=== PATIENT | male | born 1935 | race Caucasian/White ===

== ENCOUNTER 2019-08-15 13:53 | Outpatient (CLI) | payer MEDICARE, SELFPAY ==
--- NOTE | 2019-08-15 14:04 | XR_ITS ---
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 Sternotomy with mediastinal clips. Elevation right hemidiaphragm. Lungs: Moderate chronic emphysematous changes. No acute pulmonary infiltrates. Bones: Mild thoracic curve. Right rotator cuff anchor. XR/XR chest 2V* [id number] IMPRESSION: 1. Moderate chronic emphysematous changes. No acute pulmonary infiltrates. 2. Sternotomy with CABG. 3. Chronic elevation right hemidiaphragm unchanged.
== END 2019-08-15 13:54 | disposition home or self-care (01) ==
LOC: RADWPI 13:58
PROVIDERS: Family Provider Family Medicine; PCP Family Medicine; Visit Provider Family Medicine
DX: R76.11 Nonspecific reaction to tuberculin skin test without active tuberculosis (principal); Z95.1 Presence of aortocoronary bypass graft
CPT/HCPCS: 71046

== ENCOUNTER 2019-11-28 20:59 | Inpatient (IN) | payer MEDICARE, SELFPAY ==
[2019-11-28 21:09] VITALS: BP 110/60; PULSE 82; RESP 17; TEMP 37; O2SAT 94; BMI 30.7
--- NOTE | 2019-11-28 21:12 | XRR_ITS ---
PROCEDURE INFORMATION: Exam: XR Chest, 1 View Exam date and time: 11/28/2019 9:32 PM Age: 84 years old Clinical indication: Other: Weakness; Prior surgery; Surgery type: Cabg; Patient HX: PT denies cp, SOB or cough TECHNIQUE: Imaging protocol: XR of the chest Views: 1 view. COMPARISON: CR XR chest 2V* [id number] 08/15/2019 2:22 PM FINDINGS: Lungs: Lungs are well aerated without a focal area of consolidation. Pleural space: Unremarkable. No pleural effusion. No pneumothorax. Heart/Mediastinum: cardiac silhouette is enlarged. Prior sternotomy. Bones/joints: See Heart/Mediastinum finding. XR/XR chest 1V portable [id number] IMPRESSION: Lungs are well aerated without a focal area of consolidation.
--- NOTE | 2019-11-28 21:13 | ECG_ITS ---
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 Measurements Intervals Arabi Rate: 74 P: 11 DC: 176 QRS: -5 QRSD: 110 T: -7 QT: 401 QTc: 447 Interpretive Statements SINUS RHYTHM MODERATE VOLTAGE CRITERIA FOR LVH, CONSIDER NORMAL VARIANT [MEETS CRITERIA IN ONE OF: R(aVL), S(V1), R(V5), R(V5/V6)+S(V1)] INFERIOR MYOCARDIAL INFARCTION , OF INDETERMINATE AGE [40+ ms Q WAVE AND/OR ST/T ABNORMALITY IN II/aVF] No previous ECG available for comparison Electronically Signed On 11-29-2019 18:26:17 CDT by Catrina Feldman M.D. [email or web address]
--- NOTE | 2019-11-28 21:14 | ED_ITS ---
HPI - Weakness General: Chief complaint: Weakness Stated complaint: WEAKNESS/FALL Time Seen by Provider: 11/28/19 21:08 Source: patient and EMS Mode of arrival: EMS Limitations: no limitations History of Present Illness: HPI Narrative: 84-year-old male states has been having weakness over the last 2 days. He states that he has had 2 falls. He denies any cough or fever. Denies any worsening or improving factors. States he just feels weak. Complaint: generalized weakness Associated symptoms: Denies chest pain, chills, dysuria, easy bruising, fever(s), headache(s), nausea or vomiting Review of Systems Const: Denies: fever(s), chills, body aches or change in appetite Eyes: Denies: blurry vision or eye discomfort ENMT: Denies: throat pain or dental pain Card: Denies: chest pain Resp: Denies: dyspnea GI: Denies: abdominal pain, nausea, vomiting or diarrhea : Denies: dysuria Musc: Reports: muscle weakness Skin/Breast: Denies: rash Neuro: Denies: headache(s) Psych: Denies: depression Ty/Lymph: Denies: easy bruising All/Imm: Denies: urticaria PFSH ED PFSH: Medical History Diabetes Hypertension Lumbar spinal stenosis Surgical History History of coronary artery bypass graft Social History Smoking and tobacco status: never smoked Alcohol intake: never Physical Exam Const: COMMON NORMALS: no acute distress, patient oriented x3 and healthy appearing HENMT: COMMON NORMALS: normocephalic and atraumatic HEAD & SCALP: normocephalic and atraumatic Eye: COMMON NORMALS: Equal, round and reactive pupils present and EOMs intact bilaterally PUPIL: Yes Equal, round and reactive pupils present Neck/C-Spine: COMMON NORMALS: full ROM and supple Chest: COMMONS NORMALS: normal inspection of the chest and normal palpation of entire chest wall Resp: COMMON NORMALS: normal respiratory effort, No retractions, No use of accessory muscles and clear to auscultation bilaterally AUSCULTATION: clear to auscultation bilaterally Cardio: COMMON NORMALS: regular rate, regular rhythm and No murmurs present (Cardio) RATE: regular rate RHYTHM: regular rhythm GI: COMMON NORMALS: Normal to inspection, nondistended, normoactive bowel sounds present, Soft to palpation, non-tender and no masses PALPATION: Yes Soft to palpation Extremity: COMMON NORMALS: normal to inspection and full ROM Neuro: COMMON NORMALS: patient oriented x3, moves all extremities and no focal motor deficits Psych: COMMON NORMALS: mental status grossly normal, Normal thought process present and cooperative THOUGHT PROCESS: Normal thought process present Skin: COMMON NORMALS: no rashes or lesions noted and no wounds GENERAL SKIN EXAM: no rashes or lesions noted Course Vital Signs: Vital signs: Vital Signs Temperature 98.6 F 11/28/19 21:09 Pulse Rate 62 11/28/19 23:10 Respiratory Rate 16 11/28/19 23:10 Blood Pressure 105/51 11/28/19 23:10 Pulse Oximetry 96 11/28/19 23:10 MDM - Weakness MDM Narrative: Medical decision making narrative: Later presents here with generalized weakness likely from hyponatremia. He has had multiple falls. Patient given IV fluids here and I spoke to hospitalist will admit to correct his sodium. Lab Data: Labs: Lab Results 11/28/19 11/28/19 11/28/19 Range/Units 20:50 20:50 23:09 WBC 5.4 (4.0-10.0) 10^3/ uL RBC 4.28 (4.1-5.3) 10^6/u L Hgb 13.2 (11.7-16.6) g/dL Hct 39.0 L (42.0-52.0) % MCV 91.1 (80-94) fL MCH 30.8 (28.0-34.0) pg MCHC 33.8 (30.0-36.0) g/dL RDW 12.5 (12.1-15.1) % Plt Count 158 (130-400) 10^3/c mm MPV 8.9 (7.4-10.4) fL Neut % (Auto) 67.8 % Lymph % (Auto) 25.1 % [place] % (Auto) 6.3 % Eos % (Auto) 0.0 % Baso % (Auto) 0.4 % Neut # (Auto) 3.65 (1.8-7.7) 10^3/u L Lymph # (Auto) 1.4 (0.8-4.8) 10^3/u L [place] # (Auto) 0.3 (0.2-0.9) 10^3/u L Eos # (Auto) 0.0 (0.0-0.8) 10^3/u L Baso # (Auto) 0.0 (0.0-0.1) 10^3/u L Nucleated RBC % (a uto) 0 % Nucleated RBCs # 0.0 /100WBC Sodium 125 L (136-145) mmol/L Potassium 4.3 (3.5-5.1) mmol/L Chloride 91 L (98-107) mmol/L Carbon Dioxide 23 (22-29) mmol/L Anion Gap 15.3 (5-19) BUN 20 (8-23) mg/dL Creatinine 1.5 H (0.7-1.2) mg/dL GFR Calculation Not Reportable Glucose 225 H (65-115) mg/dL Calculated Osmolal ity 270 L (285-295) mOsm/k g Calcium 8.5 (8.5-10.5) mg/dL Total Bilirubin 0.3 (0.15-1.2) mg/dL AST 25 (0-40) U/L ALT 20 (0-41) U/L Alkaline Phosphata se 81 (40-130) IU/L Total Protein 6.7 (6.6-8.7) g/dL Albumin 3.6 (3.5-5.2) g/dL Globulin 3.1 (1.3-4.6) g/dL Urine Color Yellow (Yellow) Urine Appearance Clear (CLEAR) Urine pH 5 (5-7) Ur Specific Gravit y 1.020 (1.005-1.030) Urine Protein Neg (Negative) Urine Glucose (UA) Norm (Normal) Urine Ketones Negative (Negative) Urine Blood Neg (Negative) Urine Nitrate Negative (Negative) Urine Bilirubin Neg (Negative) Urine Urobilinogen Norm (Negative) mg/dL Ur Leukocyte Amelia ase Negative (Negative) Imaging Data^: CT Head: Attestation: I personally reviewed and interpreted this imaging study as follows: Radiologist's impression: [address] [place] [address] [place] [address] CT Scan Report Signed Patient: Tam Louise Unit #: [id number] : 1935 Age/Sex: 84 / M ADM Date: 11/28/19 Loc: ER Room/Bed: Attending Dr: Ordering Provider/Ordering MD: Mike Leonard MD Date of Service: 11/28/19 Procedure(s): CT head wo con* [id number] Accession Number(s): [id number] Report Number: [id number] PROCEDURE INFORMATION: Exam: CT Head Without Contrast Exam date and time: 11/28/2019 9:30 PM Age: 84 years old Clinical indication: Pain; Weakness, extremity; Bilateral; Headache TECHNIQUE: Imaging protocol: Computed tomography of the head without contrast. Radiation optimization: All CT scans at this facility use at least one of these dose optimization techniques: automated exposure control; mA and/or kV adjustment per patient size (includes targeted exams where dose is matched to clinical indication); or iterative reconstruction. COMPARISON: No relevant prior studies available. RADIATION DOSE METRICS: Total DLP (mGy-cm): 768.77 FINDINGS: Brain: Moderate diffuse cortical volume loss. Mild hypodensities in supratentorial periventricular and subcortical white matter. No intracranial hemorrhage. Ventricles: No ventriculomegaly. Bones/joints: Unremarkable. No acute fracture. Paranasal sinuses: Visualized sinuses are unremarkable. No fluid levels. Mastoid air cells: Visualized mastoid air cells are well aerated. Orbits: Bilateral cataract surgery. Soft tissues: Unremarkable. CT/CT head wo con* [id number] IMPRESSION: 1. No acute intracranial abnormality. 2. Mild microangiopathy. Discharge Plan Discharge Patient Disposition: Home Clinical Impression: Hyponatremia, Generalized weakness Condition: Stable Prescriptions: No Action nitroglycerin [Nitrostat] 0.4 mg tablet, sublingual 0.4 mg SUBLINGUAL Q5M PRN (Reason: Constipation) RF: 0 isosorbide mononitrate 30 mg tablet extended release 24 hr 60 mg PO BID RF: 0 carvedilol [Coreg] 25 mg tablet 25 mg PO ONCE RF: 0 furosemide [Lasix] 40 mg tablet 40 mg PO DAILY RF: 0 insulin asp prt-insulin aspart [Novolog Mix 70-30 U-100 Insuln] 100 unit/mL (70-30) solution 16 unit SUBCUT .in the evening RF: 0 atorvastatin 40 mg tablet 40 mg PO DAILY RF: 0 spironolactone 25 mg tablet 25 mg PO DAILY RF: 0 clopidogrel 75 mg tablet 75 mg PO DAILY RF: 0 terazosin 5 mg capsule 5 mg PO DAILY RF: 0 ranolazine 500 mg tablet extended release 12 hr 500 mg PO ONCE RF: 0 aspirin [Adult Aspirin Regimen] 81 mg tablet,delayed release (DR/EC) 81 mg PO DAILY RF: 0 losartan 25 mg tablet RF: 0 Colace 100 mg RF: 0 Lasix 40 mg RF: 0 Referrals: Latoya Thao MD [Primary Care Provider] - Coding Level of Care Code ED Squadron Worker for Chg Fwd Exam Comprehensive
[2019-11-28 21:18] LABS: Basophils % 0.4 %; Hemoglobin 13.2 g/dL (11.7-16.6); Lymphocytes # 1.4 10^3/uL (0.8-4.8); Lymphocytes % 25.1 %; Mean Corpuscular HGB Conc 33.8 g/dL (30.0-36.0); Mean Corpuscular Hemoglobin 30.8 pg (28.0-34.0); Mean Corpuscular Volume 91.1 fL (80-94); Mean Platelet Volume 8.9 fL (7.4-10.4); Monocytes # 0.3 10^3/uL (0.2-0.9); Monocytes % 6.3 %; Neutrophils # 3.65 10^3/uL (1.8-7.7); Neutrophils % 67.8 %; Nucleated Red Blood Cells % 0 %; Platelet Count 158 10^3/cmm (130-400); Red Blood Count 4.28 10^6/uL (4.1-5.3); Red Cell Distribution Width 12.5 % (12.1-15.1); White Blood Count 5.4 10^3/uL (4.0-10.0)
[2019-11-28 21:32] VITALS: BP 103/59; PULSE 73; RESP 16; O2SAT 93
[2019-11-28 21:34] LABS: Alanine Aminotransferase 20 U/L (0-41); Albumin Level 3.6 g/dL (3.5-5.2); Alkaline Phosphatase 81 IU/L (40-130); Anion Gap 15.3 (5-19); Aspartate Amino Transferase 25 U/L (0-40); Blood Urea Nitrogen 20 mg/dL (8-23); Calcium 8.5 mg/dL (8.5-10.5); Carbon Dioxide 23 mmol/L (22-29); Chloride 91 mmol/L (98-107); Globulin 3.1 g/dL (1.3-4.6); Glucose 225 mg/dL (65-115); Osmolality Calculated 270 mOsm/kg (285-295); Potassium 4.3 mmol/L (3.5-5.1); Sodium 125 mmol/L (136-145); Total Bilirubin 0.3 mg/dL (0.15-1.2); Total Protein 6.7 g/dL (6.6-8.7)
[2019-11-28] MEDS: sodium chloride 0.9% 1,000 ML 999 ML IV (21:36)
[2019-11-28 22:37] VITALS: BP 108/53; PULSE 64; RESP 16; O2SAT 91
[2019-11-28 23:10] VITALS: BP 105/51; PULSE 62; RESP 16; O2SAT 96
[2019-11-28 23:19] LABS: Add Urine Microscopic? NO
[2019-11-28 23:25] LABS: Bilirubin Urine Neg (Negative); Blood Urine Neg (Negative); Glucose Urine UA Norm (Normal); Ketones Urine Negative (Negative); Leukocyte Esterase Urine Negative (Negative); Nitrate Urine Negative (Negative); Protein Urine Neg (Negative); Urine Appearance Clear (CLEAR); Urine Color Yellow (Yellow); Urobilinogen Urine Norm (Negative); pH Urine 5 (5-7)
--- NOTE | 2019-11-28 23:31 | PM.HP ---
Providers/Chief Complaint Primary Care Provider: Latoya Thao MD Chief Complaint: WEAKNESS/FALL History of Present Illness Tam Louise is a 84 year old male who was notified by [employer] 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 He is currently on Lasix and spironolactone came in today with generalized weakness and falls. is at the bedside who is endorsing that for last 1 month Mr. Mandujano has been experiencing generalized weakness, fatigue without any fever, dysuria, vomiting, shortness of breath, chest pain. He has had multiple falls. Today after his shower he was so weak that he could not get out of his bathroom on his own, called his grandson who assisted him to get to the bed, as soon as they reached near bedside he fell again on the floor out of weakness, no syncope or seizure-like activity. called EMS to take him to the ED for further evaluation. Diagnosis in the ER revealed normal hemodynamics, sinus bradycardia, hyponatremia, CT head negative for acute abnormalities, MARGARITO, dehydration. He was given 1 L normal, chest x-ray revealed chronic emphysematous changes, sternotomy with CABG findings, right hemidiaphragm, no new changes as compared to previous x-ray, no signs of UTI Review of Systems Const: Reports: chills, body aches, change in appetite, change in weight and fatigue; Denies: fever(s) Eyes: Denies: change in vision ENMT: Denies: throat pain Card: Denies: chest pain Resp: Denies: dyspnea GI: Denies: abdominal pain, nausea or vomiting : Denies: flank pain Musc: Reports: muscle cramps and muscle weakness; Denies: neck pain Skin/Breast: Denies: rash Neuro: Reports: weakness in extremities and frequent falls Psych: Denies: anxiety Endo: Denies: polyuria Ty/Lymph: Denies: easy bruising All/Imm: Denies: urticaria Medications/Allergies Home Medications Medication Instructions Recorded Confirmed Last Taken Type aspirin 81 mg tablet,delayed 81 mg PO DAILY 08/11/19 11/28/19 Unknown History release atorvastatin 40 mg tablet 40 mg PO DAILY 08/11/19 11/28/19 Unknown History carvedilol 25 mg tablet 25 mg PO ONCE tab 08/11/19 Unknown History clopidogrel 75 mg tablet 75 mg PO DAILY 08/11/19 11/28/19 Unknown History furosemide 40 mg tablet 40 mg PO DAILY 08/11/19 Unknown History insulin aspar prt-insulin aspart 16 unit SUBCUT .in the evening ml 08/11/19 Unknown History 100 unit/mL (70-30) subcutaneous soln isosorbide mononitrate 30 mg 60 mg PO BID tab 08/11/19 11/28/19 1 Day Ago History tablet,extended release 24 hr ~11/27/19 nitroglycerin 0.4 mg sublingual 0.4 mg SUBLINGUAL Q5M PRN 08/11/19 11/28/19 1 Day Ago History tablet ~11/27/19 ranolazine 500 mg tablet,extended 500 mg PO ONCE tab 08/11/19 08/11/19 Unknown History release,12 hr spironolactone 25 mg tablet 25 mg PO DAILY 08/11/19 08/11/19 Unknown History terazosin 5 mg capsule 5 mg PO DAILY 08/11/19 08/11/19 Unknown History Colace 100 mg 11/28/19 Unknown History Lasix 40 mg 11/28/19 1 Day Ago History ~11/27/19 losartan 11/28/19 11/28/19 Unknown History Allergies Allergy/AdvReac Type Severity Reaction Status Date / Time No Known Allergies Allergy Verified 08/11/19 08:50 PFSH Acute PFSH: Medical History Diabetes Eustachian tube anomaly Hypertension Lumbar spinal stenosis Memory loss, short term Prostatism Surgical History H/O rotator cuff surgery History of cholecystectomy History of coronary artery bypass graft History of shoulder surgery Family History Other Diabetes Social History Smoking and tobacco status: never smoked Alcohol intake: never Household members: spouse Housing: House Vitals/I&O/Wt Last Vital Signs Temp 98.6 F 11/28/19 21:09 Pulse 62 09/21/20 23:10 Resp 16 11/28/19 23:10 BP 105/51 11/28/19 23:10 Pulse Ox 96 11/28/19 23:10 Weight last 48 hrs Weight 83.915 kg Physical Exam Narrative: EXAM NARRATIVE: Elderly male Awake alert oriented x3 GCS 15 Appears dehydrated S1, S2 no tachycardia heart failure Sternotomy scar Abdomen soft distended bowel sound present Lower extremity no edema gangrene ulcer Bilateral breath sounds without adventitious sounds No active respiratory distress Multiple petechia bruises of extremities Great nail, onychomycosis Data : 11/28/19 20:50 11/28/19 20:50 A&P Assessment and plan (1) Hyponatremia: Status: Acute (2) Generalized weakness: Status: Acute (3) Diabetes: Status: Acute Qualifiers: Diabetes mellitus type: type 2 Diabetes mellitus terminal supervisor insulin use: without residential use Diabetes mellitus complication status: without complication Qualified Code(s): E11.9 - Type 2 diabetes mellitus without complications (4) Peripheral neuropathy: Status: Acute Additional A&P Information Hyponatremia Previous sodium level seems to be normal Patient clinically looks dehydrated, has been taking Lasix and spironolactone on daily basis Most likely cause is diuretic use I will keep him on low-dose normal saline check sodium level in 4 hours to adjust fluid rate Check serum, urine, osmolarity, urine sodium and TSH Clinically looks dehydrated Mild hyperglycemia 225 Generalized weakness with frequent falls Patient carries history of neuropathy I believe current hyponatremia has a role to play for recent falls No source of UTI, x-ray is unremarkable, Sinus bradycardia noted on EKG: Hold AV alberto blocking agent, follow-up with TSH, MARGARTIO most likely secondary to dehydration Hold nephrotoxic agent continue fluid resuscitation History of coronary disease status post CABG x4 No active chest pain, EKG reviewed Type 2 diabetes: Hyperglycemia without DKA, would use moderate sliding scale Consistent carbohydrate diet Consistent carbohydrate diet DVT prophylaxis Heparin Attestations Medical Necessity Statement*: Anticipating discharge in less than 48 hours continued monitoring for hyponatremia and, PT evaluation in the morning Time Spent in Patient Care: (>than 50% of time spent in counselling and/or direct pt care on unit). 35mins Coding Level of Care Code Acute Guest Service Agent for g Fwd Diagnoses Hyponatremia E87.1 Generalized weakness R53.1 Diabetes E11.9 Diabetes mellitus type: type 2 Diabetes mellitus residential insulin use: without terminal supervisor use Diabetes mellitus complication status: without complication Peripheral neuropathy G62.9
[2019-11-29] VITALS (8 sets, daily range): BP systolic 123–166; BP diastolic 60–80; PULSE 56–67; RESP 15–18; TEMP 36.8–38.7; O2SAT 94–98
[2019-11-29 02:00] LABS: Uric Acid 6.4 mg/dL (3.4-7.0)
[2019-11-29 02:53] LABS: Urine Random Sodium 61 mmol/L
[2019-11-29] MEDS: sodium chloride 0.9% 1,000 ML 30 ML IV (03:19)
[2019-11-29] MEDS: heparin 5,000 unit/mL INJ 1 mL 5000 UNIT SUBCUT ×3 (03:19→18:18)
[2019-11-29 05:36] LABS: Hemoglobin 11.5 g/dL (11.7-16.6); Lymphocytes # 1.2 10^3/uL (0.8-4.8); Lymphocytes % 28.3 %; Mean Corpuscular HGB Conc 32.9 g/dL (30.0-36.0); Mean Corpuscular Hemoglobin 29.9 pg (28.0-34.0); Mean Corpuscular Volume 91.1 fL (80-94); Mean Platelet Volume 9.2 fL (7.4-10.4); Monocytes # 0.4 10^3/uL (0.2-0.9); Monocytes % 9.1 %; Neutrophils # 2.66 10^3/uL (1.8-7.7); Neutrophils % 62.4 %; Nucleated Red Blood Cells % 0 %; Platelet Count 139 10^3/cmm (130-400); Red Blood Count 3.84 10^6/uL (4.1-5.3); Red Cell Distribution Width 12.5 % (12.1-15.1); White Blood Count 4.3 10^3/uL (4.0-10.0)
[2019-11-29 06:02] LABS: Blood Urea Nitrogen 17 mg/dL (8-23); Calcium 7.8 mg/dL (8.5-10.5); Carbon Dioxide 22 mmol/L (22-29); Chloride 96 mmol/L (98-107); Glucose 193 mg/dL (65-115); Osmolality Calculated 273 mOsm/kg (285-295); Sodium 128 mmol/L (136-145)
[2019-11-29 06:25] LABS: Glucose Point of Care 211 mg/dL (70-110)
[2019-11-29] MEDS: atorvastatin 40 mg Tablet PO (08:04)
[2019-11-29] MEDS: clopidogrel 75 mg Tablet PO (08:04)
[2019-11-29] MEDS: aspirin 81 mg EC Tablet PO (08:04)
[2019-11-29 08:57] LABS: Sodium 128 mmol/L (136-145)
--- NOTE | 2019-11-29 10:20 | P.PN_ITS ---
Subjective Subjective: Interval history: No acute events in the last 24 hours. Patient worked with physical therapy. He has good strength in all his extremity. He was able to move around without any fall. Vitals reviewed labs reviewed. Vitals/I&O/Wt Last Vital Signs Temp 98.7 F 11/29/19 07:36 Pulse 57 L 11/29/19 07:36 Resp 16 11/29/19 07:36 BP 124/68 11/29/19 07:36 Pulse Ox 97 11/29/19 07:36 11/28/19 11/29/19 11/29/19 22:59 06:59 14:59 Intake Total 1120 / 1120 240 / 240 Output Total 150 / 150 Balance 970 / 970 240 / 240 Weight last 48 hrs Weight 83.915 kg Physical Exam Narrative: EXAM NARRATIVE: EXAM NARRATIVE: Elderly male Awake alert oriented x3 GCS 15 Appears dehydrated S1, S2 no tachycardia heart failure Sternotomy scar Abdomen soft distended bowel sound present Lower extremity no edema gangrene ulcer Bilateral breath sounds without adventitious sounds No active respiratory distress Multiple petechia bruises of extremities Great nail, onychomycosis Data : 11/29/19 04:03 11/29/19 12:23 A&P Assessment and plan (1) Hyponatremia: Status: Acute (2) Generalized weakness: Status: Acute (3) Diabetes: Status: Acute Qualifiers: Diabetes mellitus type: type 2 Diabetes mellitus long term care social worker insulin use: without prison use Diabetes mellitus complication status: without complication Qualified Code(s): E11.9 - Type 2 diabetes mellitus without complications (4) Peripheral neuropathy: Status: Acute Additional A&P Information Hypovolemic hyponatremia Previous sodium level seems to be normal Patient clinically looks dehydrated, has been taking Lasix and spironolactone on daily basis Most likely cause is poor oral intake along with diuretic. Encourage oral intake. Continue to monitor serum sodium. TSH: normal Follow serum, urine, osmolarity, urine sodium Generalized weakness with frequent falls Patient carries history of neuropathy I believe current hyponatremia has a role to play for recent falls No source of UTI, x-ray is unremarkable, Sinus bradycardia noted on EKG: Continue to follow telemetry MARGARITO most likely secondary to dehydration Hold nephrotoxic agent continue fluid resuscitation History of coronary disease status post CABG x4 No active chest pain, Type 2 diabetes: Hyperglycemia without DKA, would use moderate sliding scale Consistent carbohydrate diet Consistent carbohydrate diet DVT prophylaxis Heparin Imaging studies: 2D echo: 1. Normal left ventricular size and systolic function. Mild concentric left ventricular hypertrophy. With no diagnostic regional wall motion abnormalities. Left ventricular ejection fraction is estimated at 55%. Normal diastolic function. 2. Normal pulmonary artery pressure. 3. Sclerotic aortic valve with no significant stenosis or regurgitation. 4. No prior similat studies to compare. Attestations Medical Necessity Statement*: Patient needs to be in hospital for management and work of frequent falls and generalized weakness. Coding Level of Care Code Acute Artificial Log Machine Operator for [facility] Fwd Diagnoses Hyponatremia E87.1 Generalized weakness R53.1 Diabetes E11.9 Diabetes mellitus type: type 2 Diabetes mellitus long term care social worker insulin use: without prison use Diabetes mellitus complication status: without complication Peripheral neuropathy G62.9
[2019-11-29 11:50] LABS: Glucose Point of Care 156 mg/dL (70-110)
--- NOTE | 2019-11-29 12:20 | USCV_ITS ---
Tam Louise Age: 84 Gender: M : 1935 Exam Date: 11/29/2019 12:43 Ordering Phys: Tai Gale MD Technologist: Verito Doyle [place] [facility] [place]: DIZZINESS WITH FREQUENT FALLS BP: / HR: 63 Rhythm: Sinus Technical Quality: Adequate MEASUREMENTS (Male / Female) Normal Values 2D ECHO LV Diastolic Diameter PLAX 5.4 cm 4.2 - 5.9 / 3.9 - 5.3 cm LV Systolic Diameter PLAX 4.4 cm LV Chamber Size 4.4 cm IVS Diastolic Thickness 1.5 cm 0.6 - 1.0 / 0.6 - 0.9 cm IVS Systolic Thickness 2.0 cm LVPW Diastolic Thickness 1.4 cm 0.6 - 1.0 / 0.6 - 0.9 cm LVPW Systolic Thickness 1.8 cm RV Chamber Size 4.0 cm LVOT Diameter 2.0 cm LV Ejection Fraction 2D Teich 35.4 % LV Ejection Fraction MOD 2C 45.6 % LV Ejection Fraction 2C AL 46.2 % LA Diameter 4.9 cm LA Width 3.3 cm LA Height 5.6 cm RA Width 4.9 cm RA Height 6.0 cm Aorta at Sinotubular Diameter 3.0 cm M-MODE LV Diastolic Diameter MM 6.1 cm 4.2 - 5.9 / 3.9 - 5.3 cm LV Systolic Diameter MM 4.9 cm LV Ejection Fraction MM Teich 39.7 % IVS Diastolic Thickness MM 1.4 cm 0.6 - 1.0 / 0.6 - 0.9 cm IVS Systolic Thickness MM 1.3 cm LVPW Diastolic Thickness MM 1.2 cm 0.6 - 1.0 / 0.6 - 0.9 cm LVPW Systolic Thickness MM 1.6 cm RV Diastolic Diameter MM 1.6 cm Aortic Annulus Diameter 2.9 cm LA Ao Ratio MM 1.7 MV E Point Septal Separation 1.3 cm DOPPLER AV Peak Velocity 140.0 cm/s LVOT Peak Velocity 91.0 cm/s AV Area Cont Eq vti 2.5 cm squared AV Area Cont Eq pk 2.1 cm squared MV Area PHT 3.0 cm squared Mitral E to A Ratio 0.9 MV E' Velocity 10.0 cm/s Mitral E to MV E' Ratio 11.5 Mitral E to LV E' Lateral Ratio 10.1 Mitral E to LV E' Septal Ratio 13.5 TR Peak Velocity 128.0 cm/s TR Peak Gradient 6.6 mmHg TR Mean Velocity 69.8 cm/s TR Mean Gradient 2.3 mmHg TR Velocity Time Integral 30.5 cm TV Peak E Velocity 91.0 cm/s Right Atrial Pressure 3.0 mmHg Pulmonary Artery Systolic Pressu 9.6 mmHg PV Peak Velocity 51.0 cm/s RV Acceleration Time 0.2 s RV Ejection Time 0.4 s RV AcT/ET 0.4 FINDINGS Left Ventricle Normal left ventricular size and systolic function. Mild concentric left ventricular hypertrophy. With no diagnostic regional wall motion abnormalities. Left ventricular ejection fraction is estimated at 55%. Normal diastolic function. Right Ventricle Normal right ventricular size and systolic function, RVSP 9.6 mmHg. Right Atrium Right atrium not well visualized. Left Atrium Upper normal left atrial size. Mitral Valve Moderate mitral annular calcification. No mitral valve stenosis. Trace mitral valve regurgitation. Aortic Valve Thickened and calcified sclerotic aortic valve. No aortic valve stenosis. No aortic valve regurgitation. Tricuspid Valve Tricuspid valve not well visualized. Trace tricuspid valve regurgitation. Pulmonic Valve Pulmonic valve not well visualized. Pericardium No pericardial effusion. Aorta Normal-sized aortic root. CONCLUSIONS 1. Normal left ventricular size and systolic function. Mild concentric left ventricular hypertrophy. With no diagnostic regional wall motion abnormalities. Left ventricular ejection fraction is estimated at 55%. Normal diastolic function. 2. Normal pulmonary artery pressure. 3. Sclerotic aortic valve with no significant stenosis or regurgitation. 4. No prior similat studies to compare. Angle Morrison MD (Electronically Signed) Final Date: 29 November 2019 16:04 S
--- NOTE | 2019-11-29 12:23 | ECG_ITS ---
[facility] Test Date: 2019-11-29 Pat Name: Tam Louise Department: Room: 251 Gender: Male Local [employer] Truck Driver: : 1935 Requested By: Tai Gale Order Number: [id number] Celia MD: Catrina Feldman M.D. Measurements Intervals Hunters Rate: 68 P: 68 [place]: 191 QRS: -6 QRSD: 112 T: 16 QT: 399 QTc: 427 Interpretive Statements SINUS RHYTHM POSSIBLE INFERIOR MYOCARDIAL INFARCTION [40+ ms Q WAVE AND/OR ST/T ABNORMALITY IN II/aVF], PROBABLY OLD Lead I to III are absent WARNING: DATA QUALITY MAY AFFECT INTERPRETATION Compared to ECG 11/28/2019 21:36:38 Defective EKG Electronically Signed On 11-29-2019 18:33:39 CDT by Catrina Feldman M.D. [id number]
[2019-11-29 12:54] LABS: Sodium 130 mmol/L (136-145)
[2019-11-29 16:33] LABS: Glucose Point of Care 223 mg/dL (70-110)
--- NOTE | 2019-11-29 21:02 | PC.NURSE ---
REPORTED TEMP. TO NURSE!
[2019-11-29 21:05] LABS: Glucose Point of Care 135 mg/dL (70-110)
--- NOTE | 2019-11-29 22:11 | XRR_ITS ---
PROCEDURE INFORMATION: Exam: XR Chest, 1 View Exam date and time: 11/29/2019 10:59 PM Age: 84 years old Clinical indication: Fever TECHNIQUE: Imaging protocol: XR of the chest Views: Frontal portable upright view of the chest. COMPARISON: CR XR chest 1V portable [id number] 11/28/2019 9:21 PM FINDINGS: Tubes, catheters and devices: The patient is status post median sternotomy with intact sternal cerclage wires. EKG leads are present overlying the chest. Right proximal humeral greater tuberosity suture anchor. Lungs: Moderately remainsIncreased right basilar pulmonary subsegmental atelectasis. The lungs are otherwise peripherally clear bilaterally. The pulmonary vasculature is normal. Pleural space: No pleural effusion. No pneumothorax. Heart/Mediastinum: The heart is normal in size and contour. Diaphragm: The right hemidiaphragm is mildly elevated. Bones/joints: Stable. XR/XR chest 1V portable [id number] IMPRESSION: Moderately remainsIncreased right basilar pulmonary subsegmental atelectasis.
[2019-11-29 23:05] LABS: D Dimer 1.73 ug/mIFEU (0-0.59)
[2019-11-30] VITALS (12 sets, daily range): BP systolic 110–166; BP diastolic 63–75; PULSE 57–70; RESP 15–25; TEMP 36.6–37.2; O2SAT 89–96
[2019-11-30 01:22] LABS: Add Urine Microscopic? YES; Bacteria Urine TRACE /hpf; Bilirubin Urine Neg (Negative); Blood Urine Neg (Negative); Glucose Urine UA 2+ (Normal); Ketones Urine Negative (Negative); Leukocyte Esterase Urine Negative (Negative); Nitrate Urine Negative (Negative); Protein Urine Trace (Negative); Urine Appearance Clear (CLEAR); Urine Color Dark Yellow (Yellow); Urobilinogen Urine Norm (Negative); pH Urine 5 (5-7)
[2019-11-30] MEDS: heparin 5,000 unit/mL INJ 1 mL 5000 UNIT SUBCUT ×3 (02:24→18:16)
[2019-11-30 06:50] LABS: Glucose Point of Care 194 mg/dL (70-110)
--- NOTE | 2019-11-30 07:00 | USCV_ITS ---
Tam Louise Age: 84 Gender: M : 1935 Exam Date: 11/30/2019 06:13 Ordering Phys: Crow Altman MD Technologist: Lisbet Lynn Exam Location: [facility] [place] Indication: DVT HISTORY: DVT. PROCEDURES: Venous duplex imaging was performed in bilateral lower extremities. The following venous structures were evaluated: common femoral vein, profunda vein, proximal portion of the greater saphenous vein, superficial femoral vein, and the popliteal vein. In addition, the posterior tibial and peroneal trunk were evaluated. Serial compression, augmentation maneuvers, and spectral Doppler flow evaluation were performed. FINDINGS: Normal 2-D Doppler and augmentation and compressibility throughout the lower extremity venous structures. Additional imaging through the proximal calf veins also reveals no thrombus. Limited evaluation of the greater saphenous vein is patent with no thrombus.. CONCLUSIONS No evidence of right lower extremity DVT. No evidence of left lower extremity DVT. Farhat Ojeda MD (Electronically Signed) Final Date: 30 November 2019 08:57 S
[2019-11-30] MEDS: clopidogrel 75 mg Tablet PO (08:24)
[2019-11-30] MEDS: aspirin 81 mg EC Tablet PO (08:24)
[2019-11-30] MEDS: atorvastatin 40 mg Tablet PO (08:24)
[2019-11-30] MEDS: FUROsemide 10 mg/mL SDV 2mL 20 MG IVP ×2 (09:18→18:14)
[2019-11-30] MEDS: levofloxacin-dextrose 5 % 750 MG/150 ML PREMIX 100 MG IV (09:18)
[2019-11-30] MEDS: sodium chloride 0.9% 1,000 ML 30 ML IV (09:18)
--- NOTE | 2019-11-30 10:25 | PM.PN ---
Subjective Subjective: Interval history: In the last 24 hours, patient was becoming progressively lethargic, and was complaining of fatigue. He also spiked temperature last night. X-ray chest done last night: Is suggestive of underlying pneumonia. We tested him for COVID 19 based on his changing presentation. Which came to be positive. Patient was started on COVID protocol. And he is being now transferred to COVID unit. Vital and labs have been reviewed. Medications: Reviewed: Yes Vitals/I&O/Wt Last Vital Signs Temp 98.2 F 11/30/19 07:34 Pulse 64 11/30/19 07:34 Resp 18 11/30/19 07:34 BP 124/64 11/30/19 07:34 Pulse Ox 96 11/30/19 07:34 11/29/19 11/30/19 11/30/19 22:59 06:59 14:59 Intake Total 240 / 480 120 / 600 1139.5 / 1139.5 Output Total 200 / 500 200 / 700 Balance 40 / -20 -80 / -100 1139.5 / 1139.5 Weight last 48 hrs Weight 83.915 kg Physical Exam Narrative: EXAM NARRATIVE: EXAM NARRATIVE: EXAM NARRATIVE: Elderly male Awake alert oriented x3 GCS 15 Appears dehydrated S1, S2 no tachycardia heart failure Sternotomy scar Abdomen soft distended bowel sound present Lower extremity no edema gangrene ulcer Bilateral basal crackles present no wheezing no rhonchi appreciated. Multiple petechia bruises of extremities Great nail, onychomycosis Data : 11/30/19 13:34 11/30/19 13:34 Micro: Microbiology 11/29/19 22:30 Blood Culture - Preliminary Blood SPECIMEN COLLECTED 11/29/19 22:27 Blood Culture - Preliminary Blood SPECIMEN COLLECTED A&P Assessment and plan (1) Hyponatremia: Status: Acute (2) Generalized weakness: Status: Acute (3) Diabetes: Status: Acute Qualifiers: Diabetes mellitus type: type 2 Diabetes mellitus care home insulin use: without manager long term care use Diabetes mellitus complication status: without complication Qualified Code(s): E11.9 - Type 2 diabetes mellitus without complications (4) Peripheral neuropathy: Status: Acute (5) Pneumonia due to COVID-19 virus: Status: Acute Additional A&P Information # COVID pneumonia:In the last 24 hours, patient was becoming progressively lethargic, and was complaining of fatigue. He also spiked temperature last night. X-ray chest done last night: Is suggestive of underlying pneumonia. We tested him for COVID 19 based on his changing presentation. Which came to be positive. Patient was started on COVID protocol. And he is being now transferred to COVID unit. We will order interleukin, trend d-dimer , ESR, CRP, serum ferritin. low threshold for Ac, currently on levofloxacin 750 IV daily. #Hypovolemic hyponatremia (improving) Previous sodium level seems to be normal Patient clinically looks dehydrated, has been taking Lasix and spironolactone on daily basis Most likely cause is poor oral intake along with diuretic. Encourage oral intake. Have Placed on Oral Salt tablets . continue to monitor serum sodium. TSH: normal Follow serum, urine, osmolarity, urine sodium #Generalized weakness with frequent falls Patient carries history of neuropathy I believe current hyponatremia has a role to play for recent falls No source of UTI, x-ray is unremarkable, Sinus bradycardia noted on EKG: Continue to follow telemetry. # MARGARITO most likely secondary to dehydration (resolved) Hold nephrotoxic agent. Continue to monitor kidney function. #Type 2 diabetes:would use moderate sliding scale. Monitor fingerstick glucose. Consistent carbohydrate diet #History of coronary artery disease status post CABG x4: Currently not complaining of any chest pain. EKG is normal. No acute intervention at this Consistent carbohydrate diet DVT prophylaxis Heparin 5000 q12 h daily Imaging studies: 2D echo: 1. Normal left ventricular size and systolic function. Mild concentric left ventricular hypertrophy. With no diagnostic regional wall motion abnormalities. Left ventricular ejection fraction is estimated at 55%. Normal diastolic function. 2. Normal pulmonary artery pressure. 3. Sclerotic aortic valve with no significant stenosis or regurgitation. 4. No prior similat studies to compare. lower extremity Doppler bilateral vein: no evidence of right lower extremity DVT. Attestations Medical Necessity Statement*: Patient needs to be in hospital for management of COVID pneumonia. Coding Level of Care Code Acute Program Strategist for [facility] Diagnoses Hyponatremia E87.1 Generalized weakness R53.1 Diabetes E11.9 Diabetes mellitus type: type 2 Diabetes mellitus care home insulin use: without manager long term care use Diabetes mellitus complication status: without complication Peripheral neuropathy G62.9 Pneumonia due to COVID-19 virus U07.1; J12.89
[2019-11-30 11:00] LABS: Glucose Point of Care 232 mg/dL (70-110)
--- NOTE | 2019-11-30 12:55 | P.TS_ITS ---
Transfer Summary Providers Date of Admission: 11/28/19 23:32 Date of Discharge: 11/30/19 Attending Provider at Admission: Crow Altman MD Attending Provider at Transfer: Tai Gale MD Primary Care Provider: Latoya Thao MD Anticipated Date of Transfer: Anticipated date of transfer: 11/30/19 Receiving Facility & Provider: Receiving Provider: [] Receiving facility: [] Diagnoses at Discharge Discharge Diagnosis (1) Hyponatremia: Status: Acute (2) Generalized weakness: Status: Acute (3) Diabetes: Status: Acute Qualifiers: Diabetes mellitus type: type 2 Diabetes mellitus fdc insulin use: without exterminator termite use Diabetes mellitus complication status: without complication Qualified Code(s): E11.9 - Type 2 diabetes mellitus without complications (4) Peripheral neuropathy: Status: Acute Reason for Visit Reason for Visit: WEAKNESS/FALL TS Data Data Completed and Pending: Completed Studies During Hospitalization Category Date Time Status CT head wo con* 7 0450 Urgent Cat Scan 11/28/19 21:12 Completed XR chest 1V home ble [id number] Stat Exams 11/29/19 22:11 Completed XR chest 1V home ble [id number] Urgent Exams 11/28/19 21:12 Completed CV echo complete* [id number] Stat Ultrasound 11/29/19 12:20 [place] [id number] Routin e Ultrasound 11/30/19 07:00 Completed Pending at discharge Category Date Time Status BMP [Basic Metabo lic Panel] Stat Lab 11/30/19 12:12 Ordered Blood Culture Sta t Lab 11/29/19 22:30 Results Blood Culture Sta t Lab 11/30/19 12:15 Ordered CBC Auto Diff [Co mplete Blood Count w/Auto] Stat Lab 11/30/19 12:12 Ordered Lactic Sepsis W/R eflex Stat Lab 11/30/19 12:19 Ordered Osmolality Serum Routine Lab 11/29/19 00:50 Received Osmolality Urine Routine Lab 11/29/19 01:42 Received Procalcitonin Sta t Lab 11/30/19 12:[address] at Lab 11/30/19 12:15 Uncollected Urine Culture Sta t Lab 11/30/19 12:15 Uncollected Labs from last 24 hours 11/30/19 11/30/19 11/30/19 10:58 06:28 00:45 D-Dimer POC Glucose 232 194 Urine Color Dark yellow Urine Appearance Clear Urine pH 5 Ur Specific Gravit y 1.020 Urine Protein Trace Urine Glucose (UA) 2+ Urine Ketones Negative Urine Blood Neg Urine Nitrate Negative Urine Bilirubin Neg Urine Urobilinogen Norm Ur Leukocyte Amelia ase Negative Urine RBC None Urine WBC None Ur Squamous Epith Cells None Amorphous Sediment Not Reportable Urine Bacteria Trace 11/29/19 11/29/19 11/29/19 22:27 20:38 16:28 D-Dimer 1.73 H POC Glucose 135 223 Urine Color Urine Appearance Urine pH Ur Specific Gravit y Urine Protein Urine Glucose (UA) Urine Ketones Urine Blood Urine Nitrate Urine Bilirubin Urine Urobilinogen Ur Leukocyte Amelia ase Urine RBC Urine WBC Ur Squamous Epith Cells Amorphous Sediment Urine Bacteria Vitals: Last Vital Signs Temp 98.6 F 11/30/19 11:17 Pulse 69 11/30/19 11:17 Resp 18 11/30/19 11:17 BP 110/68 11/30/19 11:17 Pulse Ox 92 11/30/19 11:17 TS Medications Medications Home Medications aspirin 81 mg tablet,delayed release 81 mg PO DAILY 08/11/19 [History Confirmed 11/29/19] atorvastatin 40 mg tablet 40 mg PO DAILY 08/11/19 [History Confirmed 11/29/19] clopidogrel 75 mg tablet 75 mg PO DAILY 08/11/19 [History Confirmed 11/29/19] furosemide 40 mg tablet 40 mg PO DAILY 08/11/19 [History Confirmed 11/29/19] isosorbide mononitrate 30 mg tablet,extended release 24 hr 60 mg PO BID tab 08/11/19 [History Confirmed 11/29/19] nitroglycerin 0.4 mg sublingual tablet 0.4 mg SUBLINGUAL Q5M PRN 08/11/19 [History Confirmed 11/29/19] spironolactone 25 mg tablet 25 mg PO DAILY 08/11/19 [History Confirmed 11/29/19] terazosin 5 mg capsule 5 mg PO BEDTIME 08/11/19 [History Confirmed 11/29/19] Colace 100 mg PO BID 11/28/19 [History Confirmed 11/29/19] losartan 25 mg PO DAILY 11/28/19 [History Confirmed 11/29/19] insulin detemir U-100 [Levemir FlexTouch U-100 Insuln] 25 unit SUBCUT BID 11/29/19 [History Confirmed 11/29/19] ranolazine 1,000 mg PO BID 11/29/19 [History Confirmed 11/29/19] Active Medications Acetaminophen (Tylenol) 650 mg PO Q4H PRN PRN Reason: MILD PAIN OR INCREASE TEMP Aspirin (Aspirin Ec) 81 mg PO DAILY [facility] Last Admin: 11/30/19 08:24 Dose: 81 mg Documented by: Atorvastatin Calcium (Lipitor) 40 mg PO DAILY [facility] Last Admin: 11/30/19 08:24 Dose: 40 mg Documented by: Clopidogrel Bisulfate (Plavix) 75 mg PO DAILY [facility] Last Admin: 11/30/19 08:24 Dose: 75 mg Documented by: Dextrose (D50w) 25 ml IVP ONCE PRN; Protocol PRN Reason: hypoglycemia protocol Dextrose (D50w) 50 ml IVP PRN PRN; Protocol PRN Reason: hypoglycemia protocol Glucagon (Glucagen) 1 mg IM ONCE PRN; Protocol PRN Reason: Adult Acute Hypoglycemia Prot. Guaifenesin/Dextromethorphan (Robitussin Dm Oral Liq) 5 ml PO Q4H PRN PRN Reason: COUGH Heparin Sodium (Beef Lung) (Heparin) 5,000 unit SUBCUT Q8H [facility] Last Admin: 11/30/19 09:18 Dose: 5,000 unit Documented by: Sodium Chloride (Sodium Chloride 0.9%) 1,000 mls @ 30 mls/hr IV .Q24H [facility] Last Admin: 11/30/19 09:18 Dose: 30 mls/hr Documented by: Dextrose (D5w) 500 mls @ 100 mls/hr IV ONCE PRN; Protocol PRN Reason: Adult Acute Hypoglycemia Prot Levofloxacin/Dextrose (Levaquin-D5w) 750 mg in 150 mls @ 100 mls/hr IV Q24H [facility]; Protocol Last Admin: 11/30/19 09:18 Dose: 100 mls/hr Documented by: Insulin Aspart (Novolog) 0 unit SUBCUT WM&BEDTIME [facility]; Protocol Last Admin: 11/30/19 12:08 Dose: 8 unit Documented by: Ranolazine (Ranexa) 500 mg PO ONCE [facility] Discharge Plan Discharge Patient Disposition: Home Condition: Stable Prescriptions: No Action nitroglycerin [Nitrostat] 0.4 mg tablet, sublingual 0.4 mg SUBLINGUAL Q5M PRN (Reason: Chest Pain) RF: 0 isosorbide mononitrate 30 mg tablet extended release 24 hr 60 mg PO BID RF: 0 furosemide [Lasix] 40 mg tablet 40 mg PO DAILY RF: 0 atorvastatin 40 mg tablet 40 mg PO DAILY RF: 0 spironolactone 25 mg tablet 25 mg PO DAILY RF: 0 clopidogrel 75 mg tablet 75 mg PO DAILY RF: 0 terazosin 5 mg capsule 5 mg PO BEDTIME RF: 0 aspirin [Adult Aspirin Regimen] 81 mg tablet,delayed release (DR/EC) 81 mg PO DAILY RF: 0 losartan 25 mg tablet 25 mg PO DAILY RF: 0 Colace 100 mg PO BID RF: 0 Levemir FlexTouch U-100 Insuln 100 unit/mL (3 mL) Insulin Pen 25 unit SUBCUT BID RF: 0 ranolazine 1,000 mg tablet extended release 12 hr 1,000 mg PO BID RF: 0 Referrals: Latoya Thao MD [Primary Care Provider] - Coding Level of Care Code Acute Mirror Installer for [facility] Diagnoses Hyponatremia E87.1 Generalized weakness R53.1 Diabetes E11.9 Diabetes mellitus type: type 2 Diabetes mellitus fdc insulin use: without fdc use Diabetes mellitus complication status: without complication Peripheral neuropathy G62.9
[2019-11-30 13:49] LABS: Basophils % 0.2 %; Hematocrit 36.4 % (42.0-52.0); Hemoglobin 12.3 g/dL (11.7-16.6); Lymphocytes # 1.1 10^3/uL (0.8-4.8); Lymphocytes % 25.6 %; Mean Corpuscular HGB Conc 33.8 g/dL (30.0-36.0); Mean Corpuscular Hemoglobin 30.7 pg (28.0-34.0); Mean Corpuscular Volume 90.8 fL (80-94); Mean Platelet Volume 9.2 fL (7.4-10.4); Monocytes # 0.3 10^3/uL (0.2-0.9); Monocytes % 6.9 %; Neutrophils # 2.89 10^3/uL (1.8-7.7); Neutrophils % 66.8 %; Nucleated Red Blood Cells % 0 %; Platelet Count 153 10^3/cmm (130-400); Red Blood Count 4.01 10^6/uL (4.1-5.3); Red Cell Distribution Width 12.5 % (12.1-15.1); White Blood Count 4.3 10^3/uL (4.0-10.0)
[2019-11-30 14:14] LABS: Lactic Sepsis W/Reflex 1.1 mmol/L (0.5-2.2)
[2019-11-30 14:26] LABS: Procalcitonin 0.09 ng/mL (0-0.5)
--- NOTE | 2019-11-30 14:45 | PC.SOCIAL ---
Extensive discussion with regarding transfer to [place] [facility]. does not feel confident in provider or care being provided. We discussed that it is not a good idea for her to transport via personal vehicle. If he requires hospitalization it is not safe to transfer without a medical collections specialist. We also discussed that transport via ambulance may not be covered if it is not medically necessary to transfer and in this patients case that is the case. She still wanted us to proceed and she was going to get a herron quote in meantime on cost of transport. Talked with Dr Gale and he is agreeable to arrange transport. Later called back and has decided not to transfer the patient. She is worried about the cost. Updated Dr Gale. Transfer had been arranged so he will call and cancel the transfer. In addition discussed her concerns with not feeling confident about care due to patient being hard of hearing and wont speak up to anyone but her. She is he communicator. It was discussed that Dr Gale may approve her to have alternate visiting hours from 8-11am to ensure she can be here during rounds. Dr Gale agreeable. Call placed to LAN Gaston in security and he has approved as well. Updated , charge nurse and provider. seems relieved. All questions reviewed and discussed in detail with . Updated Railroad Car Cleaning Supervisor Yesi as well.
[2019-11-30 15:11] LABS: Anion Gap 13.9 (5-19); Blood Urea Nitrogen 16 mg/dL (8-23); Calcium 7.9 mg/dL (8.5-10.5); Carbon Dioxide 22 mmol/L (22-29); Chloride 95 mmol/L (98-107); Glucose 196 mg/dL (65-115); Osmolality Calculated 271 mOsm/kg (285-295); Potassium 3.9 mmol/L (3.5-5.1); Sodium 127 mmol/L (136-145)
[2019-11-30 15:17] LABS: Osmolality Serum 272 mOsm/kg (278-305)
[2019-11-30 15:17] LABS: Osmolality Urine 510 mOsm/kg (50-1200)
[2019-11-30 15:45] LABS: SARS Covid-2 Antigen Positive (Negative)
[2019-11-30 17:54] LABS: Glucose Point of Care 164 mg/dL (70-110)
[2019-11-30] MEDS: sodium chloride 1 gm Tablet PO ×2 (18:16→21:22)
[2019-11-30] MEDS: dexamethasone 4 mg/mL INJ 6 MG IVP (18:17)
[2019-11-30 21:23] LABS: Glucose Point of Care 185 mg/dL (70-110)
[2019-12-01] VITALS (26 sets, daily range): BP systolic 108–183; BP diastolic 51–92; PULSE 52–88; RESP 15–28; TEMP 36.5–36.9; O2SAT 90–98
[2019-12-01] MEDS: heparin 5,000 unit/mL INJ 1 mL 5000 UNIT SUBCUT ×3 (02:45→17:18)
[2019-12-01 04:27] LABS: Hematocrit 37.2 % (42.0-52.0); Hemoglobin 12.4 g/dL (11.7-16.6); Lymphocytes # 0.9 10^3/uL (0.8-4.8); Lymphocytes % 21.3 %; Mean Corpuscular HGB Conc 33.3 g/dL (30.0-36.0); Mean Corpuscular Hemoglobin 30.5 pg (28.0-34.0); Mean Corpuscular Volume 91.6 fL (80-94); Mean Platelet Volume 9.1 fL (7.4-10.4); Monocytes # 0.3 10^3/uL (0.2-0.9); Monocytes % 7.4 %; Neutrophils # 2.86 10^3/uL (1.8-7.7); Neutrophils % 70.8 %; Nucleated Red Blood Cells % 0 %; Platelet Count 146 10^3/cmm (130-400); Red Blood Count 4.06 10^6/uL (4.1-5.3); Red Cell Distribution Width 12.5 % (12.1-15.1)
[2019-12-01 05:04] LABS: Alanine Aminotransferase 24 U/L (0-41); Albumin Level 2.8 g/dL (3.5-5.2); Alkaline Phosphatase 67 IU/L (40-130); Anion Gap 16.1 (5-19); Aspartate Amino Transferase 35 U/L (0-40); Blood Urea Nitrogen 19 mg/dL (8-23); C Reactive Protein 63.1 mg/L (0.0-4.9); Calcium 8.1 mg/dL (8.5-10.5); Carbon Dioxide 22 mmol/L (22-29); Chloride 97 mmol/L (98-107); Ferritin 623 ng/mL (30-400); Glucose 216 mg/dL (65-115); Osmolality Calculated 281 mOsm/kg (285-295); Potassium 4.1 mmol/L (3.5-5.1); Sodium 131 mmol/L (136-145); Total Bilirubin 0.3 mg/dL (0.15-1.2); Total Protein 5.8 g/dL (6.6-8.7)
[2019-12-01 05:25] LABS: D Dimer 1.47 ug/mIFEU (0-0.59)
[2019-12-01 06:41] LABS: Erythrocyte Sedimentation Rate 36 mm/hr (0-10)
[2019-12-01 08:39] LABS: Glucose Point of Care 217 mg/dL (70-110)
[2019-12-01] MEDS: clopidogrel 75 mg Tablet PO (09:18)
[2019-12-01] MEDS: FUROsemide 10 mg/mL SDV 4mL 40 MG IVP (09:18)
[2019-12-01] MEDS: aspirin 81 mg EC Tablet PO (09:18)
[2019-12-01] MEDS: atorvastatin 40 mg Tablet PO (09:18)
[2019-12-01] MEDS: sodium chloride 1 gm Tablet PO ×4 (09:19→20:06)
[2019-12-01] MEDS: levofloxacin-dextrose 5 % 750 MG/150 ML PREMIX 100 MG IV (09:20)
--- NOTE | 2019-12-01 13:38 | P.PN_ITS ---
Subjective Subjective: Interval history: Mr. Louise reports he is feeling much better today. He is on nasal cannula oxygen, but otherwise reports his breathing feeling comfortable. Denies any chest pain or pressure. Says has had no nausea or vomiting, and feels that his appetite is good. No abdominal pain or diarrhea. Feels little bit stronger. He is happy with his improvement. Vitals/I&O/Wt Last Vital Signs Temp 98.5 F 12/01/19 07:00 Pulse 66 12/01/19 11:00 Resp 15 12/01/19 11:00 BP 164/92 12/01/19 11:00 Pulse Ox 94 12/01/19 11:00 11/30/19 12/01/19 12/01/19 22:59 06:59 14:59 Intake Total 0 / 1139.5 650 / 650 Output Total 250 / 450 260 / 710 275 / 275 Balance -250 / 689.5 -260 / 429.5 375 / 375 Physical Exam Const: COMMON NORMALS: no acute distress OTHER: Awake, alert, pleasant, conversant. Not in discomfort. HENMT: COMMON NORMALS: oropharynx normal Neck/C-Spine: COMMON NORMALS: no JVD Resp: COMMON NORMALS: normal respiratory effort and clear to auscultation bilaterally AUSCULTATION: clear to auscultation bilaterally Cardio: COMMON NORMALS: no JVD, regular rhythm, S1 normal heart sound present, S2 normal heart sound present and No murmurs present (Cardio) RHYTHM: regular rhythm HEART SOUNDS: S1 normal heart sound present and S2 normal heart sound present GI: COMMON NORMALS: Normal to inspection, nondistended, normoactive bowel sounds present, Soft to palpation and non-tender PALPATION: Yes Soft to palpation Extremity: COMMON NORMALS: no joint enlargement and no pedal edema Neuro: COMMON NORMALS: moves all extremities Skin: COMMON NORMALS: no rashes or lesions noted GENERAL SKIN EXAM: no rashes or lesions noted Data : 12/01/19 03:50 12/01/19 03:50 Micro: Microbiology 11/29/19 22:30 Blood Culture - Preliminary Blood NEGATIVE TO DATE 11/29/19 22:27 Blood Culture - Preliminary Blood NEGATIVE TO DATE 11/30/19 13:34 Blood Culture - Preliminary Blood SPECIMEN COLLECTED 11/30/19 13:37 Blood Culture - Preliminary Blood SPECIMEN COLLECTED A&P Assessment and plan (1) Pneumonia due to COVID-19 virus: Severe COVID-19 pneumonia with hypoxia, requiring oxygen, yesterday very weak, fatigued, and had altered mental status. This appears to have resolved, today he is awake, alert, reports he is feeling better. Very pleasant and conversant. Denies any complaints today. At this time continue remdesevir and dexamethasone for treatment of severe COVID-19 pneumonia. With pneumonia noted on x-ray, continue Levaquin for possibility of superimposed bacterial pneumonia. Follow-up sputum culture. Continue DVT prophylaxis. Continue oxygen, wean as tolerating. Supportive care. Prone as tolerating. Status: Acute (2) Hyponatremia: Better. Continue to monitor. DC cardiac diet, liberalize sodium intake. Sodium chloride tablets. Status: Acute (3) Generalized weakness: He feels little bit better today. Continue treatment of COVID-19 pneumonia as above. Treatment of possible bacterial pneumonia. Hyponatremia is improving. Continue to monitor heart rate due to previous bradycardia. Status: Acute (4) Diabetes: Continue insulin sliding scale. Status: Acute Qualifiers: Diabetes mellitus type: type 2 Diabetes mellitus long term care pharmacist insulin use: without prison use Diabetes mellitus complication status: without complication Qualified Code(s): E11.9 - Type 2 diabetes mellitus without complications (5) Peripheral neuropathy: Status: Acute Additional A&P Information # MARGARITO most likely secondary to dehydration (resolved) Hold nephrotoxic agent. Continue to monitor kidney function. #History of coronary artery disease status post CABG x4: Currently not complaining of any chest pain. EKG is normal. No acute intervention at this Attestations Medical Necessity Statement*: Continue admission for assessment management of severe COVID-19 pneumonia, possible bacterial superinfection in gentleman with underlying coronary disease, diabetes, mild acute kidney injury. Coding Level of Care Code Acute Senior Systems Engineer for [facility] Diagnoses Pneumonia due to COVID-19 virus U07.1; J12.89 Hyponatremia E87.1 Generalized weakness R53.1 Diabetes E11.9 Diabetes mellitus type: type 2 Diabetes mellitus prison insulin use: without long term care pharmacist use Diabetes mellitus complication status: without complication Peripheral neuropathy G62.9
[2019-12-01 14:09] LABS: Glucose Point of Care 326 mg/dL (70-110)
[2019-12-01 17:02] LABS: Glucose Point of Care 221 mg/dL (70-110)
[2019-12-01] MEDS: dexamethasone 4 mg/mL INJ 6 MG IVP (20:06)
[2019-12-01] MEDS: acetaminophen 325 mg Tablet 650 MG PO (20:10)
[2019-12-01 20:55] LABS: Glucose Point of Care 218 mg/dL (70-110)
[2019-12-02] VITALS (28 sets, daily range): BP systolic 130–171; BP diastolic 65–86; PULSE 49–130; RESP 12–28; TEMP 36.8–37.1; O2SAT 86–97
[2019-12-02] MEDS: heparin 5,000 unit/mL INJ 1 mL 5000 UNIT SUBCUT ×3 (01:40→17:09)
[2019-12-02 05:29] LABS: Basophils % 0.2 %; Hematocrit 36.8 % (42.0-52.0); Hemoglobin 12.2 g/dL (11.7-16.6); Lymphocytes # 0.8 10^3/uL (0.8-4.8); Lymphocytes % 15.2 %; Mean Corpuscular HGB Conc 33.2 g/dL (30.0-36.0); Mean Corpuscular Hemoglobin 29.9 pg (28.0-34.0); Mean Corpuscular Volume 90.2 fL (80-94); Mean Platelet Volume 9.9 fL (7.4-10.4); Monocytes # 0.3 10^3/uL (0.2-0.9); Neutrophils # 3.99 10^3/uL (1.8-7.7); Nucleated Red Blood Cells % 0 %; Platelet Count 173 10^3/cmm (130-400); Red Blood Count 4.08 10^6/uL (4.1-5.3); Red Cell Distribution Width 12.3 % (12.1-15.1); White Blood Count 5.1 10^3/uL (4.0-10.0)
[2019-12-02 05:56] LABS: Alanine Aminotransferase 26 U/L (0-41); Albumin Level 2.8 g/dL (3.5-5.2); Alkaline Phosphatase 66 IU/L (40-130); Aspartate Amino Transferase 32 U/L (0-40); Blood Urea Nitrogen 28 mg/dL (8-23); Calcium 7.7 mg/dL (8.5-10.5); Carbon Dioxide 20 mmol/L (22-29); Chloride 95 mmol/L (98-107); Glucose 327 mg/dL (65-115); Osmolality Calculated 280 mOsm/kg (285-295); Sodium 126 mmol/L (136-145); Total Bilirubin 0.3 mg/dL (0.15-1.2); Total Protein 5.8 g/dL (6.6-8.7)
[2019-12-02 06:49] LABS: Glucose Point of Care 319 mg/dL (70-110)
[2019-12-02] MEDS: aspirin 81 mg EC Tablet PO (08:21)
[2019-12-02] MEDS: clopidogrel 75 mg Tablet PO (08:21)
[2019-12-02] MEDS: FUROsemide 10 mg/mL SDV 4mL 40 MG IVP (08:21)
[2019-12-02] MEDS: levofloxacin-dextrose 5 % 750 MG/150 ML PREMIX 100 MG IV (08:22)
[2019-12-02] MEDS: sodium chloride 1 gm Tablet PO ×4 (08:23→20:14)
[2019-12-02] MEDS: atorvastatin 40 mg Tablet PO (08:31)
[2019-12-02 11:13] LABS: Glucose Point of Care 301 mg/dL (70-110)
--- NOTE | 2019-12-02 13:43 | PC.NURSE ---
spoke with ,ju.she requests that pt take levimir for blood sugar control.states that novolog does not work for him .dr price has approved this at 20 mg bid.ju states she will bring the vial to hospital.
[2019-12-02 16:55] LABS: Glucose Point of Care 243 mg/dL (70-110)
--- NOTE | 2019-12-02 18:50 | P.PN_ITS ---
Subjective Subjective: Interval history: His sugars have been somewhat elevated, and says that Lantus did not work for him in the past. NovoLog says does not work very well, but detemir does. He otherwise says he has been trying to get up. They have been trying to wean down his oxygen, but he is still been requiring it. Denies chest pain or pressure. No headache, no nausea or vomiting. Has been eating. No diarrhea. Vitals/I&O/Wt Last Vital Signs Temp 98.8 F 12/02/19 15:00 Pulse 72 12/02/19 16:15 Resp 24 H 12/02/19 15:00 BP 134/65 12/02/19 07:00 Pulse Ox 96 12/02/19 16:15 12/02/19 12/02/19 12/02/19 06:59 14:59 22:59 Intake Total 99 / 1932 480 / 480 Output Total 1150 / 1150 200 / 1350 Balance 99 / 607 -670 / -670 -200 / -870 Physical Exam Const: COMMON NORMALS: no acute distress OTHER: Awake, alert, pleasant, conversant. Not in discomfort. HENMT: COMMON NORMALS: oropharynx normal Neck/C-Spine: COMMON NORMALS: no JVD Resp: COMMON NORMALS: normal respiratory effort and clear to auscultation bilaterally AUSCULTATION: clear to auscultation bilaterally Cardio: COMMON NORMALS: no JVD, regular rhythm, S1 normal heart sound present, S2 normal heart sound present and No murmurs present (Cardio) RHYTHM: regular rhythm HEART SOUNDS: S1 normal heart sound present and S2 normal heart sound present GI: COMMON NORMALS: Normal to inspection, nondistended, normoactive bowel sounds present, Soft to palpation and non-tender PALPATION: Yes Soft to palpation Extremity: COMMON NORMALS: no joint enlargement and no pedal edema Neuro: COMMON NORMALS: moves all extremities Skin: COMMON NORMALS: no rashes or lesions noted GENERAL SKIN EXAM: no rashes or lesions noted Data : 12/02/19 04:00 12/02/19 04:00 Micro: Microbiology 11/30/19 21:51 Urine Culture - Preliminary Urine,Voided A&P Assessment and plan (1) Pneumonia due to COVID-19 virus: Gradually improving. Still requiring oxygen. Overall he feels a bit better. Sugars need better control. Otherwise he says has been try to get up more. No chest pain. Continue antiviral and steroid. Continue to wean off oxygen as tolerating. With pneumonia noted on x-ray, continue Levaquin for possibility of superimposed bacterial pneumonia. Sputum culture. Continue DVT prophylaxis. Prone as tolerating. Attempted to call his for an update but no answer. Status: Acute (2) Hyponatremia: Worse again today, 126, although does not appear symptomatic. Liberalize sodium intake. Sodium chloride tablets. Hold Lasix for now. Status: Acute (3) Generalized weakness: Has been more active. Trying to get up walk around the room a little bit. Continue treatment of COVID-19 pneumonia as above. Treatment of possible b acterial pneumonia. Hyponatremia does not appear to have contributed to symptoms. Continue to monitor heart rate due to previous bradycardia. Currently heart rate occasionally in the high 50s. Status: Acute (4) Diabetes: Continue insulin sliding scale. bringing in his detemir. Restart at a little bit lower dose at 20 twice daily. ( says he takes 30 twice daily, he says 25 twice daily). Escalate depending on blood glucose. Status: Acute Qualifiers: Diabetes mellitus type: type 2 Diabetes mellitus usp insulin use: without usp use Diabetes mellitus complication status: without complication Qualified Code(s): E11.9 - Type 2 diabetes mellitus without complications (5) Peripheral neuropathy: Status: Acute Additional A&P Information # MARGARITO most likely secondary to dehydration (resolved). Hold Lasix. Hold nephrotoxic agent. Continue to monitor kidney function. #History of coronary artery disease status post CABG x4: Currently not complaining of any chest pain. EKG is normal. No acute intervention at this Attestations Medical Necessity Statement*: Continue admission for assessment of management of severe COVID-19 pneumonia, bacterial pneumonia, hypoxia. Coding Level of Care Code Acute [employer] Teacher for [facility] Diagnoses Pneumonia due to COVID-19 virus U07.1; J12.89 Hyponatremia E87.1 Generalized weakness R53.1 Diabetes E11.9 Diabetes mellitus type: type 2 Diabetes mellitus administrative support associate insulin use: without administrative support associate use Diabetes mellitus complication status: without complication Peripheral neuropathy G62.9
[2019-12-02] MEDS: dexamethasone 4 mg/mL INJ 6 MG IVP (20:13)
[2019-12-02 20:57] LABS: Glucose Point of Care 284 mg/dL (70-110)
[2019-12-03] VITALS (29 sets, daily range): BP systolic 98–172; BP diastolic 60–101; PULSE 48–92; RESP 6–28; TEMP 36.2–36.8; O2SAT 89–97
[2019-12-03] MEDS: heparin 5,000 unit/mL INJ 1 mL 5000 UNIT SUBCUT ×3 (01:07→17:35)
[2019-12-03 05:59] LABS: Hematocrit 37.4 % (42.0-52.0); Hemoglobin 12.5 g/dL (11.7-16.6); Lymphocytes % 16.7 %; Mean Corpuscular HGB Conc 33.4 g/dL (30.0-36.0); Mean Corpuscular Hemoglobin 30.7 pg (28.0-34.0); Mean Corpuscular Volume 91.9 fL (80-94); Mean Platelet Volume 9.3 fL (7.4-10.4); Monocytes # 0.3 10^3/uL (0.2-0.9); Monocytes % 5.5 %; Neutrophils # 4.62 10^3/uL (1.8-7.7); Neutrophils % 77.3 %; Nucleated Red Blood Cells % 0 %; Platelet Count 203 10^3/cmm (130-400); Red Blood Count 4.07 10^6/uL (4.1-5.3); Red Cell Distribution Width 12.3 % (12.1-15.1)
[2019-12-03 06:13] LABS: D Dimer 1.25 ug/mIFEU (0-0.59)
[2019-12-03 06:17] LABS: C Reactive Protein 22.5 mg/L (0.0-4.9)
[2019-12-03 06:18] LABS: Anion Gap 15.4 (5-19); Blood Urea Nitrogen 29 mg/dL (8-23); Calcium 8.2 mg/dL (8.5-10.5); Carbon Dioxide 22 mmol/L (22-29); Chloride 100 mmol/L (98-107); Glucose 261 mg/dL (65-115); Osmolality Calculated 291 mOsm/kg (285-295); Potassium 4.4 mmol/L (3.5-5.1); Sodium 133 mmol/L (136-145)
--- NOTE | 2019-12-03 06:43 | PC.NURSE ---
Shift Events: Patient rested off and on throughout night. Tried to decrease stimulation as much as possible, such as lowering the lights, repositioning. Was able to fall asleep for a few hours. Good urine output. Updated family via phone call and was able to talk to family on his cellphone for a few mintutes. Remains on 2LO2. VSS.
[2019-12-03 07:57] LABS: Glucose Point of Care 276 mg/dL (70-110)
[2019-12-03] MEDS: polyethylene glycol 3350 Pkt 17 gm PO (08:45)
[2019-12-03] MEDS: sodium chloride 1 gm Tablet PO ×4 (08:46→20:46)
[2019-12-03] MEDS: clopidogrel 75 mg Tablet PO (08:53)
[2019-12-03] MEDS: sennosides-docusate Tablet 1 TAB PO (08:54)
[2019-12-03] MEDS: aspirin 81 mg EC Tablet PO (08:54)
[2019-12-03] MEDS: atorvastatin 40 mg Tablet PO (08:54)
[2019-12-03] MEDS: levofloxacin-dextrose 5 % 750 MG/150 ML PREMIX 100 MG IV (10:51)
--- NOTE | 2019-12-03 11:33 | PC.SOCIAL ---
IMM Update Pg. 2 of IMM updated with patient's via telephone. Verbalized understanding.
[2019-12-03 12:18] LABS: Glucose Point of Care 362 mg/dL (70-110)
[2019-12-03 17:27] LABS: Glucose Point of Care 248 mg/dL (70-110)
--- NOTE | 2019-12-03 18:58 | P.PN_ITS ---
Subjective Subjective: Interval history: Gradually feeling better. Breathing ok with NC. Not getting more short of breath with exertion. No chest pain. A bit unstable when walking. May need some supervision, although his does say that he at baseline does not walk very well. He otherwise denies any headache, nausea vomiting or diarrhea. He is curious about making some plans to go home. Vitals/I&O/Wt Last Vital Signs Temp 97.1 F L 12/03/19 12:03 Pulse 83 12/03/19 17:08 Resp 16 12/03/19 16:00 BP 139/79 12/03/19 16:00 Pulse Ox 94 12/03/19 17:08 12/03/19 12/03/19 12/03/19 06:59 14:59 22:59 Intake Total 100 / 930 480 / 480 490 / 970 Output Total 180 / 1850 350 / 350 200 / 550 Balance -80 / -920 130 / 130 290 / 420 Weight last 48 hrs Weight 82.9 kg Physical Exam Const: COMMON NORMALS: no acute distress OTHER: Awake, alert, pleasant, conversant. Not in discomfort. HENMT: COMMON NORMALS: oropharynx normal Neck/C-Spine: COMMON NORMALS: no JVD Resp: COMMON NORMALS: normal respiratory effort and clear to auscultation bilaterally AUSCULTATION: clear to auscultation bilaterally Cardio: COMMON NORMALS: no JVD, regular rhythm, S1 normal heart sound present, S2 normal heart sound present and No murmurs present (Cardio) RHYTHM: regular rhythm HEART SOUNDS: S1 normal heart sound present and S2 normal heart sound present GI: COMMON NORMALS: Normal to inspection, nondistended, normoactive bowel barbara nds present, Soft to palpation and non-tender PALPATION: Yes Soft to palpation Extremity: COMMON NORMALS: no joint enlargement and no pedal edema Neuro: COMMON NORMALS: moves all extremities Skin: COMMON NORMALS: no rashes or lesions noted GENERAL SKIN EXAM: no rashes or lesions noted Data : 12/03/19 05:00 12/03/19 05:00 Micro: Microbiology 11/30/19 21:51 Urine Culture - Final Urine,Voided A&P Assessment and plan (1) Pneumonia due to COVID-19 virus: Slowly improving, but still needing 3 L of oxygen. Continue to attempt to wean down. Continue antiviral and steroid. Discussed with his . She states that department health recommended that they be in isolation until at least December 14. Discussed with her to watch out for any concerning symptoms even if he ended up returning home with improvement sometime next week, to bring him back in ER in case there is any signs of increased work of breathing, tachypnea, cyanosis, or other red flags. She verbalized understanding that patients may sometimes worsen even after initially improving. Add incentive spirometry. Continue attempts to wean off oxygen. Continue antiviral and steroid. Continue to wean off oxygen as tolerating. With pneumonia noted on x-ray, continue Levaquin for possibility of superimposed bacterial pneumonia. Switch to oral. Sputum culture requested, but cough has not been productive. Mucinex. Continue DVT prophylaxis with Lovenox. D-dimer appears to be gradually decreasing. Recheck. Prone as tolerating. Discussed with his . Status: Acute (2) Hyponatremia: Improved. Liberalize sodium intake. Sodium chloride tablets. Discussed with his to get this reassessed with primary care office as he does not appear to have history of chronic hyponatremia, and would expect that this will resolve with resolution of his pulmonary condition. Hold Lasix for now. Status: Acute (3) Generalized weakness: This is much better. Had extreme weakness on Thursday. This has resolved. Still a little bit unstable will try to walk, but he has been trying to get out more. Trying to get up walk around the room a little bit. Continue treatment of COVID-19 pneumonia as above. Treatment of possible bacterial pneumonia. Hyponatremia does not appear to have contributed to symptoms. Continue to monitor heart rate due to previous bradycardia. Currently heart rate occasionally in the high 50s. Status: Acute (4) Diabetes: Continue insulin sliding scale. bringing in his detemir. Restart at a little bit lower dose at 20 twice daily. ( says he takes 30 twice daily, he says 25 twice daily). Escalate depending on blood glucose. Status: Acute Qualifiers: Diabetes mellitus complication status: without complication Diabetes mellitus termite helper insulin use: without assisted use Diabetes mellitus type: type 2 Qualified Code(s): E11.9 - Type 2 diabetes mellitus without complications (5) Peripheral neuropathy: Status: Acute Additional A&P Information # MARGARITO most likely secondary to dehydration (resolved). Hold Lasix. Hold nephrotoxic agent. Continue to monitor kidney function. #History of coronary artery disease status post CABG x4: Currently not complaining of any chest pain. EKG is normal. Monitor for any change in symptoms. Attestations Medical Necessity Statement*: Continue admission for assessment management of severe COVID-19 pneumonia. Hypoxia. Coding Level of Care Code Acute Milieu Technician for [facility] Fwd Exam Comprehensive Diagnoses Pneumonia due to COVID-19 virus U07.1; J12.89 Hyponatremia E87.1 Generalized weakness R53.1 Diabetes E11.9 Diabetes mellitus complication status: without complication Diabetes mellitus termite helper insulin use: without termite helper use Diabetes mellitus type: type 2 Peripheral neuropathy G62.9
[2019-12-03] MEDS: dexamethasone 4 mg/mL INJ 6 MG IVP (20:45)
[2019-12-03 21:32] LABS: Glucose Point of Care 169 mg/dL (70-110)
[2019-12-04] VITALS (27 sets, daily range): BP systolic 125–174; BP diastolic 65–84; PULSE 53–95; RESP 16–34; TEMP 36.5–37.1; O2SAT 83–97
[2019-12-04] MEDS: heparin 5,000 unit/mL INJ 1 mL 5000 UNIT SUBCUT ×3 (01:19→17:02)
[2019-12-04 04:45] LABS: Basophils % 0.1 %; Hematocrit 36.8 % (42.0-52.0); Hemoglobin 12.3 g/dL (11.7-16.6); Lymphocytes # 0.9 10^3/uL (0.8-4.8); Lymphocytes % 11.6 %; Mean Corpuscular HGB Conc 33.4 g/dL (30.0-36.0); Mean Corpuscular Hemoglobin 30.2 pg (28.0-34.0); Mean Corpuscular Volume 90.4 fL (80-94); Monocytes # 0.4 10^3/uL (0.2-0.9); Monocytes % 4.9 %; Neutrophils # 6.68 10^3/uL (1.8-7.7); Nucleated Red Blood Cells % 0 %; Platelet Count 223 10^3/cmm (130-400); Red Blood Count 4.07 10^6/uL (4.1-5.3); Red Cell Distribution Width 12.5 % (12.1-15.1)
[2019-12-04 05:05] LABS: Anion Gap 12.1 (5-19); Blood Urea Nitrogen 26 mg/dL (8-23); Calcium 8.3 mg/dL (8.5-10.5); Carbon Dioxide 22 mmol/L (22-29); Chloride 104 mmol/L (98-107); Glucose 149 mg/dL (65-115); Osmolality Calculated 286 mOsm/kg (285-295); Potassium 4.1 mmol/L (3.5-5.1); Sodium 134 mmol/L (136-145)
--- NOTE | 2019-12-04 06:45 | PC.NURSE ---
Shift Events: Patient remains on 3LO2. Patient's SpO2 would drop occasionally down into the 80's but would rebound with rest. Patient will have repeat Covid test today. Patient remains unsteady on his feet and needs at least 1 assist when getting up out of bed. Patient conversed with family last night; patient did not sleep well last night. May benefit from benadryl or Melatonin. VSS.
[2019-12-04 07:50] LABS: Glucose Point of Care 147 mg/dL (70-110)
[2019-12-04] MEDS: atorvastatin 40 mg Tablet PO (08:54)
[2019-12-04] MEDS: sennosides-docusate Tablet 1 TAB PO (08:54)
[2019-12-04] MEDS: aspirin 81 mg EC Tablet PO (08:54)
[2019-12-04] MEDS: clopidogrel 75 mg Tablet PO (08:54)
[2019-12-04] MEDS: polyethylene glycol 3350 Pkt 17 gm PO (08:57)
[2019-12-04] MEDS: sodium chloride 1 gm Tablet PO ×4 (08:57→21:17)
[2019-12-04 11:02] LABS: Glucose Point of Care 235 mg/dL (70-110)
[2019-12-04 18:18] LABS: Glucose Point of Care 213 mg/dL (70-110)
--- NOTE | 2019-12-04 18:45 | PC.NURSE ---
Received report on patient from Sophia FUNES. Assumed care at this time.
[2019-12-04] MEDS: dexamethasone 4 mg/mL INJ 6 MG IVP (20:00)
--- NOTE | 2019-12-04 20:31 | PM.PN ---
Subjective Subjective: Interval history: Subjectively he is feeling well. He says his not short of breath, no chest pain, no headache, no nausea vomiting or diarrhea. Has been eating well. Trying to get up and walk with his walker. Still has been requiring oxygen. Vitals/I&O/Wt Last Vital Signs Temp 98.3 F 12/04/19 17:00 Pulse 77 12/04/19 18:01 Resp 24 H 12/04/19 17:00 BP 149/67 12/04/19 17:00 Pulse Ox 95 12/04/19 18:01 12/04/19 12/04/19 12/04/19 06:59 14:59 22:59 Intake Total 100 / 1170 600 / 600 300 / 900 Output Total 200 / 200 Balance 100 / 440 400 / 400 300 / 700 Weight last 48 hrs Weight 82.9 kg Physical Exam Const: COMMON NORMALS: no acute distress OTHER: Awake, alert, pleasant, conversant. Not in discomfort. HENMT: COMMON NORMALS: oropharynx normal Neck/C-Spine: COMMON NORMALS: no JVD Resp: COMMON NORMALS: normal respiratory effort and clear to auscultation bilaterally AUSCULTATION: clear to auscultation bilaterally Cardio: COMMON NORMALS: no JVD, regular rhythm, S1 normal heart sound present, S2 normal heart sound present and No murmurs present (Cardio) RHYTHM: regular rhythm HEART SOUNDS: S1 normal heart sound present and S2 normal heart sound present GI: COMMON NORMALS: Normal to inspection, nondistended, normoactive bowel sounds present, Soft to palpation and non-tender PALPATION: Yes Soft to palpation Extremity: COMMON NORMALS: no joint enlargement GENERAL: Yes edema (1+) Neuro: COMMON NORMALS: moves all extremities Skin: COMMON NORMALS: no rashes or lesions noted GENERAL SKIN EXAM: no rashes or lesions noted Data : 12/04/19 04:00 12/04/19 04:00 A&P Assessment and plan (1) Pneumonia due to COVID-19 virus: Symptomatically he is doing well. He is eating well. Trying to get up and walk. He is still needing a excision, and we have not been successful in weaning down from the 3 L nasal cannula. I have been trying to be conservative so as not to cause his fluid overload. Still he is noted to have 1+ edema at home he takes Lasix. Will cautiously try to reduce him. Monitor I&O and renal function. Wean oxygen as tolerating. Repeat chest x-ray. There was last dose of his antiviral. Continue steroid for now. IS. Has been on Levaquin due to somewhat focal appearing consolidation with possible bacterial pneumonia. Mucinex. His d-dimer and CRP appear to be decreasing. Consider extended VTE prophylaxis on discharge. Discussed with his . She states that department health recommended that they be in isolation until at least December 14. Discussed with her to watch out for any concerning symptoms even if he ended up returning home with improvement sometime next week, to bring him back in ER in case there is any signs of increased work of breathing, tachypnea, cyanosis, or other red flags. She verbalized understanding that patients may sometimes worsen even after initially improving. Status: Acute (2) Hyponatremia: Improved. Liberalize sodium intake. Sodium chloride tablets. Discussed with his to get this reassessed with primary care office as he does not appear to have history of chronic hyponatremia, and would expect that this will resolve with resolution of his pulmonary condition. Cautiously resume Lasix. Status: Acute (3) Generalized weakness: This is much better. Had extreme weakness on Thursday. This has resolved. Still a little bit unstable will try to walk, but he has been trying to get out more. Trying to get up walk around the room a little bit. Continue treatment of COVID-19 pneumonia as above. Treatment of possible bacterial pneumonia. Hyponatremia does not appear to have contributed to symptoms. Continue to monitor heart rate due to previous bradycardia. Currently heart rate occasionally in the high 50s. Status: Acute (4) Diabetes: Continue insulin sliding scale. Detemir. Escalate depending on blood glucose. Status: Acute Qualifiers: Diabetes mellitus type: type 2 Diabetes mellitus marine oil terminal superintendent insulin use: without marine oil terminal superintendent use Diabetes mellitus complication status: without complication Qualified Code(s): E11.9 - Type 2 diabetes mellitus without complications (5) Peripheral neuropathy: Status: Acute Additional A&P Information # MARGARITO most likely secondary to dehydration (resolved). Lasix cautiously resumed. Monitor renal function. Hold nephrotoxic agent. #History of coronary artery disease status post CABG x4: Currently not complaining of any chest pain. EKG is normal. Monitor for any change in symptoms. Attestations Medical Necessity Statement*: Continue admission for assessment and management of severe COVID-19 pneumonia, hypoxia. Coding Level of Care Code Acute Lamp Stack Developer for [facility] Fwd Diagnoses Pneumonia due to COVID-19 virus U07.1; J12.89 Hyponatremia E87.1 Generalized weakness R53.1 Diabetes E11.9 Diabetes mellitus type: type 2 Diabetes mellitus group home insulin use: without group home use Diabetes mellitus complication status: without complication Peripheral neuropathy G62.9
[2019-12-04 21:02] LABS: Glucose Point of Care 162 mg/dL (70-110)
[2019-12-05] VITALS (14 sets, daily range): BP systolic 127–151; BP diastolic 62–75; PULSE 55–130; RESP 16–30; TEMP 36.9–37.1; O2SAT 90–98; BMI 30.4
[2019-12-05] MEDS: heparin 5,000 unit/mL INJ 1 mL 5000 UNIT SUBCUT ×2 (02:20→08:27)
[2019-12-05 04:44] LABS: Anion Gap 12.2 (5-19); Blood Urea Nitrogen 23 mg/dL (8-23); Calcium 8.2 mg/dL (8.5-10.5); Carbon Dioxide 23 mmol/L (22-29); Chloride 102 mmol/L (98-107); Glucose 151 mg/dL (65-115); Osmolality Calculated 283 mOsm/kg (285-295); Potassium 4.2 mmol/L (3.5-5.1); Sodium 133 mmol/L (136-145)
[2019-12-05 07:57] LABS: Glucose Point of Care 172 mg/dL (70-110)
--- NOTE | 2019-12-05 08:00 | XR_ITS ---
WS: [id number] PORTABLE CHEST HISTORY: hypoxia COMPARISON: 11/29/2019 Prior median sternotomy/CABG. Lung volumes are decreased. Slight elevation of the RIGHT hemidiaphragm. Increasing interstitial thic kening in the mid to lower lung briseno, greatest on the LEFT. No dense consolidation. Small RIGHT ple ural effusion suspected. Cardiac size: Mildly enlarged cardiac silhouette. Mediastinum/Aorta: Normal mediastinum. Prior rotator cuff repair on the RIGHT. Single anchor is present. XR/XR chest 1V portable [id number] IMPRESSION: 1. Interval development of mild interstitial edema versus pneumonitis bilatera lly. 2. Mild cardiomegaly. 3. Prior CABG.
[2019-12-05] MEDS: polyethylene glycol 3350 Pkt 17 gm PO (08:23)
[2019-12-05] MEDS: sennosides-docusate Tablet 1 TAB PO (08:23)
[2019-12-05] MEDS: aspirin 81 mg EC Tablet PO (08:23)
[2019-12-05] MEDS: clopidogrel 75 mg Tablet PO (08:23)
[2019-12-05] MEDS: FUROsemide 40 mg Tablet PO (08:26)
[2019-12-05] MEDS: sodium chloride 1 gm Tablet PO ×4 (08:27→21:07)
[2019-12-05] MEDS: atorvastatin 40 mg Tablet PO (08:27)
[2019-12-05 10:59] LABS: Glucose Point of Care 271 mg/dL (70-110)
--- NOTE | 2019-12-05 11:39 | P.PN_ITS ---
Subjective Subjective: Interval history: No acute events overnight. Hospital course noted. Examination sitting comfortably in bed. States he is ambulating. Denies having nausea, vomiting, headache. Still requiring up to 4 L nasal cannula oxygen supplementation to maintain saturation over 90%. He states his energy levels are good. His appetite is good. We discussed in detail for need of patient to be ambulating while in hospital, continuing doing incentive spirometry and flutter valve. Medications: Reviewed: Yes Vitals/I&O/Wt Last Vital Signs Temp 98.8 F 12/05/19 10:48 Pulse 85 12/05/19 10:48 Resp 17 12/05/19 10:48 BP 127/64 12/05/19 10:48 Pulse Ox 91 12/05/19 10:48 12/04/19 12/05/19 12/05/19 22:59 06:59 14:59 Intake Total 600 / 1200 240 / 1440 240 / 240 Output Total 240 / 440 400 / 840 200 / 200 Balance 360 / 760 -160 / 600 40 / 40 Weight last 48 hrs Weight 82.9 kg Physical Exam Narrative: EXAM NARRATIVE: General: No acute distress, AO x3 HEENT: PERRLA, pupils bilaterally equal and reactive Chest: Normal vesicular breath sounds, no added sounds, equal good air entry bilaterally CVS: S1-S2 regular, no murmurs, no tachycardia, no gallops, no rubs Abdomen: Soft, nontender, no organomegaly, bowel sounds present Neuro: No focal deficits, no facial deformity, AO x3, power 5/5 in all limbs Ext: B/l leg edema 1+ Data : 12/04/19 04:00 12/05/19 03:22 Micro: Microbiology 11/29/19 22:30 Blood Culture - Final Blood NO GROWTH AFTER 5 DAYS 11/29/19 22:27 Blood Culture - Final Blood NO GROWTH AFTER 5 DAYS A&P Assessment and plan (1) Pneumonia due to COVID-19 virus: Symptomatically he is doing well. He is eating well. Energy levels are good. Trying to get up and walk. Still requiring up to 3 to 6 L of oxygen supplementation to maintain saturation 90%. Patient has finished 5-day course of Remdesevir. He has also been getting Decadron. Switch Decadron to prednisone 40 mg daily. Most likely will require slow taper as an outpatient. Patient has remained afebrile. We will have to rule out other causes for hypoxia. Patient's d-dimer since admission has been mildly elevated. Will repeat d-dimer today. No CT in the chart. Cannot rule out PE. For now will start him on Eliquis 5 mg twice daily. Most likely will do a CTA tomorrow to determine how long he will require anticoagulation for. 14 days versus 6 months. Check proBNP, procalcitonin, sputum C/s, urine Legionella, bacterial antigen.. Patient does have mild congestion on chest x-ray today morning. We will start him on home dose of Lasix. Will monitor urine output in next any 4 hours. If required we will give IV Lasix 20 mg in the evening. Continue levofloxacin. Day 1 of treatment. Most likely will do a 5-day course. Start patient on Tessalon Perles, Advair, Spiriva. Incentive spirometry, flutter valve. Start patient on vitamin C, zinc. Strict input output charting, daily weights. Fluid restriction up to 1500 cc. Discussed with his . She states that department health recommended that they be in isolation until at least December 14. Discussed with her to watch out for any concerning symptoms even if he ended up returning home with improvement sometime next week, to bring him back in ER in case there is any signs of increased work of breathing, tachypnea, cyanosis, or other red flags. She verbalized understanding that patients may sometimes worse n even after initially improving. Status: Acute (2) Hyponatremia: Improved. Room level stable. Continue with salt tablets. Most likely this will resolve once pulmonary condition is resolved as well. Most likely patient would require to follow-up as an outpatient with a BMP in 2 weeks. Check sodium levels daily for now. Status: Acute (3) Generalized weakness: Multifactorial. Most likely b/c of COVID along with hyponatremia. This is much better. Had extreme weakness on Thursday. This has resolved. Still a little bit unstable will try to walk, but he has been trying to get out more. Trying to get up walk around the room a little bit. Status: Acute (4) Diabetes: Continue insulin sliding scale. Detemir. Escalate depending on blood g lucose. Status: Acute Qualifiers: Diabetes mellitus complication status: without complication Diabetes mellitus rodent exterminator insulin use: without rodent exterminator use Diabetes mellitus type: type 2 Qualified Code(s): E11.9 - Type 2 diabetes mellitus without complications (5) Peripheral neuropathy: Status: Acute Additional A&P Information # MARGARITO most likely secondary to dehydration (resolved). Lasix cautiously resumed. Monitor renal function. Hold nephrotoxic agent. #History of coronary artery disease status post CABG x4: Currently not complaining of any chest pain. EKG is normal. Monitor for any change in symptoms. We will restart home on her home medication of aspirin, statin, Ranexa, Imdur but at lower dose of 30 mg twice daily. Monitor for blood pressures and chest pain. Discussed in detail with both patient and patient's regarding his health. All the questions were answered. Also discussed about CODE STATUS. Patient states he would like to be full code. CODE STATUS change in the system. Attestations Medical Necessity Statement*: Hypoxia, COVID-19 pneumonia Time Spent in Patient Care: Greater than 35 minutes (>than 50% of time spent in counselling and/or direct pt care on unit) . Coding Level of Care Code Acute Foaming Machine Operator for [facility] Fwd Diagnoses Pneumonia due to COVID-19 virus U07.1; J12.89 Hyponatremia E87.1 Generalized weakness R53.1 Diabetes E11.9 Diabetes mellitus complication status: without complication Diabetes mellitus rodent exterminator insulin use: without [facility] use Diabetes mellitus type: type 2 Peripheral neuropathy G62.9
[2019-12-05] MEDS: zinc gluconate 50 mg Tablet PO (12:46)
[2019-12-05] MEDS: ascorbic acid 500 mg Tablet PO (12:46)
[2019-12-05 13:24] LABS: D Dimer 1.42 ug/mIFEU (0-0.59)
[2019-12-05 13:38] LABS: NT Pro B Type Natriuretic Pept 1586 pg/mL (0-450)
[2019-12-05 14:18] LABS: Procalcitonin 0.04 ng/mL (0-0.5)
[2019-12-05] MEDS: benzonatate 100 mg Capsule PO ×2 (14:46→21:07)
[2019-12-05] MEDS: levoFLOXacin 750 mg Tablet PO (14:46)
--- NOTE | 2019-12-05 15:18 | PC.SOCIAL ---
IMM Updated Updated pt on Pg 2 IMM via phone. Provided pt a copy. No questions voiced. Signed, dated, & timed copy for the chart.
[2019-12-05 17:00] LABS: Glucose Point of Care 253 mg/dL (70-110)
[2019-12-05] MEDS: apixaban 5 mg Tablet PO (17:03)
[2019-12-05] MEDS: isosorbide mononitrate ER 30 mg Tablet PO (17:05)
[2019-12-05] MEDS: ranolazine (12HR) 500 mg Tablet 1000 MG PO (17:06)
[2019-12-05 20:00] LABS: Glucose Point of Care 211 mg/dL (70-110)
[2019-12-06] VITALS (11 sets, daily range): BP systolic 114–148; BP diastolic 51–75; PULSE 65–77; RESP 15–24; TEMP 36.6–37.3; O2SAT 87–95
[2019-12-06 05:18] LABS: Interleukin 6 (IL-6) Serum 9.52 pg/mL (<5.00)
[2019-12-06 06:02] LABS: Basophils % 0.2 %; Eosinophils # 0.1 10^3/uL (0.0-0.8); Eosinophils % 0.6 %; Hemoglobin 12.5 g/dL (11.7-16.6); Lymphocytes # 1.4 10^3/uL (0.8-4.8); Lymphocytes % 13.4 %; Mean Corpuscular HGB Conc 32.9 g/dL (30.0-36.0); Mean Corpuscular Hemoglobin 29.8 pg (28.0-34.0); Mean Corpuscular Volume 90.5 fL (80-94); Mean Platelet Volume 8.9 fL (7.4-10.4); Monocytes # 0.6 10^3/uL (0.2-0.9); Monocytes % 5.9 %; Neutrophils # 8.03 10^3/uL (1.8-7.7); Neutrophils % 78.6 %; Nucleated Red Blood Cells % 0 %; Platelet Count 285 10^3/cmm (130-400); Red Cell Distribution Width 12.5 % (12.1-15.1); White Blood Count 10.2 10^3/uL (4.0-10.0)
[2019-12-06 06:18] LABS: Fibrinogen 512 mg/dL (174-498)
[2019-12-06] MEDS: levoFLOXacin 750 mg Tablet PO (06:18)
[2019-12-06 06:20] LABS: D Dimer 1.23 ug/mIFEU (0-0.59)
[2019-12-06 06:42] LABS: Alanine Aminotransferase 21 U/L (0-41); Albumin Level 2.9 g/dL (3.5-5.2); Alkaline Phosphatase 73 IU/L (40-130); Anion Gap 13.1 (5-19); Aspartate Amino Transferase 22 U/L (0-40); Blood Urea Nitrogen 25 mg/dL (8-23); C Reactive Protein 28.8 mg/L (0.0-4.9); Carbon Dioxide 24 mmol/L (22-29); Chloride 103 mmol/L (98-107); Creatine Phosphokinase 49 U/L (39-308); Globulin 2.1 g/dL (1.3-4.6); Glucose 52 mg/dL (65-115); Osmolality Calculated 284 mOsm/kg (285-295); Potassium 4.1 mmol/L (3.5-5.1); Sodium 136 mmol/L (136-145); Total Bilirubin 0.5 mg/dL (0.15-1.2)
[2019-12-06 06:43] LABS: Ferritin 534 ng/mL (30-400); Lactate Dehydrogenase 431 U/L (135-225); NT Pro B Type Natriuretic Pept 884 pg/mL (0-450)
[2019-12-06 06:58] LABS: Glucose Point of Care 58 mg/dL (70-110)
[2019-12-06 08:38] LABS: Glucose Point of Care 82 mg/dL (70-110)
[2019-12-06] MEDS: ascorbic acid 500 mg Tablet PO (08:53)
[2019-12-06] MEDS: apixaban 5 mg Tablet PO ×2 (08:53→17:11)
[2019-12-06] MEDS: FUROsemide 40 mg Tablet PO (08:53)
[2019-12-06] MEDS: predniSONE 20 mg Tablet 40 MG PO (08:53)
[2019-12-06] MEDS: benzonatate 100 mg Capsule PO ×3 (08:53→21:35)
[2019-12-06] MEDS: aspirin 81 mg EC Tablet PO (08:53)
[2019-12-06] MEDS: zinc gluconate 50 mg Tablet PO (08:53)
[2019-12-06] MEDS: atorvastatin 40 mg Tablet PO (08:53)
[2019-12-06] MEDS: sennosides-docusate Tablet 1 TAB PO (08:53)
[2019-12-06] MEDS: sodium chloride 1 gm Tablet PO ×4 (08:55→21:35)
[2019-12-06] MEDS: polyethylene glycol 3350 Pkt 17 gm PO (08:56)
[2019-12-06] MEDS: isosorbide mononitrate ER 30 mg Tablet PO ×2 (08:56→17:12)
[2019-12-06] MEDS: ranolazine (12HR) 500 mg Tablet 1000 MG PO ×2 (08:57→17:12)
[2019-12-06 11:39] LABS: Glucose Point of Care 131 mg/dL (70-110)
--- NOTE | 2019-12-06 15:12 | P.PN_ITS ---
Subjective Subjective: Interval history: No acute events overnight. Plan was to discharge him today. On examination patient saturation over 93% on 3 L nasal cannula. He states he is eating okay and states his energy levels are good. Unfortunately during home oxygen evaluation patient requiring up to 8 to 9 L of oxygen supplementation to maintain saturation over 90%.patient was asymptomatic without any dizziness, difficulty in breathing nausea. Plan is to hold off on discharge and walk patient multiple times today along with respiratory therapist and see how he feels. Depending on that we will plan for discharge tomorrow Medications: Reviewed: Yes Vitals/I&O/Wt Last Vital Signs Temp 98.6 F 12/06/19 08:34 Pulse 76 12/06/19 12:51 Resp 24 H 12/06/19 12:51 BP 131/71 12/06/19 12:51 Pulse Ox 92 12/06/19 12:51 12/06/19 12/06/19 12/06/19 06:59 14:59 22:59 Intake Total 270 / 270 Output Total 175 / 1600 770 / 770 Balance -175 / -880 -500 / -500 Weight last 48 hrs Weight 83.007 kg Weight 82.9 kg Physical Exam Narrative: EXAM NARRATIVE: General: No acute distress, AO x3 HEENT: PERRLA, pupils bilaterally equal and reactive Chest: Normal vesicular breath sounds, no added sounds, equal good air entry bilaterally CVS: S1-S2 regular, no murmurs, no tachycardia, no gallops, no rubs Abdomen: Soft, nontender, no organomegaly, bowel sounds present Neuro: No focal deficits, no facial deformity, AO x3, power 5/5 in all limbs Ext: B/l leg edema 1+ Data : 12/06/19 05:00 12/06/19 05:00 Micro: Microbiology 12/05/19 17:52 Gram Stain - Final Sputum - Expectorated Sputum 12/05/19 19:38 Legionella Urinary Antigen - Final Urine,Voided Bacterial Antigens - Final 11/30/19 13:34 Blood Culture - Final Blood NO GROWTH AFTER 5 DAYS 11/30/19 13:37 Blood Culture - Final Blood NO GROWTH AFTER 5 DAYS A&P Assessment and plan (1) Pneumonia due to COVID-19 virus: Symptomatically he is doing well. He is eating well. Energy levels are good. Trying to get up and walk. Still requiring up to 2 to 3 L to maintain saturation over 90% at rest but while ambulation goes up to 9 L to maintain saturation over 90% . Patient has finished 5-day course of Remdesevir. He has also been getting Decadron. Decadron changed to prednisone yesterday. Continue with prednisone 40 mg daily. Most likely patient will require slow taper as an outpatient. Patient has remained afebrile. We will have to rule out other causes for hypoxia. D-dimer is continued to remain elevated even after treatment. Patient requiring more oxygen supplementation on ambulation could be because of mild CHF or could be secondary to PE. Started on Eliquis yesterday. If patient requires more oxygen supplementation tomorrow on ambulation will do a CTA PE but will hold off for now and try with extra diuresis. proBNP trending down. Pro Law negative. Urine Legionella bacterial antigen negative. Overall patient does around 1300 cc negative since yesterday. We will give IV Lasix 20 mg stat. Continue levofloxacin. Day 2/5 of treatment. Start patient on Tessalon Perles, Advair, Spiriva. Incentive spirometry, flutter valve. Start patient on vitamin C, zinc. Strict input output charting, daily weights. Fluid restriction up to 1500 cc. Discussed with his . She states that department health recommended that they be in isolation until at least December 14. Discussed with her to watch out for any concerning symptoms even if he ended up returning home with improvement sometime next week, to bring him back in ER in case there is any signs of increased work of breathing, tachypnea, cyanosis, or other red flags. She verbalized understanding that patients may sometimes worsen even after initially improving. Status: Acute (2) Hyponatremia: Improved. Continue with salt tablets. Most likely this will resolve once pulmonary condition is resolved as well. Most likely patient would require to follow-up as an outpatient with a BMP in 2 weeks. Check sodium levels daily for now. Status: Acute (3) Generalized weakness: Multifactorial. Most likely b/c of COVID along with hyponatremia. This is much better. Had extreme weakness on Thursday. This has resolved. Still a little bit unstable will try to walk, but he has been trying to get out more. Trying to get up walk around the room a little bit. Status: Acute (4) Diabetes: Continue insulin sliding scale. Detemir. Escalate depending on blood glucose. Status: Acute Qualifiers: Diabetes mellitus type: type 2 Diabetes mellitus project management analyst insulin use: without project management analyst use Diabetes mellitus complication status: without complication Qualified Code(s): E11.9 - Type 2 diabetes mellitus without complications (5) Peripheral neuropathy: Status: Acute Additional A&P Information # MARGARITO most likely secondary to dehydration (resolved). Lasix cautiously resumed. Monitor renal function. Hold nephrotoxic agent. #History of coronary artery disease status post CABG x4: Currently not complaining of any chest pain. EKG is normal. Monitor for any change in symptoms. We will restart him on home medication of aspirin, statin, Ranexa, Imdur but at lower dose of 30 mg twice daily. Monitor for blood pressures and chest pain. Discussed in detail with both patient and patient's regarding his health. All the questions were answered. Also discussed about CODE STATUS. Patient states he would like to be full code. CODE STATUS change in the system. Attestations Medical Necessity Statement*: Acute hypoxia, COVID-19 Time Spent in Patient Care: Greater than 35 minutes (>than 50% of time spent in counselling and/or direct pt care on unit) . Coding Level of Care Code Acute Signwriter for [facility] Fwd Diagnoses Pneumonia due to COVID-19 virus U07.1; J12.89 Hyponatremia E87.1 Generalized weakness R53.1 Diabetes E11.9 Diabetes mellitus type: type 2 Diabetes mellitus project management analyst insulin use: without project management analyst use Diabetes mellitus complication status: without complication Peripheral neuropathy G62.9
--- NOTE | 2019-12-06 15:16 | CTR_ITS ---
PROCEDURE INFORMATION: Exam: CT Angiography Chest With Contrast Exam date and time: 12/06/2019 3:36 PM Age: 84 years old Clinical indication: Shortness of breath; Additional info: Covid-19, rule out pe TECHNIQUE: Imaging protocol: Computed tomographic angiography of the chest with intravenous contrast. 3D rendering (Not supervised by radiologist): MIP and/or 3D reconstructed images were created by the technologist. Radiation optimization: All CT scans at this facility use at least one of these dose optimization techniques: automated exposure control; mA and/or kV adjustment per patient size (includes targeted exams where dose is matched to clinical indication); or iterative reconstruction. Contrast material: OMNI 350; Contrast volume: 95 ml; Contrast route: INTRAVENOUS (IV); COMPARISON: CR XR chest 1V portable [id number] 12/05/2019 8:21 AM RADIATION DOSE METRICS: Total DLP (mGy-cm): 1783.65 FINDINGS: Pulmonary arteries: Normal. No pulmonary emboli. Aorta: Calcification of the abdominal aorta and/or iliac arteries consistent with atherosclerotic vessel disease. Lungs: Moderate to severe geographic bilateral ground-glass opacities with crazy paving and some consolidation and air bronchograms, most consistent with severe Covid-19 pneumonia. Pleural space: Unremarkable. No pneumothorax. No pleural effusion. Heart: Stable CABG procedure. Lymph nodes: Borderline mediastinal and right hilar adenopathy which is most likely reactive. Liver: Calcified hepatic granulomas. Spleen: Calcified splenic granulomas. Bones/joints: Mild thoracic spondylosis. Moderate thoracic spondylosis. Soft tissues: Unremarkable. CT/CT angio chest PE protcl [id number] IMPRESSION: 1. Moderate to severe geographic bilateral ground-glass opacities with crazy paving and some consolidation and air bronchograms, most consistent with severe Covid-19 pneumonia. 2. Stable CABG procedure. 3. No pulmonary embolus or aortic dissection. Radiation Dose CTDIVOL = (mGy): DLP = 1783.65 (mGy-cm)
[2019-12-06] MEDS: FUROsemide 10 mg/mL SDV 2mL 20 MG IVP (15:26)
[2019-12-06] MEDS: iohexol 350 mg/mL 100 mL Btl IV (16:13)
[2019-12-06 16:56] LABS: Glucose Point of Care 178 mg/dL (70-110)
--- NOTE | 2019-12-06 18:45 | PC.NURSE ---
Received report on patient from Sophia FUNES. Assumed care at this time.
[2019-12-06 21:29] LABS: Glucose Point of Care 206 mg/dL (70-110)
[2019-12-07] VITALS (24 sets, daily range): BP systolic 96–164; BP diastolic 54–115; PULSE 60–88; RESP 10–26; TEMP 35.8–37.1; O2SAT 85–96; BMI 30.4
[2019-12-07] MEDS: levoFLOXacin 750 mg Tablet PO (06:27)
[2019-12-07 06:30] LABS: Fibrinogen 557 mg/dL (174-498)
[2019-12-07 06:33] LABS: D Dimer 1.38 ug/mIFEU (0-0.59)
[2019-12-07 07:00] LABS: C Reactive Protein 67.3 mg/L (0.0-4.9); Creatine Phosphokinase 46 U/L (39-308); Ferritin 547 ng/mL (30-400); Lactate Dehydrogenase 505 U/L (135-225); NT Pro B Type Natriuretic Pept 478 pg/mL (0-450)
[2019-12-07 07:37] LABS: Glucose Point of Care 128 mg/dL (70-110)
[2019-12-07 07:56] LABS: Coronavirus Lab Test PTC Positive
[2019-12-07] MEDS: sennosides-docusate Tablet 1 TAB PO (09:03)
[2019-12-07] MEDS: benzonatate 100 mg Capsule PO ×3 (09:03→21:58)
[2019-12-07] MEDS: aspirin 81 mg EC Tablet PO (09:03)
[2019-12-07] MEDS: ascorbic acid 500 mg Tablet PO (09:03)
[2019-12-07] MEDS: zinc gluconate 50 mg Tablet PO (09:03)
[2019-12-07] MEDS: atorvastatin 40 mg Tablet PO (09:04)
[2019-12-07] MEDS: predniSONE 20 mg Tablet 40 MG PO (09:04)
[2019-12-07] MEDS: apixaban 5 mg Tablet PO ×2 (09:04→17:03)
[2019-12-07] MEDS: FUROsemide 40 mg Tablet PO (09:04)
[2019-12-07] MEDS: isosorbide mononitrate ER 30 mg Tablet PO ×2 (09:07→17:03)
[2019-12-07] MEDS: sodium chloride 1 gm Tablet PO ×4 (09:07→21:58)
[2019-12-07] MEDS: ranolazine (12HR) 500 mg Tablet 1000 MG PO ×2 (09:08→17:02)
[2019-12-07] MEDS: polyethylene glycol 3350 Pkt 17 gm PO (09:08)
--- NOTE | 2019-12-07 11:03 | PC.RESP ---
Walked patient per verbal request of Dr. Valencia. Patient walked to restroom and back. Oxygen saturations at rest were 90% on 6lpm. Saturations dropped t0 75% on 6lpm. When patient got back to bed sats recovered to 90% after working on incentive spirometer and resting for a few minutes.
[2019-12-07 11:41] LABS: Glucose Point of Care 220 mg/dL (70-110)
[2019-12-07] MEDS: dexamethasone 4 mg/mL INJ 6 MG IVP (12:06)
[2019-12-07] MEDS: FUROsemide 10 mg/mL SDV 4mL 20 MG IVP (12:07)
[2019-12-07 12:11] LABS: Basophils % 0.1 %; Eosinophils # 0.1 10^3/uL (0.0-0.8); Eosinophils % 1.4 %; Hematocrit 35.3 % (42.0-52.0); Hemoglobin 11.7 g/dL (11.7-16.6); Lymphocytes # 1.1 10^3/uL (0.8-4.8); Lymphocytes % 13.8 %; Mean Corpuscular HGB Conc 33.1 g/dL (30.0-36.0); Mean Corpuscular Hemoglobin 30.3 pg (28.0-34.0); Mean Corpuscular Volume 91.5 fL (80-94); Mean Platelet Volume 9.5 fL (7.4-10.4); Monocytes # 0.6 10^3/uL (0.2-0.9); Monocytes % 7.2 %; Neutrophils # 6.18 10^3/uL (1.8-7.7); Neutrophils % 76.6 %; Nucleated Red Blood Cells % 0 %; Platelet Count 315 10^3/cmm (130-400); Red Blood Count 3.86 10^6/uL (4.1-5.3); Red Cell Distribution Width 12.8 % (12.1-15.1); White Blood Count 8.1 10^3/uL (4.0-10.0)
--- NOTE | 2019-12-07 12:48 | DCPLANNER ---
Updated Pg 2 of IM with Pt's Spouse Kyleigh via the phone ([phone]) - she appreciates the call.
[2019-12-07 13:16] LABS: Alanine Aminotransferase 17 U/L (0-41); Albumin Level 2.6 g/dL (3.5-5.2); Alkaline Phosphatase 75 IU/L (40-130); Anion Gap 15.1 (5-19); Aspartate Amino Transferase 23 U/L (0-40); Blood Urea Nitrogen 26 mg/dL (8-23); Calcium 8.2 mg/dL (8.5-10.5); Carbon Dioxide 23 mmol/L (22-29); Chloride 96 mmol/L (98-107); Globulin 2.8 g/dL (1.3-4.6); Glucose 226 mg/dL (65-115); Osmolality Calculated 282 mOsm/kg (285-295); Potassium 4.1 mmol/L (3.5-5.1); Sodium 130 mmol/L (136-145); Total Bilirubin 0.4 mg/dL (0.15-1.2); Total Protein 5.4 g/dL (6.6-8.7)
[2019-12-07 13:52] LABS: ABG PCO2 31.4 mmHg (35-45); Alveolar-Arterial Oxygen Gradi 28.2 mmHg (5-10); Arterial Blood Gas Hematocrit 40.7 % (42-52); Base Excess ABG 1.7 mmol/L (-2.0-2.0); Blood Gas Operator Identificat AMH; Blood Gas Sample Type Arterial; HCO3 ABG 24.3 mmol/L (22-26); HGB O2 Sat 88.8 % (95-100); Ionized Calcium Level - ABG 1.1 mmol/L (1.1-1.4); Methemoglobin 0.7 % (0.4-1.5); Oxygen Device NC; Oxygen Saturation ABG 90.3; PO2 ABG 55.5 mmHg (80.0-100.0); Potassium Level - ABG 3.8 mmol/L (3.5-5.0); Total Hemoglobin 13.3 g/dL (14-18)
--- NOTE | 2019-12-07 14:23 | PC.NURSE ---
Spoke to patient's at this time. She stated patient's estranged daughter, Verito, has called hospital and gotten information about patient's healthcare and plan of stay without the patient's permission. Verified with patient if daughter, Verito, was allowed to be given any information about patient's stay here at the hospital and he stated no. Patient's given information to contact warehouse shipping clerk.
--- NOTE | 2019-12-07 14:34 | PC.NURSE ---
After reassuring the patient's multiple times that this nurse or any other nurse on the unit today has not spoken with Verito, the patient's daughter, the spoke to the nursing supervisor wire rope fabrication. The patient's passcode to receive any information is [id number].
--- NOTE | 2019-12-07 15:39 | PM.PN ---
Subjective Subjective: Interval history: No acute events overnight. Patient has had comfortable night. He states his energy levels are appropriate. Appetite is still on the lower side. He is saturating more than 90% on 5 L nasal cannula. On exertion he still dropping to mid 80s requiring oxygen supplementation at 10 L. We discussed in detail regarding need of incentive spirometry, chest physical therapy with Acapella and semiprone position when resting in bed. Patient states understanding and is able to verbalize back. Vitals and labs and input output noted. Medications: Reviewed: Yes Vitals/I&O/Wt Last Vital Signs Temp 98.8 F 12/07/19 12:00 Pulse 76 12/07/19 15:00 Resp 15 12/07/19 15:00 BP 131/80 12/07/19 15:00 Pulse Ox 94 12/07/19 15:00 12/07/19 12/07/19 12/07/19 06:59 14:59 22:59 Intake Total 349 / 1218 360 / 360 Output Total 400 / 2220 625 / 625 375 / 1000 Balance -51 / -1002 -265 / -265 -375 / -640 Weight last 48 hrs Weight 83.007 kg Weight 83.007 kg Physical Exam Narrative: EXAM NARRATIVE: General: No acute distress, AO x3 HEENT: PERRLA, pupils bilaterally equal and reactive Chest: Normal vesicular breath sounds, no added sounds, equal good air entry bilaterally CVS: S1-S2 regular, no murmurs, no tachycardia, no gallops, no rubs Abdomen: Soft, nontender, no organomegaly, bowel sounds present Neuro: No focal deficits, no facial deformity, AO x3, power 5/5 in all limbs Ext: B/l leg edema 1+ Data : 12/07/19 04:00 12/07/19 12:36 Micro: Microbiology 12/05/19 17:52 Gram Stain - Final Sputum - Expectorated Sputum Sputum Culture - Preliminary A&P Assessment and plan (1) ARDS (adult respiratory distress syndrome): Status: Acute (2) Pneumonia due to COVID-19 virus: Symptomatically he is doing well. He is eating well. Energy levels are good. Trying to get up and walk. Still requiring up to 2 to 3 L to maintain saturation over 90% at rest but while ambulation goes up to 9 L to maintain saturation over 90% . Patient has finished 5-day course of Remdesevir. Patient's inflammatory markers are again trending up. He is requiring more oxygen now. We will switch back from prednisone to IV Decadron 6 mg daily. CTA done yesterday negative for any pulmonary embolism but consistent with moderate to severe COVID pneumonia. We will repeat ABG. Patient has remained afebrile, procalcitonin is negative, no leukocytosis. Chances of bacterial infection on the lower side. Continue with Eliquis 5 mg twice daily. We will try to keep patient as negative as possible. Overall patient is now -120 cc since admission. 1 L negative since yesterday. proBNP trending down. Continue with home dose of Lasix 40 mg oral daily. Will give extra IV Lasix 20 mg stat. Continue levofloxacin. Day 3/5 of treatment. Start patient on Tessalon Perles, Advair, Spiriva. Incentive spirometry, flutter valve. Start patient on vitamin C, zinc. Strict input output charting, daily weights. Fluid restriction up to 1500 cc. Proning and semi-proning as discussed in detail. Discussed with his . She states that department health recommended that they be in isolation until at least December 14. Discussed with her to watch out for any concerning symptoms even if he ended up returning home with improvement sometime next week, to bring him back in ER in case there is any signs of increased work of breathing, tachypnea, cyanosis, or other red flags. She verbalized understanding that patients may sometimes worsen even after initially improving. Status: Acute (3) Hyponatremia: 130 again today. Most likely because of diuresis. Continue oral sodium tablets. Most likely this will resolve once pulmonary condition is resolved as well. Most likely patient would require to follow-up as an outpatient with a BMP in 2 weeks. Check sodium levels daily for now. Status: Acute (4) Generalized weakness: Multifactorial. Most likely b/c of COVID along with hyponatremia. This is much better. Had extreme weakness on Thursday. This has resolved. Still a little bit unstable will try to walk, but he has been trying to get out more. Trying to get up walk around the room a little bit. Status: Acute (5) Diabetes: Continue insulin sliding scale. Detemir. Escalate depending on blood glucose. Status: Acute Qualifiers: Diabetes mellitus type: type 2 Diabetes mellitus long-term insulin use: without long-term use Diabetes mellitus complication status: without complication Qualified Code(s): E11.9 - Type 2 diabetes mellitus without complications (6) Peripheral neuropathy: Status: Acute Additional A&P Information # MARGARITO most likely secondary to dehydration (resolved). Monitor renal function. Hold nephrotoxic agent. Continue holding losartan. #History of coronary artery disease status post CABG x4: Currently not complaining of any chest pain. EKG is normal. Monitor for any change in symptoms. We will restart him on home medication of aspirin, statin, Ranexa, Imdur but at lower dose of 30 mg twice daily. Monitor for blood pressures and chest pain. Discussed in detail with both patient and patient's regarding his health. All the questions were answered. Also discussed about CODE STATUS. Patient states he would like to be full code. CODE STATUS change in the system. Attestations Medical Necessity Statement*: Acute hypoxia, COVID-19 pneumonia Time Spent in Patient Care: Greater than 35 minutes (>than 50% of time spent in counselling and/or direct pt care on unit). Coding Level of Care Code Acute Inspector [employer] for [facility] Fwd Diagnoses ARDS (adult respiratory distress syndrome) J80 Pneumonia due to COVID-19 virus U07.1; J12.89 Hyponatremia E87.1 Generalized weakness R53.1 Diabetes E11.9 Diabetes mellitus type: type 2 Diabetes mellitus long-term insulin use: without machine long goods helper use Diabetes mellitus complication status: without complication Peripheral neuropathy G62.9
[2019-12-07 15:47] LABS: Glucose Point of Care 153 mg/dL (70-110)
[2019-12-07 20:14] LABS: Glucose Point of Care 256 mg/dL (70-110)
[2019-12-07] MEDS: terazosin 5 mg Capsule PO (21:58)
[2019-12-07 22:10] LABS: Glucose Point of Care 198 mg/dL (70-110)
[2019-12-08] VITALS (21 sets, daily range): BP systolic 94–141; BP diastolic 42–81; PULSE 60–88; RESP 4–23; TEMP 36.6–37.1; O2SAT 88–96
[2019-12-08] MEDS: levoFLOXacin 750 mg Tablet PO (05:16)
[2019-12-08 05:18] LABS: Blood Gas Sample Site Brachial, right; Blood Gas Sample Type Arterial
[2019-12-08 05:41] LABS: Basophils % 0.1 %; Eosinophils % 0.1 %; Hematocrit 35.9 % (42.0-52.0); Hemoglobin 11.8 g/dL (11.7-16.6); Lymphocytes # 0.9 10^3/uL (0.8-4.8); Lymphocytes % 10.1 %; Mean Corpuscular HGB Conc 32.9 g/dL (30.0-36.0); Mean Corpuscular Hemoglobin 30.2 pg (28.0-34.0); Mean Corpuscular Volume 91.8 fL (80-94); Mean Platelet Volume 8.7 fL (7.4-10.4); Monocytes # 0.5 10^3/uL (0.2-0.9); Monocytes % 5.1 %; Neutrophils # 7.73 10^3/uL (1.8-7.7); Neutrophils % 83.6 %; Nucleated Red Blood Cells % 0 %; Platelet Count 320 10^3/cmm (130-400); Red Blood Count 3.91 10^6/uL (4.1-5.3); Red Cell Distribution Width 12.4 % (12.1-15.1); White Blood Count 9.2 10^3/uL (4.0-10.0)
--- NOTE | 2019-12-08 06:00 | XR_ITS ---
WS: [id number] Portable AP upright chest, 12/08/2019 Clinical Data: covid Comparison: Portable chest, 12/05/2019. Findings: Bilateral opacities are present which probably represent pneumonia. The opacity in the righ t upper lobe overlying the minor fissure has increased slightly. Left lung remains the same. The hear t is slightly enlarged. The aortic arch and descending aorta show tortuosity. There are midline howard otomy sutures and mediastinal clips from cardiac surgery. There is an orthopedic anchor in the right humeral head. Monitor leads are on the chest wall. XR/XR chest 1V portable [id number] Impression: 1. Bilateral opacities which may represent pneumonia with an increase in opacit y in the right upper lobe. 2. Cardiomegaly and atherosclerosis.
--- NOTE | 2019-12-08 06:01 | PC.NURSE ---
Shift Events: Patient is now on 7LO2. Oxygen saturations drop with any exertion and takes him time to recover. Slept well this shift, although he did ask for a sleeping pill. Restoril was ordered but not given. New IV placed to the left upper arm. No c/o pain. All other VSS.
[2019-12-08 06:07] LABS: Fibrinogen 616 mg/dL (174-498)
[2019-12-08 06:10] LABS: D Dimer 1.34 ug/mIFEU (0-0.59)
[2019-12-08 06:12] LABS: ABG PCO2 36.2 mmHg (35-45); ABG PH Result 7.46 (7.35-7.45); Arterial Blood Gas Hematocrit 34.5 % (42-52); Carboxyhemoglobin 1.2 %THgb (0.4-20.1); HCO3 ABG 25.7 mmol/L (22-26); HGB O2 Sat 94.1 % (95-100); Ionized Calcium Level - ABG 1.2 mmol/L (1.1-1.4); Methemoglobin 0.9 % (0.4-1.5); Oxygen Saturation ABG 96.1; PO2 ABG 71.2 mmHg (80.0-100.0); Potassium Level - ABG 3.6 mmol/L (3.5-5.0); Total Hemoglobin 11.3 g/dL (14-18)
[2019-12-08 06:12] LABS: Creatine Phosphokinase 38 U/L (39-308)
[2019-12-08 06:13] LABS: Alanine Aminotransferase 20 U/L (0-41); Albumin Level 2.8 g/dL (3.5-5.2); Alkaline Phosphatase 69 IU/L (40-130); Anion Gap 15.3 (5-19); Aspartate Amino Transferase 22 U/L (0-40); Blood Urea Nitrogen 32 mg/dL (8-23); Calcium 8.3 mg/dL (8.5-10.5); Carbon Dioxide 26 mmol/L (22-29); Chloride 98 mmol/L (98-107); Globulin 2.9 g/dL (1.3-4.6); Glucose 145 mg/dL (65-115); Osmolality Calculated 289 mOsm/kg (285-295); Potassium 4.3 mmol/L (3.5-5.1); Sodium 135 mmol/L (136-145); Total Bilirubin 0.4 mg/dL (0.15-1.2); Total Protein 5.7 g/dL (6.6-8.7)
[2019-12-08 06:14] LABS: Alveolar-Arterial Oxygen Gradi 17.4 mmHg (5-10); Oxygen Device VENT
[2019-12-08 06:15] LABS: C Reactive Protein 54.1 mg/L (0.0-4.9); Ferritin 538 ng/mL (30-400); Lactate Dehydrogenase 429 U/L (135-225); NT Pro B Type Natriuretic Pept 681 pg/mL (0-450)
[2019-12-08 06:30] LABS: Glucose Point of Care 133 mg/dL (70-110)
[2019-12-08] MEDS: atorvastatin 40 mg Tablet PO (08:01)
[2019-12-08] MEDS: ascorbic acid 500 mg Tablet PO (08:01)
[2019-12-08] MEDS: apixaban 5 mg Tablet PO ×2 (08:01→17:00)
[2019-12-08] MEDS: aspirin 81 mg EC Tablet PO (08:01)
[2019-12-08] MEDS: FUROsemide 40 mg Tablet PO (08:01)
[2019-12-08] MEDS: sennosides-docusate Tablet 1 TAB PO (08:01)
[2019-12-08] MEDS: ranolazine (12HR) 500 mg Tablet 1000 MG PO ×2 (08:02→17:01)
[2019-12-08] MEDS: polyethylene glycol 3350 Pkt 17 gm PO (08:02)
[2019-12-08] MEDS: zinc gluconate 50 mg Tablet PO (08:02)
[2019-12-08] MEDS: sodium chloride 1 gm Tablet PO ×4 (08:02→21:53)
[2019-12-08] MEDS: isosorbide mononitrate ER 30 mg Tablet PO ×2 (08:02→17:01)
[2019-12-08] MEDS: benzonatate 100 mg Capsule PO ×3 (08:02→21:52)
--- NOTE | 2019-12-08 09:56 | PC.RESP ---
Patient prone and sats 87%. Gave inhalers and patient worked on incentive spirometer and Acapella. Sats still 88%. Increased flow to 9lpm. Will continue to monitor.
[2019-12-08 11:14] LABS: Glucose Point of Care 187 mg/dL (70-110)
[2019-12-08 12:00] LABS: Procalcitonin 0.05 ng/mL (0-0.5)
[2019-12-08] MEDS: piperacillin-tazobactam 3.375 GM in sodium chloride 0.9% (plus) 50 ML IV ×2 (12:42→21:52)
[2019-12-08] MEDS: dexamethasone 4 mg/mL INJ 6 MG IVP (12:42)
--- NOTE | 2019-12-08 14:29 | PM.PN ---
Subjective Subjective: Interval history: No acute events overnight. Patient is requiring more oxygen today morning as compared to yesterday. His oxygen requirement has been going up regularly for last 2 days. At present he is on 6 L saturating 93%. During my examination he is prone positioning. He states his energy levels are good. His appetite is back. Denies having nausea, vomiting, headache, dizziness. Medications: Reviewed: Yes Vitals/I&O/Wt Last Vital Signs Temp 98.8 F 12/08/19 11:00 Pulse 74 12/08/19 13:00 Resp 17 12/08/19 13:00 BP 99/49 12/08/19 13:00 Pulse Ox 90 12/08/19 13:00 12/07/19 12/08/19 12/08/19 22:59 06:59 14:59 Intake Total 720 / 1080 40 / 1120 600 / 600 Output Total 755 / 1380 150 / 150 Balance -35 / -300 40 / -260 450 / 450 Weight last 48 hrs Weight 81.238 kg Weight 83.007 kg Physical Exam Narrative: EXAM NARRATIVE: General: No acute distress, AO x3 HEENT: PERRLA, pupils bilaterally equal and reactive Chest: Normal vesicular breath sounds, no added sounds, equal good air entry bilaterally CVS: S1-S2 regular, no murmurs, no tachycardia, no gallops, no rubs Abdomen: Soft, nontender, no organomegaly, bowel sounds present Neuro: No focal deficits, no facial deformity, AO x3, power 5/5 in all limbs Ext: B/l leg edema 1+ Data : 12/08/19 04:20 12/08/19 04:20 Other Labs: Fibrinogen 616 from 557 D-dimer 1.34 from 1.38 Ferritin 538 from 547 LDH 429 from 505 CPK 38 from 46 CRP 54.1 from 67.3 proBNP 631 from 478 Micro: Microbiology 12/05/19 17:52 Gram Stain - Final Sputum - Expectorated Sputum Sputum Culture - Final A&P Assessment and plan (1) ARDS (adult respiratory distress syndrome): Hypoxia getting worse. For last 2 days patient's oxygen requirements are going up again. Cannot rule out superadded infection over COVID-19 viral pneumonia. We will get sputum culture, MRSA swab. We will broaden coverage with Zosyn and vancomycin both renally dosed. Stop Levaquin. Steroids were changed back to Decadron yesterday. Urine Legionella, bacterial antigen was negative. Sputum culture results still awaited. Blood cultures have remained negative. Patient has remained afebrile. CTA PE was negative for any pulmonary embolism. Check procalcitonin. 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 Concerned that with steroids if latent TB got activated. Will do sputum AFB culture. We will consult Dr. Vo for further recommendations. Status: Acute (2) Pneumonia due to COVID-19 virus: Symptomatically he is doing well. He is eating well. Energy levels are good. Trying to get up and walk. Still requiring up to 2 to 3 L to maintain saturation over 90% at rest but while ambulation goes up to 9 L to maintain saturation over 90% . Patient has finished 5-day course of Remdesevir. Patient inflammatory markers have stabilized again now. Continue with Decadron 6 mg IV daily. CTA done yesterday negative for any pulmonary embolism but consistent with moderate to severe COVID pneumonia. Continue with Eliquis 5 mg twice daily. We will try to keep patient as negative as possible. Patient's intake and output is almost equal right now. Lasix 40 mg IV daily. Continue with Tessalon Perles, Advair, Spiriva. Incentive spirometry, flutter valve. Continue with vitamin C, zinc. Strict input output charting, daily weights. Fluid restriction up to 1500 cc. Proning and semi-proning as discussed in detail. Discussed with his . She states that department health recommended that they be in isolation until at least December 14. Discussed with her to watch out for any concerning symptoms even if he ended up returning home with improvement sometime next week, to bring him back in ER in case there is any signs of increased work of breathing, tachypnea, cyanosis, or other red flags. She verbalized understanding that patients may sometimes worsen even after initially improving. Status: Acute (3) Hyponatremia: Resolved. Continue oral sodium tablets. Most likely this will resolve once pulmonary condition is resolved as well. Most likely patient would require to follow-up as an outpatient with a BMP in 2 weeks. Check sodium levels daily for now. Status: Acute (4) Generalized weakness: Resolving. Multifactorial. Most likely b/c of COVID along with hyponatremia. This is much better. Had extreme weakness on Thursday. This has resolved. Still a little bit unstable will try to walk, but he has been trying to get out more. Trying to get up walk around the room a little bit. Status: Acute (5) Diabetes: Continue insulin sliding scale. Detemir. Escalate depending on blood glucose. Status: Acute Qualifiers: Diabetes mellitus type: type 2 Diabetes mellitus detention insulin use: without detention use Diabetes mellitus complication status: without complication Qualified Code(s): E11.9 - Type 2 diabetes mellitus without complications (6) Peripheral neuropathy: Status: Acute Additional A&P Information # MARGARITO most likely secondary to dehydration (resolved). Monitor renal function. Hold nephrotoxic agent. Continue holding losartan. #History of coronary artery disease status post CABG x4: Currently not complaining of any chest pain. EKG is normal. Monitor for any change in symptoms. We will restart him on home medication of aspirin, statin, Ranexa, Imdur but at lower dose of 30 mg twice daily. Monitor for blood pressures and chest pain. History of QuantiFERON-TB gold positive recently. Discussed in detail with both patient and patient's regarding his health. All the questions were answered. Also discussed about CODE STATUS. Patient states he would like to be full code. CODE STATUS change in the system. Full code. Carb consistent diet. Protonix for PUD prophylaxis Discharge planning: Given the fact that patient is requiring high oxygen supplementation at present if patient continues to do the same way and oxygen requirement stabilizes patient would most likely require LTAC for further pulmonary evaluation. Attestations Medical Necessity Statement*: ARDS, severe hypoxia, COVID-19 pneumonia Time Spent in Patient Care: Greater than 35 minutes (>than 50% of time spent in counselling and/or direct pt care on unit). Coding Level of Care Code Acute Deputy Register Of [employer] for [facility] F[facility] Diagnoses ARDS (adult respiratory distress syndrome) J80 Pneumonia due to COVID-19 virus U07.1; J12.89 Hyponatremia E87.1 Generalized weakness R53.1 Diabetes E11.9 Diabetes mellitus type: type 2 Diabetes mellitus director of labor relations insulin use: without director of labor relations use Diabetes mellitus complication status: without complication Peripheral neuropathy G62.9
[2019-12-08] MEDS: vancomycin 1,000 MG in sodium chloride 0.9% 250 ML 250 MG IV (15:06)
[2019-12-08] MEDS: FUROsemide 10 mg/mL SDV 4mL 40 MG IVP (15:07)
[2019-12-08 16:04] LABS: Glucose Point of Care 124 mg/dL (70-110)
--- NOTE | 2019-12-08 17:56 | PM.CONSULT ---
Providers/Reason For Consult Consulting Physican/Specialty*: Dr. Holguin Datar/Pulm-CC Reason for Consult*: Worsening Hypoxia in COVID-19 Patient Requesting Physcian: Zaki Davis MD Attending Physician: Zaki Davis MD Primary Care Provider: Latoya Thao MD History of Present Illness History of Present Illness Tam Louise is a 84 year old male diabetes, hypertension, coronary disease status post CABG x4, lumbar spinal stenosis, peripheral neuropathy admitted to vital ICU for COVID-19 positive pneumonia requiring oxygen supplementation. On 11/27 patient came to the ED for generalized weakness, fatigue without fever, dysuria, vomiting, shortness of breath, chest pain and history of multiple falls. called EMS to take him to the ED for further evaluation. Denied any seizure-like activity, syncope, palpitations. Work-up in ER revealed sinus bradycardia, hyponatremia, COVID -19 positive. During second day of his admission his COVID-19 test came positive and he was transferred to viral ICU. Received 5 days of severe exam currently on dexamethasone. Initially was requiring [address] chest on 12/06/2019 diffuse bilateral groundglass opacities consistent with severe COVID-19 pneumonia with no evidence of PE or aortic dissection. Over the course of last 2 days patient oxygen requirement went up to 7 L maintaining saturation 93 to 94% at rest. Chest x-ray today morning revealed right upper lobe infiltrate. 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 Review of Systems General: Reports: 10 or more systems reviewed and unremarkable except in HPI and below Meds/Allergies Home Medications and Allergies Home Medications Medication Instructions Recorded Confirmed Last Taken Type aspirin 81 mg tablet,delayed 81 mg PO DAILY 08/11/19 11/29/19 Unknown History release atorvastatin 40 mg tablet 40 mg PO DAILY 08/11/19 11/29/19 Unknown History clopidogrel 75 mg tablet 75 mg PO DAILY 08/11/19 11/29/19 Unknown History furosemide 40 mg tablet 40 mg PO DAILY 08/11/19 11/29/19 Unknown History isosorbide mononitrate 30 mg 60 mg PO BID tab 08/11/19 11/29/19 Unknown History tablet,extended release 24 hr nitroglycerin 0.4 mg sublingual 0.4 mg SUBLINGUAL Q5M PRN 08/11/19 11/29/19 Unknown History tablet spironolactone 25 mg tablet 25 mg PO DAILY 08/11/19 11/29/19 Unknown History terazosin 5 mg capsule 5 mg PO BEDTIME 08/11/19 11/29/19 Unknown History Colace 100 mg PO BID 11/28/19 11/29/19 Unknown History losartan 25 mg PO DAILY 11/28/19 11/29/19 Unknown History insulin detemir U-100 [Levemir 25 unit SUBCUT BID 11/29/19 11/29/19 Unknown History FlexTouch U-100 Insuln] ranolazine 1,000 mg PO BID 11/29/19 11/29/19 Unknown History Allergies Allergy/AdvReac Type Severity Reaction Status Date / Time No Known Allergies Allergy Verified 11/29/19 09:06 Current Medications Current Medications Generic Name Dose Route Start Last Admin Trade Name Freq PRN Reason Stop Dose Admin Acetaminophen 650 mg 11/29/19 22:12 12/01/19 20:10 Tylenol PO 650 mg Q4H PRN Administration MILD PAIN OR INCREASE TEMP Apixaban 5 mg 12/05/19 18:00 12/08/19 17:00 Eliquis PO 5 mg BID RICK Administration Ascorbic Acid 500 mg 12/05/19 12:00 12/08/19 08:01 Vitamin C PO 500 mg DAILY RCIK Administration Aspirin 81 mg 11/29/19 09:00 12/08/19 08:01 Aspirin Ec PO 81 mg DAILY RICK Administration Atorvastatin Calcium 40 mg 11/29/19 09:00 12/08/19 08:01 Lipitor PO 40 mg DAILY RICK Administration Benzonatate 100 mg 12/05/19 15:00 12/08/19 15:06 Tessalon Pearls PO 100 mg TID RICK Administration Dexamethasone 6 mg 12/07/19 11:45 12/08/19 12:42 Decadron IVP 6 mg Q24H RICK Administration Furosemide 40 mg 12/08/19 14:30 12/08/19 15:07 Lasix IVP 40 mg Q24H RICK Administration Piperacillin Sod/Tazobactam 50 mls @ 12.5 mls/hr 12/08/19 12:00 12/08/19 16:56 Sod 3.375 gm/ Sodium Chloride IV Infused Q8H RICK Infusion Protocol Vancomycin HCl 1,000 mg/ 250 mls @ 250 mls/hr 12/08/19 15:30 12/08/19 15:06 Sodium Chloride IV 250 mls/hr Q18H RICK Administration Protocol Insulin Aspart 0 unit 12/01/19 21:00 12/08/19 16:16 Novolog SUBCUT Not Given WM&BEDTIME RICK Protocol Insulin Detemir 20 unit 12/05/19 22:00 12/08/19 08:04 Levemir SUBCUT 20 unit 0800,2200 RICK Administration Isosorbide Mononitrate 30 mg 12/05/19 18:00 12/08/19 17:01 Imdur PO 30 mg BID RICK Administration Polyethylene Glycol 17 gm 12/03/19 09:00 12/08/19 08:02 Miralax PO 17 gm DAILY RICK Administration Ranolazine 1,000 mg 12/05/19 18:00 12/08/19 17:01 Ranexa PO 1,000 mg BID RICK Administration Fluticasone/Salmeterol 1 puff 12/05/19 20:00 12/08/19 09:52 Advair Diskus 250-50 INHALATION 1 puff BID.RESPIRATORY RICK Administration Senna/Docusate Sodium 1 tab 12/03/19 05:15 12/08/19 08:01 Senna-S PO 1 tab DAILY RICK Administration Sodium Chloride 1 gm 11/30/19 17:00 12/08/19 16:56 Salt Tab PO 1 gm QID RICK Administration Terazosin HCl 5 mg 12/07/19 21:00 12/07/19 21:58 Hytrin PO 5 mg BEDTIME RICK Administration Tiotropium [place] 18 mcg 12/06/19 08:00 12/08/19 09:52 Spiriva INHALATION 1 puff DAILY.RESPIRATORY RICK Administration Zinc Gluconate 50 mg 12/05/19 12:00 12/08/19 08:02 Zinc Gluconate PO 50 mg DAILY RICK Administration PFSH Acute PFSH: Medical History Diabetes Eustachian tube anomaly Hypertension Lumbar spinal stenosis Memory loss, short term Prostatism Surgical History H/O rotator cuff surgery History of cholecystectomy History of coronary artery bypass graft History of shoulder surgery Family History Other Diabetes Social History Smoking and tobacco status: never smoked Alcohol intake: never Household members: spouse Housing: House Vitals/I&O/Wt Last Vital Signs Temp 98.3 F 12/08/19 16:00 Pulse 88 12/08/19 17:00 Resp 22 H 12/08/19 17:00 BP 141/71 12/08/19 17:00 Pulse Ox 90 12/08/19 17:00 12/08/19 12/08/19 12/08/19 06:59 14:59 22:59 Intake Total 40 / 1120 600 / 600 530 / 1130 Output Total 150 / 150 325 / 475 Balance 40 / -260 450 / 450 205 / 655 Weight last 48 hrs Weight 179 lb 1.6 oz Weight 183 lb Physical Exam Narrative: EXAM NARRATIVE: General: Elderly male lying in bed not in acute respiratory distress HEENT: conj clear, EOMI, PERRL, mmm, Neck: supple, no meningismus Heme: no cervical LAP Pulmonary: CTAB, no wheezing, rhonchi, crackles Cardiovascular: rrr, nl s1s2, no mrg Abdomen: soft, nt, nd, no r/g, bs+ Extremities: pulses +, no edema, no c/c : no CVA tenderness Skin: intact, no rash MSK: no back or neck pain Neurologic: grossly intact Data Micro: Micro: Microbiology 12/05/19 17:52 Gram Stain - Final Sputum - Expector ated Sputum Sputum Culture - F inal Other Data: Other data: Reviewed Labs, imaging and other investigations A&P Additional A&P Information Assessment and plan: Day 11 since admission Tam Louise is a 84 year old male diabetes, hypertension, coronary disease status post CABG x4, lumbar spinal stenosis, peripheral neuropathy admitted to viral ICU for COVID-19 positive pneumonia requiring oxygen supplementation. #COVID-19 pneumonia with worsening hypoxia prompting increasing requirement of oxygen supplementation -patient oxygen requirement went up from 2L to 6 L last 2 days -On 6 L nasal cannula AB.4 6/36/71/20 5/96% saturation -CT angio 12/06/2019: Moderate to severe bilateral groundglass appearance suggestive of severe COVID-19 pneumonia with no evidence of pulmonary embolism -Chest x-ray today 12/08/2019: Bilateral opacities with an increase in opacity in right upper lobe -So far Gram stain send urine bacterial antigens and Legionella antigen negative -Completed 5 days of remedesivir to severe him currently on dexamethasone -Procalcitonin less than 0.05 unlikely bacterial infection; -Improving inflammatory markers -Cannot rule out possibility of reactivation of TB in view of recent positive QuantiFERON outside facility -Currently on Zosyn and vancomycin -Continue contact/droplet/airborne precautions -Recommend to send AFB stain and culture every 8 hours to rule out TB -Also send MRSA nasal swab -Already on Eliquis 5 mg twice daily for DVT/PE prophylaxis -BNP 600 and with history of CABG -try to keep negative fluid balance -At this point worsening hypoxia is related to COVID-19 pneumonia. AFB smears to rule out TB and repeat sputum cultures for bacterial pneumonia and MRSA nares and continue with current antibiotic regimen. Monitor respiratory status and saturation. -Continue incentive spirometry, flutter valve and Combivent inhalations; try to avoid nebulizations to prevent oral aerosolization -Repeat COVID-19 testing on day 14 to confirm negative Medical condition, clinical course, prognosis and management plan discussed in detail with the patient and he verbalized understanding and agreed with the plan of care. Recommendations conveyed to Dr. Scales hospitalist covering the patient. Consult Attestations Medical Necessity Statement: COVID-19 pneumonia with worsening hypoxia requiring O2 supplementation Critical Care Time: Critical Care Time (min): 45 Coding Level of Care Code New Pt Acute Product Development Scientist for [facility] [facility] Patient Type New Medical Decision Making High Complexity Time Spent (min) 45
[2019-12-08 20:28] LABS: Glucose Point of Care 140 mg/dL (70-110)
[2019-12-08] MEDS: terazosin 5 mg Capsule PO (21:53)
[2019-12-09] VITALS (23 sets, daily range): BP systolic 119–147; BP diastolic 55–82; PULSE 52–92; RESP 16–21; TEMP 36.5–36.9; O2SAT 87–97
[2019-12-09] MEDS: piperacillin-tazobactam 3.375 GM in sodium chloride 0.9% (plus) 50 ML IV ×3 (04:21→20:43)
[2019-12-09 04:47] LABS: ABG PCO2 37.9 mmHg (35-45); ABG PH Result 7.51 (7.35-7.45); Alveolar-Arterial Oxygen Gradi 27.8 mmHg (5-10); Arterial Blood Gas Hematocrit 36.3 % (42-52); Base Excess ABG 6.9 mmol/L (-2.0-2.0); Blood Gas Allen Test Pos; Blood Gas Sample Site Brachial, right; Blood Gas Sample Type Arterial; Carboxyhemoglobin 0.8 %THgb (0.4-20.1); HCO3 ABG 30.3 mmol/L (22-26); HGB O2 Sat 88.5 % (95-100); Ionized Calcium Level - ABG 1.1 mmol/L (1.1-1.4); Methemoglobin < 0.0 % (0.4-1.5); Oxygen Device NC; Oxygen Saturation ABG 88.6; PO2 ABG 55.4 mmHg (80.0-100.0); Potassium Level - ABG 3.9 mmol/L (3.5-5.0); Total Hemoglobin 11.8 g/dL (14-18)
[2019-12-09 06:34] LABS: Basophils % 0.1 %; Eosinophils % 0.1 %; Hematocrit 33.8 % (42.0-52.0); Hemoglobin 11.1 g/dL (11.7-16.6); Lymphocytes # 0.7 10^3/uL (0.8-4.8); Lymphocytes % 6.9 %; Mean Corpuscular HGB Conc 32.8 g/dL (30.0-36.0); Mean Corpuscular Hemoglobin 30.2 pg (28.0-34.0); Mean Corpuscular Volume 92.1 fL (80-94); Mean Platelet Volume 8.7 fL (7.4-10.4); Monocytes # 0.5 10^3/uL (0.2-0.9); Monocytes % 4.7 %; Neutrophils % 87.5 %; Nucleated Red Blood Cells % 0 %; Platelet Count 328 10^3/cmm (130-400); Red Blood Count 3.67 10^6/uL (4.1-5.3); Red Cell Distribution Width 12.5 % (12.1-15.1); White Blood Count 10.5 10^3/uL (4.0-10.0)
[2019-12-09 06:55] LABS: Glucose Point of Care 55 mg/dL (70-110)
[2019-12-09 07:19] LABS: Fibrinogen 482 mg/dL (174-498)
[2019-12-09 07:20] LABS: Alanine Aminotransferase 20 U/L (0-41); Albumin Level 2.7 g/dL (3.5-5.2); Alkaline Phosphatase 78 IU/L (40-130); Anion Gap 12.6 (5-19); Aspartate Amino Transferase 26 U/L (0-40); Blood Urea Nitrogen 35 mg/dL (8-23); Calcium 8.1 mg/dL (8.5-10.5); Carbon Dioxide 27 mmol/L (22-29); Chloride 99 mmol/L (98-107); Globulin 2.9 g/dL (1.3-4.6); Glucose 52 mg/dL (65-115); Osmolality Calculated 285 mOsm/kg (285-295); Potassium 3.6 mmol/L (3.5-5.1); Sodium 135 mmol/L (136-145); Total Bilirubin 0.4 mg/dL (0.15-1.2); Total Protein 5.6 g/dL (6.6-8.7)
[2019-12-09 07:25] LABS: D Dimer 1.38 ug/mIFEU (0-0.59)
[2019-12-09 07:28] LABS: C Reactive Protein 40.6 mg/L (0.0-4.9); Ferritin 519 ng/mL (30-400); NT Pro B Type Natriuretic Pept 388 pg/mL (0-450)
[2019-12-09 07:52] LABS: Glucose Point of Care 83 mg/dL (70-110)
[2019-12-09] MEDS: sennosides-docusate Tablet 1 TAB PO (09:02)
[2019-12-09] MEDS: zinc gluconate 50 mg Tablet PO (09:02)
[2019-12-09] MEDS: ascorbic acid 500 mg Tablet PO (09:02)
[2019-12-09] MEDS: apixaban 5 mg Tablet PO ×2 (09:02→17:13)
[2019-12-09] MEDS: atorvastatin 40 mg Tablet PO (09:02)
[2019-12-09] MEDS: aspirin 81 mg EC Tablet PO (09:02)
[2019-12-09] MEDS: benzonatate 100 mg Capsule PO ×3 (09:02→20:43)
[2019-12-09] MEDS: polyethylene glycol 3350 Pkt 17 gm PO (09:03)
[2019-12-09] MEDS: isosorbide mononitrate ER 30 mg Tablet PO ×2 (09:03→17:08)
[2019-12-09] MEDS: ranolazine (12HR) 500 mg Tablet 1000 MG PO ×2 (09:03→17:08)
[2019-12-09] MEDS: sodium chloride 1 gm Tablet PO ×4 (09:04→20:43)
[2019-12-09] MEDS: vancomycin 1,000 MG in sodium chloride 0.9% 250 ML 250 MG IV (09:04)
--- NOTE | 2019-12-09 10:39 | P.PN_ITS ---
Subjective Subjective: Interval history: No acute events overnight. Patient lying comfortably in bed and having his lunch. He is been walking around in the room. Denies of any nausea, vomiting, headache. He states his energy levels are good. Today morning on examination he is needing up to 8 L oxygen supplementation with nasal cannula to maintain his saturations. Labs and vitals noted. Medications: Reviewed: Yes Vitals/I&O/Wt Last Vital Signs Temp 97.7 F 12/09/19 04:46 Pulse 71 12/09/19 08:50 Resp 18 12/09/19 08:50 BP 126/55 12/09/19 04:44 Pulse Ox 91 12/09/19 08:50 12/08/19 12/09/19 12/09/19 22:59 06:59 14:59 Intake Total 780 / 1380 50 / 1430 50 / 50 Output Total 900 / 1050 375 / 1425 Balance -120 / 330 -325 / 5 50 / 50 Weight last 48 hrs Weight 79.832 kg Weight 81.238 kg Physical Exam Narrative: EXAM NARRATIVE: General: No acute distress, AO x3 HEENT: PERRLA, pupils bilaterally equal and reactive Chest: Normal vesicular breath sounds, no added sounds, equal good air entry bilaterally CVS: S1-S2 regular, no murmurs, no tachycardia, no gallops, no rubs Abdomen: Soft, nontender, no organomegaly, bowel sounds present Neuro: No focal deficits, no facial deformity, AO x3, power 5/5 in all limbs Ext: B/l leg edema 1+ Data : 12/09/19 05:30 12/09/19 05:30 Other Labs: D-dimer 1.38 from 1.34. ABG appreciated. Ferritin 519 from 538 CRP 40.6 from 54.1 proBNP 388 from 06/12/1980. Micro: Microbiology 12/08/19 16:30 MRSA Culture - Final Nose 12/05/19 17:52 Gram Stain - Final Sputum - Expectorated Sputum Sputum Culture - Final A&P Assessment and plan (1) ARDS (adult respiratory distress syndrome): Hypoxia getting worse. Cannot rule out superadded infection over COVID-19 viral pneumonia. MRSA swab negative, urine Legionella, bacterial antigen negative. Sputum culture still awaited. Stop vancomycin. Continue Zosyn. Steroids were changed back to Decadron yesterday. Blood cultures have remained negative. Patient has remained afebrile. CTA PE was negative for any pulmonary embolism. Check procalcitonin. 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 Concerned that with steroids if latent TB got activated. Will do sputum AFB culture x3 every 8 hours apart. I have been told 2 sputum samples have been taken. We will also check Aspergillus antigen though unlikely because patient was never immunocompromised. If patient spikes fever for more than 103 or if leukocytosis continues to worsen will start antifungal at that time. Patient does not have any history of fungal pneumonia in the past. Appreciate 's recommendations. Status: Acute (2) Pneumonia due to COVID-19 virus: Symptomatically he is doing well. He is eating well. Energy levels are good. Trying to get up and walk. Requiring up to 8 L to maintain saturation 90%. Patient has finished 5-day course of Remdesevir. Patient inflammatory markers have stabilized again now. Continue with Decadron 6 mg IV daily. CTA done negative for any pulmonary embolism but consistent with moderate to severe COVID pneumonia. Continue with Eliquis 5 mg twice daily. We will try to keep patient as negative as possible. Patient's intake and output is almost equal right now. Lasix 40 mg IV daily. Continue with Tessalon [place], Advair, Spiriva. Incentive spirometry, flutter valve. Continue with vitamin C, zinc. Strict input output charting, daily weights. Fluid restriction up to 1500 cc. Proning and semi-proning as discussed in detail. Status: Acute (3) Hyponatremia: Resolved. Continue oral sodium tablets. Most likely this will resolve once pulmonary condition is resolved as well. Most likely patient would require to follow-up as an outpatient with a BMP in 2 weeks. Check sodium levels daily for now. Status: Acute (4) Generalized weakness: Resolving. Multifactorial. Most likely b/c of COVID along with hyponatremia. This is much better. Had extreme weakness on Thursday. This has resolved. Still a little bit unstable will try to walk, but he has been trying to get out more. Trying to get up walk around the room a little bit. Status: Acute (5) Diabetes: Blood sugar is low on today morning's BMP. Stop home dose of detemir 16 units twice daily for now. Continue insulin sliding scale at mild to moderate dose before meals and at bedtime. Carb consistent diet. Status: Acute Qualifiers: Diabetes mellitus complication status: without complication Diabetes mellitus penitentiary insulin use: without penitentiary use Diabetes mellitus type: type 2 Qualified Code(s): E11.9 - Type 2 diabetes mellitus without complications (6) Peripheral neuropathy: Status: Acute Additional A&P Information MARGARITO most likely secondary to dehydration (resolved). Monitor renal function. Hold nephrotoxic agent. Continue holding losartan. History of coronary artery disease status post CABG x4: Currently not complainin g of any chest pain. EKG is normal. Monitor for any change in symptoms. We will restart him on home medication of aspirin, statin, Ranexa, Imdur but at lower dose of 30 mg twice daily. Monitor for blood pressures and chest pain. 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 Discussed in detail with both patient and patient's regarding his health. All the questions were answered. Also discussed about CODE STATUS. Patient states he would like to be full code. CODE STATUS change in the system. Full code. Carb consistent diet. Protonix for PUD prophylaxis Discharge planning: Given the fact that patient is requiring high oxygen supplementation at present if patient continues to do the same way and oxygen requirement stabilizes patient would most likely require LTAC for further pulmonary evaluation. Attestations Medical Necessity Statement*: ARDS, worsening hypoxia, COVID-19 Coding Level of Care Code Acute Airfield Engineer Officer for [facility] Fwd Diagnoses ARDS (adult respiratory distress syndrome) J80 Pneumonia due to COVID-19 virus U07.1; J12.89 Hyponatremia E87.1 Generalized weakness R53.1 Diabetes E11.9 Diabetes mellitus complication status: without complication Diabetes mellitus penitentiary insulin use: without terminal operator use Diabetes mellitus type: type 2 Peripheral neuropathy G62.9
[2019-12-09 11:32] LABS: Glucose Point of Care 181 mg/dL (70-110)
[2019-12-09] MEDS: dexamethasone 4 mg/mL INJ 6 MG IVP (11:44)
[2019-12-09] MEDS: FUROsemide 10 mg/mL SDV 4mL 40 MG IVP (15:30)
[2019-12-09 15:31] LABS: Glucose Point of Care 156 mg/dL (70-110)
--- NOTE | 2019-12-09 18:55 | PM.PN ---
Subjective Subjective: Interval history: No change in clinical status. Still requiring 6 to 8 L of nasal cannula. Not in acute respiratory distress. Medications: Reviewed: Yes Vitals/I&O/Wt Last Vital Signs Temp 98.4 F 12/09/19 15:00 Pulse 73 12/09/19 18:00 Resp 19 H 12/09/19 18:00 BP 128/71 12/09/19 17:00 Pulse Ox 93 12/09/19 18:00 12/09/19 12/09/19 12/09/19 06:59 14:59 22:59 Intake Total 50 / 1430 890 / 890 540 / 1430 Output Total 375 / 1425 350 / 350 725 / 1075 Balance -325 / 5 540 / 540 -185 / 355 Weight last 48 hrs Weight 176 lb Weight 179 lb 1.6 oz Physical Exam Narrative: EXAM NARRATIVE: General: Elderly male sitting in chair not in acute respiratory distress HEENT: conj clear, EOMI, PERRL, mmm, Neck: supple, no meningismus Heme: no cervical LAP Pulmonary: CTAB, no wheezing, rhonchi, crackles Cardiovascular: rrr, nl s1s2, no mrg Abdomen: soft, nt, nd, no r/g, bs+ Extremities: pulses +, no edema, no c/c : no CVA tenderness Skin: intact, no rash MSK: no back or neck pain Neurologic: grossly intact Data : 12/09/19 05:30 12/09/19 05:30 Micro: Microbiology 12/09/19 08:50 Gram Stain - Final Sputum - Expectorated Sputum 12/08/19 16:30 MRSA Culture - Final Nose 12/05/19 17:52 Gram Stain - Final Sputum - Expectorated Sputum Sputum Culture - Final A&P Additional A&P Information Assessment and plan: Day 12 since admission Tam Louise is a 84 year old male diabetes, hypertension, coronary disease status post CABG x4, lumbar spinal stenosis, peripheral neuropathy admitted to viral ICU for COVID-19 positive pneumonia requiring oxygen supplementation. #COVID-19 pneumonia with worsening hypoxia prompting increasing requirement of oxygen supplementation -patient oxygen requirement went up from 2L to 6 L last 2 days -On 6 L nasal cannula -requiring 8 L nasal cannula when trying to sit in chair -CT angio 12/06/2019: Moderate to severe bilateral groundglass appearance suggestive of severe COVID-19 pneumonia with no evidence of pulmonary embolism -Chest x-ray today 12/08/2019: Bilateral opacities with an increase in opacity in right upper lobe -So far Gram stain send urine bacterial antigens and Legionella antigen negative -Completed 5 days of remedesivir to severe him currently on dexamethasone -Procalcitonin less than 0.05 unlikely bacterial infection; -Improving inflammatory markers -Cannot rule out possibility of reactivation of TB in view of recent positive QuantiFERON outside facility -Currently on Zosyn and vancomycin -Continue contact/droplet/airborne precautions -Recommend to send AFB stain and culture every 8 hours to rule out TB & sputum cultures for micbrobiology/fungi -Also send MRSA nasal swab -Already on Eliquis 5 mg twice daily for DVT/PE prophylaxis -BNP 600 and with history of CABG -try to keep negative fluid balance -At this point worsening hypoxia is related to COVID-19 pneumonia. AFB smears to rule out TB and repeat sputum cultures for bacterial pneumonia and MRSA nares and continue with current antibiotic regimen. Monitor respiratory status and saturation. -Continue incentive spirometry, flutter valve and Combivent inhalations; try to avoid nebulizations to prevent oral aerosolization -Repeat COVID-19 testing on day 14 (December 12) to confirm negative - if pt.spikes fevers/leucocytosis worsens - recommended to cover antifungal as steroids can flare up any latent TB/endemic fungal infections. Medical condition, clinical course, prognosis and management plan discussed in detail with the patient & (on phone)and tbey verbalized understanding and agreed with the plan of care. Recommendations conveyed to Dr. Scales hospitalist covering the patient. 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
[2019-12-09] MEDS: terazosin 5 mg Capsule PO (20:43)
[2019-12-09 21:06] LABS: Glucose Point of Care 267 mg/dL (70-110)
[2019-12-10] VITALS (14 sets, daily range): BP systolic 125–174; BP diastolic 64–80; PULSE 59–98; RESP 15–26; TEMP 36.6–37.1; O2SAT 78–98
[2019-12-10 04:27] LABS: Basophils % 0.1 %; Eosinophils % 0.2 %; Hematocrit 33.4 % (42.0-52.0); Hemoglobin 11.2 g/dL (11.7-16.6); Lymphocytes # 0.7 10^3/uL (0.8-4.8); Lymphocytes % 7.1 %; Mean Corpuscular HGB Conc 33.5 g/dL (30.0-36.0); Mean Corpuscular Hemoglobin 30.7 pg (28.0-34.0); Mean Corpuscular Volume 91.5 fL (80-94); Mean Platelet Volume 8.7 fL (7.4-10.4); Monocytes # 0.6 10^3/uL (0.2-0.9); Monocytes % 5.8 %; Neutrophils % 86.2 %; Nucleated Red Blood Cells % 0 %; Platelet Count 311 10^3/cmm (130-400); Red Blood Count 3.65 10^6/uL (4.1-5.3); Red Cell Distribution Width 12.4 % (12.1-15.1); White Blood Count 10.2 10^3/uL (4.0-10.0)
[2019-12-10] MEDS: piperacillin-tazobactam 3.375 GM in sodium chloride 0.9% (plus) 50 ML IV ×3 (04:59→21:02)
[2019-12-10 05:01] LABS: C Reactive Protein 25.9 mg/L (0.0-4.9); Creatine Phosphokinase 107 U/L (39-308); Ferritin 463 ng/mL (30-400); Lactate Dehydrogenase 421 U/L (135-225)
[2019-12-10 05:02] LABS: Alanine Aminotransferase 19 U/L (0-41); Albumin Level 2.8 g/dL (3.5-5.2); Alkaline Phosphatase 74 IU/L (40-130); Anion Gap 11.5 (5-19); Aspartate Amino Transferase 25 U/L (0-40); Blood Urea Nitrogen 32 mg/dL (8-23); Calcium 7.8 mg/dL (8.5-10.5); Carbon Dioxide 27 mmol/L (22-29); Chloride 98 mmol/L (98-107); Globulin 2.2 g/dL (1.3-4.6); Glucose 231 mg/dL (65-115); Osmolality Calculated 288 mOsm/kg (285-295); Potassium 4.5 mmol/L (3.5-5.1); Sodium 132 mmol/L (136-145); Total Bilirubin 0.5 mg/dL (0.15-1.2)
[2019-12-10 05:44] LABS: Fibrinogen 433 mg/dL (174-498)
[2019-12-10 05:47] LABS: D Dimer 1.69 ug/mIFEU (0-0.59)
--- NOTE | 2019-12-10 06:00 | XRR_ITS ---
PROCEDURE INFORMATION: Exam: XR Chest, 1 View Exam date and time: 12/10/2019 6:53 AM Age: 84 years old Clinical indication: Shortness of breath; Additional info: Covid TECHNIQUE: Imaging protocol: XR of the chest Views: 1 view. COMPARISON: CR XR chest 1V portable [id number] 12/08/2019 5:25 AM FINDINGS: Lungs: Hypoinflation. Interstitial/airspace disease, with mild interval worsening in airspace disease. Pleural space: Small right pleural effusion. Heart/Mediastinum: Bypass surgery. No cardiomegaly. Bones/joints: Right rotator cuff repair. Degenerative change. XR/XR chest 1V portable [id number] IMPRESSION: Interstitial/airspace disease, with mild interval worsening in airspace disease.
[2019-12-10 08:16] LABS: Glucose Point of Care 195 mg/dL (70-110)
[2019-12-10] MEDS: atorvastatin 40 mg Tablet PO (08:40)
[2019-12-10] MEDS: benzonatate 100 mg Capsule PO ×3 (08:40→21:04)
[2019-12-10] MEDS: sennosides-docusate Tablet 1 TAB PO (08:40)
[2019-12-10] MEDS: ranolazine (12HR) 500 mg Tablet 1000 MG PO ×2 (08:40→17:06)
[2019-12-10] MEDS: zinc gluconate 50 mg Tablet PO (08:40)
[2019-12-10] MEDS: isosorbide mononitrate ER 30 mg Tablet PO ×2 (08:40→17:06)
[2019-12-10] MEDS: aspirin 81 mg EC Tablet PO (08:40)
[2019-12-10] MEDS: polyethylene glycol 3350 Pkt 17 gm PO (08:40)
[2019-12-10] MEDS: ascorbic acid 500 mg Tablet PO (08:40)
[2019-12-10] MEDS: sodium chloride 1 gm Tablet PO ×4 (08:40→21:05)
[2019-12-10] MEDS: apixaban 5 mg Tablet PO ×2 (08:40→17:05)
[2019-12-10 10:04] LABS: ABG PCO2 37.3 mmHg (35-45); ABG PH Result 7.47 (7.35-7.45); Alveolar-Arterial Oxygen Gradi 5.9 mmHg (5-10); Base Excess ABG 3.4 mmol/L (-2.0-2.0); Blood Gas Allen Test Pos; Blood Gas Operator Identificat MONRO; Blood Gas Sample Site Radial, left; Blood Gas Sample Type Arterial; Carboxyhemoglobin 0.8 %THgb (0.4-20.1); HCO3 ABG 27.1 mmol/L (22-26); HGB O2 Sat 89.6 % (95-100); Ionized Calcium Level - ABG 1.1 mmol/L (1.1-1.4); Methemoglobin 0.8 % (0.4-1.5); Oxygen Device NC; Oxygen Saturation ABG 91.1; PO2 ABG 59.2 mmHg (80.0-100.0); Potassium Level - ABG 4.3 mmol/L (3.5-5.0); Total Hemoglobin 11.7 g/dL (14-18)
[2019-12-10 11:48] LABS: Glucose Point of Care 316 mg/dL (70-110)
[2019-12-10] MEDS: dexamethasone 4 mg/mL INJ 6 MG IVP (12:36)
[2019-12-10] MEDS: FUROsemide 10 mg/mL SDV 4mL 40 MG IVP (12:38)
--- NOTE | 2019-12-10 13:54 | P.PN_ITS ---
Subjective Subjective: Interval history: No acute events overnight. Patient continues to have good energy levels. Able to talk to me in complete sentences. Denies any nausea, vomiting, headache. Working well with physical therapy, incentive spirometry, flutter valve. On examination lying in right semiprone position. Has had good breakfast today morning. Requiring 8 to 9 L of high flow oxygen oxygen supplementation to maintain saturation over 90%. Continues to require high amount of oxygen supplementation. ABG from today morning appreciated with pH of 7.47 with PCO2 of 37, PO2 of 59 on 9 L oxygen supplementation. Chest x-ray, vitals, hemodynamics appreciated. Medications: Reviewed: Yes Vitals/I&O/Wt Last Vital Signs Temp 98.1 F 12/10/19 04:00 Pulse 80 12/10/19 09:00 Resp 20 H 12/10/19 09:00 BP 125/64 12/10/19 09:00 Pulse Ox 90 12/10/19 09:00 12/09/19 12/10/19 12/10/19 22:59 06:59 14:59 Intake Total 540 / 1430 50 / 1480 1010 / 1010 Output Total 1125 / 1475 200 / 1675 300 / 300 Balance -585 / -45 -150 / -195 710 / 710 Weight last 48 hrs Weight 79.832 kg Weight 79.832 kg Physical Exam Narrative: EXAM NARRATIVE: General: No acute distress, AO x3 HEENT: PERRLA, pupils bilaterally equal and reactive Chest: Normal vesicular breath sounds, no added sounds, equal good air entry bilaterally CVS: S1-S2 regular, no murmurs, no tachycardia, no gallops, no rubs Abdomen: Soft, nontender, no organomegaly, bowel sounds present Neuro: No focal deficits, no facial deformity, AO x3, power 5/5 in all limbs Ext: B/l leg edema 1+ Data : 12/10/19 04:00 12/10/19 04:00 Micro: Microbiology 12/09/19 08:50 Gram Stain - Final Sputum - Expectorated Sputum Sputum Culture - Preliminary 12/08/19 16:30 MRSA Culture - Final Nose A&P Assessment and plan (1) ARDS (adult respiratory distress syndrome): Hypoxia getting worse. Cannot rule out superadded infection over COVID-19 viral pneumonia. MRSA swab negative, urine Legionella, bacterial antigen negative. Sputum culture still awaited. Continue Zosyn. Day 3 today. Steroids were changed back to Decadron yesterday. Check flu swab. Blood cultures have remained negative. Patient has remained afebrile. CTA PE was negative for any pulmonary embolism. 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 Concerned that with steroids if latent TB got activated. Will do sputum AFB culture x3 every 8 hours apart. I have been told 2 sputum samples have been taken. We will also check Aspergillus antigen though unlikely because patient was never immunocompromised. If patient spikes fever for more than 103 or if leukocytosis continues to worsen will start antifungal at that time. Patient does not have any history of fungal pneumonia in the past. Appreciate 's recommendations. Status: Acute (2) Pneumonia due to COVID-19 virus: Symptomatically he is doing well. He is eating well. Energy levels are good. Trying to get up and walk. Requiring up to 8-9 L to maintain saturation 90%. Patient has finished 5-day course of Remdesevir. Patient inflammatory markers have stabilized again now. Continue with Decadron 6 mg IV daily. CTA done negative for any pulmonary embolism but consistent with moderate to severe COVID pneumonia. Continue with Eliquis 5 mg twice daily. We will try to keep patient as negative as possible. Patient's intake and output is almost equal right now. Lasix 40 mg IV daily. Continue with Tessalon Perles, Advair, Spiriva. Incentive spirometry, flutter valve. Continue with vitamin C, zinc. Strict input output charting, daily weights. Fluid restriction up to 1500 cc. Proning and semi-proning as discussed in detail. Status: Acute (3) Hyponatremia: Resolved. Continue oral sodium tablets. Most likely this will resolve once pulmonary condition is resolved as well. Most likely patient would require to follow-up as an outpatient with a BMP in 2 weeks. Check sodium levels daily for now. Status: Acute (4) Generalized weakness: Resolving. Multifactorial. Most likely b/c of COVID along with hyponatremia. This is much better. Had extreme weakness on Thursday. This has resolved. Still a little bit unstable will try to walk, but he has been trying to get out more. Trying to get up walk around the room a little bit. Status: Acute (5) Diabetes: Takes 16 units twice daily of detemir at home. On that blood sugars are running low especially in the morning. After stopping detemir blood sugars running higher now. We will start at a lower dose of 5 units twice daily with first dose right now. Continue insulin sliding scale at mild to moderate dose before meals and at bedtime. Carb consistent diet. Status: Acute Qualifiers: Diabetes mellitus type: type 2 Diabetes mellitus technician terminal and repeater insulin use: without care home use Diabetes mellitus complication status: without complication Qualified Code(s): E11.9 - Type 2 diabetes mellitus without complications (6) Peripheral neuropathy: Status: Acute Additional A&P Information MARGARITO most likely secondary to dehydration (resolved). Monitor renal function. Hold nephrotoxic agent. Continue holding losartan. History of coronary artery disease status post CABG x4: Currently not complaining of any chest pain. EKG is normal. Monitor for any change in symptoms. We will restart him on home medication of aspirin, statin, Ranexa, Imdur but at lower dose of 30 mg twice daily. Monitor for blood pressures and chest pain. 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 Discussed in detail with both patient and patient's regarding his health. All the questions were answered. Also discussed about CODE STATUS. Patient states he would like to be full code. CODE STATUS change in the system. Full code. Carb consistent diet. Protonix for PUD prophylaxis Discharge planning: Given the fact that patient is requiring high oxygen supplementation at present if patient continues to do the same way and oxygen requirement stabilizes patient would most likely require LTAC for further pulmonary rehabilitation. Attestations Medical Necessity Statement*: Worsening hypoxia, ARDS, COVID-19 pneumonia Time Spent in Patient Care: Greater than 35 minutes (>than 50% of time spent in counselling and/or direct pt care on unit) . Coding Level of Care Code Acute Brokerage Purchase [employer] Clerk for [facility] Diagnoses ARDS (adult respiratory distress syndrome) J80 Pneumonia due to COVID-19 virus U07.1; J12.89 Hyponatremia E87.1 Generalized weakness R53.1 Diabetes E11.9 Diabetes mellitus type: type 2 Diabetes mellitus technician terminal and repeater insulin use: without technician terminal and repeater use Diabetes mellitus complication status: without complication Peripheral neuropathy G62.9
[2019-12-10 14:16] LABS: Quantiferon Nil 0.01 IU/mL; Quantiferon TB Gold NEGATIVE (NEGATIVE)
[2019-12-10 14:57] LABS: Influenza A by IFA Negative (Negative); Influenza B by IFA Negative (Negative)
[2019-12-10 16:52] LABS: Glucose Point of Care 242 mg/dL (70-110)
[2019-12-10 20:30] LABS: Glucose Point of Care 189 mg/dL (70-110)
[2019-12-10] MEDS: terazosin 5 mg Capsule PO (21:05)
[2019-12-10 23:41] LABS: Coronavirus Lab Test PTC Positive
[2019-12-11] VITALS (13 sets, daily range): BP systolic 105–162; BP diastolic 60–89; PULSE 57–94; RESP 6–24; TEMP 36.7–37.2; O2SAT 85–98
--- NOTE | 2019-12-11 02:41 | PC.NURSE ---
FLUID RESTRICTION Upon change of shift report, nurse reported to oncoming nurse that patient had 60 mL left of the 1500 mL fluid restriction that restarts at 0700. Patient requested water but was instructed he could only have small sips and was asked if water could be placed out of reach and he could call nurse when needing so restriction was not exceeded. Patient has been resting well since 0000. Patient has had no complaints of pain.
[2019-12-11] MEDS: piperacillin-tazobactam 3.375 GM in sodium chloride 0.9% (plus) 50 ML IV ×3 (03:30→20:06)
--- NOTE | 2019-12-11 04:17 | PC.NURSE ---
LABS/FR Nurse in room to draw morning labs via venipuncture. Patient requested sip of ice water. Patient has met fluid restriction until 0700. Urinal emptied and patient denies pain at this time.
--- NOTE | 2019-12-11 05:33 | PC.NURSE ---
Addendum entered by Josselin Joshi RN 12/11/19 06:23: 720 mL urine output this shift. Original Note: SHIFT SUMMARY Patient has had uneventful night and has rested well since approximately 0000. Patient alert and oriented x 4. 500 mL urine output this shift, with 1500 mL out over the last 24 hours. Patient has met fluid restriction of 1500 mL until 0700 this AM. Patient has used urinal to void independently. No complaints of pain. Patient has been laying on his right or left side and oxygen saturation has been between 93-96% on 8L high flow nasal cannula. Patient has been very pleasant this shift.
--- NOTE | 2019-12-11 06:13 | PC.NURSE ---
UP WITHOUT ASSISTANCE Patient found standing at side of bed to urinate with a decrease in oxygen to 82%. Patient education on fall risk status reiterated and patient asked to please call nurse with assistance to standing and then patient could be given privacy to void. Patient verbalized understanding of nurses concern for falls after multiple at home and verbalized that he would be sure to call next time he needed to use the urinal.
[2019-12-11 07:06] LABS: Creatine Phosphokinase 69 U/L (39-308); Ferritin 438 ng/mL (30-400); Lactate Dehydrogenase 411 U/L (135-225)
[2019-12-11 08:04] LABS: D Dimer 1.96 ug/mIFEU (0-0.59)
[2019-12-11 08:06] LABS: Glucose Point of Care 144 mg/dL (70-110)
[2019-12-11 08:07] LABS: Fibrinogen 454 mg/dL (174-498)
[2019-12-11] MEDS: isosorbide mononitrate ER 30 mg Tablet PO ×2 (08:43→17:20)
[2019-12-11] MEDS: sodium chloride 1 gm Tablet PO ×4 (08:44→20:06)
[2019-12-11] MEDS: ranolazine (12HR) 500 mg Tablet 1000 MG PO ×2 (08:44→17:20)
[2019-12-11] MEDS: aspirin 81 mg EC Tablet PO (08:44)
[2019-12-11] MEDS: benzonatate 100 mg Capsule PO ×3 (08:44→20:06)
[2019-12-11] MEDS: ascorbic acid 500 mg Tablet PO (08:44)
[2019-12-11] MEDS: apixaban 5 mg Tablet PO ×2 (08:44→17:22)
[2019-12-11] MEDS: atorvastatin 40 mg Tablet PO (08:44)
[2019-12-11] MEDS: sennosides-docusate Tablet 1 TAB PO (08:45)
[2019-12-11] MEDS: polyethylene glycol 3350 Pkt 17 gm PO (08:45)
[2019-12-11] MEDS: zinc gluconate 50 mg Tablet PO (08:45)
--- NOTE | 2019-12-11 09:49 | PC.SOCIAL ---
IMM Updated Updated pt's on Pg 2 IMM, via phone. No questions voiced. Signed, dated, & timed copy for chart.
[2019-12-11 11:51] LABS: Glucose Point of Care 267 mg/dL (70-110)
[2019-12-11] MEDS: dexamethasone 4 mg/mL INJ 6 MG IVP (12:04)
[2019-12-11 12:22] LABS: Basophils % 0.1 %; Eosinophils # 0.1 10^3/uL (0.0-0.8); Eosinophils % 0.5 %; Hematocrit 36.6 % (42.0-52.0); Lymphocytes # 1.2 10^3/uL (0.8-4.8); Lymphocytes % 7.7 %; Mean Corpuscular HGB Conc 32.8 g/dL (30.0-36.0); Mean Corpuscular Hemoglobin 30.5 pg (28.0-34.0); Mean Corpuscular Volume 92.9 fL (80-94); Mean Platelet Volume 8.9 fL (7.4-10.4); Monocytes # 0.7 10^3/uL (0.2-0.9); Monocytes % 4.3 %; Neutrophils # 13.18 10^3/uL (1.8-7.7); Neutrophils % 86.5 %; Nucleated Red Blood Cells % 0 %; Platelet Count 327 10^3/cmm (130-400); Red Blood Count 3.94 10^6/uL (4.1-5.3); Red Cell Distribution Width 12.3 % (12.1-15.1); White Blood Count 15.2 10^3/uL (4.0-10.0)
[2019-12-11 12:31] LABS: Alanine Aminotransferase 17 U/L (0-41); Albumin Level 2.7 g/dL (3.5-5.2); Alkaline Phosphatase 76 IU/L (40-130); Anion Gap 14.9 (5-19); Aspartate Amino Transferase 23 U/L (0-40); Blood Urea Nitrogen 33 mg/dL (8-23); Carbon Dioxide 26 mmol/L (22-29); Chloride 94 mmol/L (98-107); Globulin 2.9 g/dL (1.3-4.6); Glucose 278 mg/dL (65-115); Osmolality Calculated 289 mOsm/kg (285-295); Potassium 3.9 mmol/L (3.5-5.1); Sodium 131 mmol/L (136-145); Total Bilirubin 0.5 mg/dL (0.15-1.2); Total Protein 5.6 g/dL (6.6-8.7)
[2019-12-11] MEDS: FUROsemide 10 mg/mL SDV 4mL 40 MG IVP (14:32)
--- NOTE | 2019-12-11 15:09 | PM.PN ---
Subjective Subjective: Interval history: Required high oxygen supplementation to maintain saturation over 90%. Continues to have good energy levels and appropriate appetite. Continues to work well with incentive spirometry and flutter valve. Denies any chest pain, nausea, vomiting. Medications: Reviewed: Yes Vitals/I&O/Wt Last Vital Signs Temp 98.5 F 12/11/19 12:37 Pulse 87 12/11/19 13:56 Resp 22 H 12/11/19 13:56 BP 137/70 12/11/19 12:37 Pulse Ox 90 12/11/19 13:56 12/11/19 12/11/19 12/11/19 06:59 14:59 22:59 Intake Total 50 / 1590 520 / 520 Output Total 520 / 2370 300 / 300 Balance -470 / -780 220 / 220 Weight last 48 hrs Weight 80.24 kg Weight 79.832 kg Physical Exam Narrative: EXAM NARRATIVE: General: No acute distress, AO x3 HEENT: PERRLA, pupils bilaterally equal and reactive Chest: Normal vesicular breath sounds, no added sounds, equal good air entry bilaterally CVS: S1-S2 regular, no murmurs, no tachycardia, no gallops, no rubs Abdomen: Soft, nontender, no organomegaly, bowel sounds present Neuro: No focal deficits, no facial deformity, AO x3, power 5/5 in all limbs Ext: B/l leg edema 1+ Data : 12/11/19 10:50 12/11/19 10:50 Micro: Microbiology 12/10/19 12:56 Gram Stain - Final Sputum - Expectorated Sputum Sputum Culture - Preliminary 12/09/19 08:50 Gram Stain - Final Sputum - Expectorated Sputum Sputum Culture - Final A&P Assessment and plan (1) ARDS (adult respiratory distress syndrome): Hypoxia getting worse. Cannot rule out superadded infection over COVID-19 viral pneumonia. MRSA swab negative, urine Legionella, bacterial antigen negative. Sputum culture still awaited. Continue Zosyn. Day 3 today. Steroids were changed back to Decadron yesterday. Check flu swab. Blood cultures have remained negative. Patient has remained afebrile. CTA PE was negative for any pulmonary embolism. 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 Concerned that with steroids if latent TB got activated. AFB cultures have been sent out and are awaited. Aspergillus antigen has been sent out and results are awaited. Low chances are unlikely because patient was never immunocompromised. If patient spikes fever for more than 103 or if leukocytosis continues to worsen will start antifungal at that time. Patient does not have any history of fungal pneumonia in the past. Appreciate 's recommendations. Status: Acute (2) Pneumonia due to COVID-19 virus: Repeat COVID-19 PCR from December 08 came back positive. Symptomatically he is doing well. He is eating well. Energy levels are good. Trying to get up and walk. Still requiring up to 8-9 L to maintain saturation 90%. Patient has finished 5-day course of Remdesevir. Patient inflammatory markers have stabilized again now. Continue with Decadron 6 mg IV daily. CTA done negative for any pulmonary embolism but consistent with moderate to severe COVID pneumonia. Continue with Eliquis 5 mg twice daily. We will try to keep patient as negative as possible. Patient's intake and output is almost equal right now. Lasix 40 mg IV daily. Continue with Tessalon Perles, Advair, Spiriva. Incentive spirometry, flutter valve. Continue with vitamin C, zinc. Strict input output charting, daily weights. Fluid restriction up to 1500 cc. Proning and semi-proning as discussed in detail. Status: Acute (3) Hyponatremia: Resolved. Continue oral sodium tablets. Most likely this will resolve once pulmonary condition is resolved as well. Most likely patient would require to follow-up as an outpatient with a BMP in 2 weeks. Check sodium levels daily for now. Status: Acute (4) Generalized weakness: Resolving. Multifactorial. Most likely b/c of COVID along with hyponatremia. This is much better. Had extreme weakness on Thursday. This has resolved. Still a little bit unstable will try to walk, but he has been trying to get out more. Trying to get up walk around the room a little bit. Status: Acute (5) Diabetes: Takes 16 units twice daily of detemir at home. On that blood sugars are running low especially in the morning. Blood sugar is mildly elevated now. Will increase the detemir to 10 twice daily. Continue insulin sliding scale at mild to moderate dose before meals and at bedtime. Carb consistent diet. Status: Acute Qualifiers: Diabetes mellitus type: type 2 Diabetes mellitus assisted insulin use: without termite technician use Diabetes mellitus complication status: without complication Qualified Code(s): E11.9 - Type 2 diabetes mellitus without complications (6) Peripheral neuropathy: Status: Acute Additional A&P Information MARGARITO most likely secondary to dehydration (resolved). Monitor renal function. Hold nephrotoxic agent. Continue holding losartan. History of coronary artery disease status post CABG x4: Currently not complaining of any chest pain. EKG is normal. Monitor for any change in symptoms. We will restart him on home medication of aspirin, statin, Ranexa, Imdur but at lower dose of 30 mg twice daily. Monitor for blood pressures and chest pain. 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 Discussed in detail with both patient and patient's regarding his health. All the questions were answered. Also discussed about CODE STATUS. Patient states he would like to be full code. CODE STATUS change in the system. Full code. Carb consistent diet. Protonix for PUD prophylaxis Discharge planning: Given the fact that patient is requiring high oxygen supplementation at present if patient continues to do the same way and oxygen requirement stabilizes patient would most likely require LTAC for further pulmonary rehabilitation. Attestations Medical Necessity Statement*: Hypoxia because of COVID-19 pneumonia, Time Spent in Patient Care: Greater than 35 minutes (>than 50% of time spent in counselling and/or direct pt care on unit). Coding Level of Care Code Acute Director Funds Development for [facility] Diagnoses ARDS (adult respiratory distress syndrome) J80 Pneumonia due to COVID-19 virus U07.1; J12.89 Hyponatremia E87.1 Generalized weakness R53.1 Diabetes E11.9 Diabetes mellitus type: type 2 Diabetes mellitus assisted insulin use: without assisted use Diabetes mellitus complication status: without complication Peripheral neuropathy G62.9
[2019-12-11 17:09] LABS: Glucose Point of Care 215 mg/dL (70-110)
[2019-12-11] MEDS: terazosin 5 mg Capsule PO (20:06)
[2019-12-11 21:22] LABS: Glucose Point of Care 279 mg/dL (70-110)
[2019-12-11] MEDS: insulin glargine 100 units/1 mL 10 UNIT SUBCUT (21:29)
[2019-12-11 23:25] LABS: Vancomycin Trough < 4.0 ug/mL (10-15)
[2019-12-12] VITALS (10 sets, daily range): BP systolic 136–140; BP diastolic 69–83; PULSE 62–90; RESP 18–20; TEMP 36.7–36.9; O2SAT 90–94
[2019-12-12] MEDS: piperacillin-tazobactam 3.375 GM in sodium chloride 0.9% (plus) 50 ML IV ×3 (04:16→21:10)
[2019-12-12 05:15] LABS: Basophils % 0.1 %; Eosinophils % 0.2 %; Hematocrit 34.8 % (42.0-52.0); Hemoglobin 11.5 g/dL (11.7-16.6); Lymphocytes # 1.2 10^3/uL (0.8-4.8); Lymphocytes % 10.8 %; Mean Corpuscular Hemoglobin 30.5 pg (28.0-34.0); Mean Corpuscular Volume 92.3 fL (80-94); Monocytes # 0.5 10^3/uL (0.2-0.9); Monocytes % 4.4 %; Neutrophils # 9.22 10^3/uL (1.8-7.7); Neutrophils % 83.7 %; Nucleated Red Blood Cells % 0 %; Platelet Count 288 10^3/cmm (130-400); Red Blood Count 3.77 10^6/uL (4.1-5.3); Red Cell Distribution Width 12.2 % (12.1-15.1)
[2019-12-12 05:37] LABS: Fibrinogen 448 mg/dL (174-498)
[2019-12-12 05:40] LABS: D Dimer 2.25 ug/mIFEU (0-0.59)
[2019-12-12 05:46] LABS: Alanine Aminotransferase 15 U/L (0-41); Albumin Level 2.6 g/dL (3.5-5.2); Alkaline Phosphatase 73 IU/L (40-130); Anion Gap 14.1 (5-19); Aspartate Amino Transferase 19 U/L (0-40); Blood Urea Nitrogen 33 mg/dL (8-23); Calcium 8.2 mg/dL (8.5-10.5); Carbon Dioxide 26 mmol/L (22-29); Chloride 96 mmol/L (98-107); Glucose 138 mg/dL (65-115); Osmolality Calculated 283 mOsm/kg (285-295); Potassium 4.1 mmol/L (3.5-5.1); Sodium 132 mmol/L (136-145); Total Bilirubin 0.5 mg/dL (0.15-1.2); Total Protein 5.6 g/dL (6.6-8.7)
[2019-12-12 05:47] LABS: C Reactive Protein 22.7 mg/L (0.0-4.9); Creatine Phosphokinase 52 U/L (39-308); Ferritin 460 ng/mL (30-400); Lactate Dehydrogenase 417 U/L (135-225)
--- NOTE | 2019-12-12 06:00 | XR_ITS ---
WS: [id number] Portable AP supine chest, 12/12/2019 Clinical Data: covid Comparison: Portable chest, 12/10/2019. Findings: Bilateral patchy opacities remain unchanged. The heart is slightly enlarged. Midline sterno marina sutures and mediastinal clips have not changed. No nodules, masses or effusions are seen. XR/XR chest 1V portable [id number] Impression: 1. Bilateral interstitial airway disease unchanged. 2. Cardiomegaly and atherosclerosis.
[2019-12-12 06:15] LABS: Glucose Point of Care 155 mg/dL (70-110)
[2019-12-12] MEDS: insulin glargine 100 units/1 mL 10 UNIT SUBCUT ×2 (07:10→21:44)
[2019-12-12] MEDS: ranolazine (12HR) 500 mg Tablet 1000 MG PO ×2 (09:14→17:37)
[2019-12-12] MEDS: benzonatate 100 mg Capsule PO ×3 (09:14→21:10)
[2019-12-12] MEDS: apixaban 5 mg Tablet PO ×2 (09:14→16:16)
[2019-12-12] MEDS: sennosides-docusate Tablet 1 TAB PO (09:14)
[2019-12-12] MEDS: atorvastatin 40 mg Tablet PO (09:14)
[2019-12-12] MEDS: aspirin 81 mg EC Tablet PO (09:14)
[2019-12-12] MEDS: ascorbic acid 500 mg Tablet PO (09:14)
[2019-12-12] MEDS: isosorbide mononitrate ER 30 mg Tablet PO ×2 (09:15→16:19)
[2019-12-12] MEDS: polyethylene glycol 3350 Pkt 17 gm PO (09:15)
[2019-12-12] MEDS: zinc gluconate 50 mg Tablet PO (09:15)
[2019-12-12] MEDS: sodium chloride 1 gm Tablet PO ×4 (09:25→21:11)
[2019-12-12] MEDS: dexamethasone 4 mg/mL INJ 6 MG IVP (09:39)
[2019-12-12] MEDS: guaiFENesin-dextromethorphan UDC 10 mL 5 ML PO (11:28)
[2019-12-12] MEDS: FUROsemide 10 mg/mL SDV 4mL 40 MG IVP (11:33)
[2019-12-12 12:01] LABS: Glucose Point of Care 331 mg/dL (70-110)
--- NOTE | 2019-12-12 14:16 | PM.PN ---
Subjective Subjective: Interval history: Now requiring 10 L high flow nasal cannula, intermittently hypoxic, otherwise stable vital signs, decreasing inflammatory markers and leukocytosis, afebrile, remains on Zosyn and dexamethasone. Will order repeat COVID testing per pulmonology recommendations for tomorrow. Remains on isolation precautions. He is hard of hearing and requests that I speak with his . Reports that he had a good day today, sitting in chair by bedside, seems to be motivated to continue to use the flutter valve and incentive spirometry. Reports good appetite. Medications: Reviewed: Yes Medication Review Details: Active Medications Generic Name Dose Route Start Last Admin Trade Name Freq PRN Reason Stop Dose Admin Acetaminophen 650 mg 11/29/19 22:12 12/01/19 20:10 Tylenol PO 650 mg Q4H PRN Administration MILD PAIN OR INCR EASE TEMP Apixaban 5 mg 12/05/19 18:00 12/12/19 09:14 Eliquis PO 5 mg BID RICK Administration Ascorbic Acid 500 mg 12/05/19 12:00 12/12/19 09:14 Vitamin C PO 500 mg DAILY RICK Administration Aspirin 81 mg 11/29/19 09:00 12/12/19 09:14 Aspirin Ec PO 81 mg DAILY RICK Administration Atorvastatin Calci um 40 mg 11/29/19 09:00 12/12/19 09:14 Lipitor PO 40 mg DAILY RICK Administration Benzonatate 100 mg 12/05/19 15:00 12/12/19 11:34 Tessalon Pearls PO 100 mg TID RICK Administration Denture Adhesive 1 applic 12/10/19 07:58 Fixodent DENTAL PRN PRN denture adhesive Dexamethasone 6 mg 12/07/19 11:45 12/12/19 09:39 Decadron IVP 6 mg Q24H RICK Administration Dextrose 25 ml 11/29/19 01:30 D50w IVP ONCE PRN hypoglycemia prot ocol Protocol Dextrose 50 ml 11/29/19 01:30 D50w IVP PRN PRN hypoglycemia prot ocol Protocol Furosemide 40 mg 12/08/19 14:30 12/12/19 11:33 Lasix IVP 40 mg Q24H RICK Administration Glucagon 1 mg 11/29/19 01:30 Glucagen IM ONCE PRN Adult Acute Hypog lycemia Prot. Protocol Guaifenesin/Dextro methorphan 5 ml 11/30/19 08:58 12/12/19 11:28 Robitussin Dm Or al Liq PO 5 ml Q4H PRN Administration COUGH Dextrose 500 mls @ 100 mls /hr 11/29/19 01:30 D5w IV ONCE PRN Adult Acute Hypog lycemia Prot Protocol Piperacillin Sod/T azobactam 50 mls @ 12.5 mls /hr 12/08/19 12:00 12/12/19 11:32 Sod 3.375 gm/ So dium Chloride IV 12.5 mls/hr Q8H RICK Administration Protocol Insulin Aspart 0 unit 12/01/19 21:00 12/12/19 12:00 Novolog SUBCUT 13 unit WM&BEDTIME RICK Administration Protocol Insulin Glargine 10 unit 12/11/19 22:00 12/12/19 07:10 Lantus SUBCUT 10 unit 0800,2200 RICK Administration Isosorbide Mononit rate 30 mg 12/05/19 18:00 12/12/19 09:15 Imdur PO 30 mg BID RICK Administration Polyethylene Glyco l 17 gm 12/03/19 09:00 12/12/19 09:15 Miralax PO 17 gm DAILY RICK Administration Ranolazine 1,000 mg 12/05/19 18:00 12/12/19 09:14 Ranexa PO 1,000 mg BID RICK Administration Fluticasone/Salmet himanshu 1 puff 12/05/19 20:00 12/12/19 07:45 Advair Diskus 25 0-50 INHALATION 1 puff BID.RESPIRATORY S CH Administration Senna/Docusate Sod ium 1 tab 12/03/19 05:15 12/12/19 09:14 Senna-S PO 1 tab DAILY RICK Administration Sodium Chloride 1 gm 11/30/19 17:00 12/12/19 11:29 Salt Tab PO 1 gm QID RICK Administration Terazosin HCl 5 mg 12/07/19 21:00 12/11/19 20:06 Hytrin PO 5 mg BEDTIME RICK Administration Tiotropium [place] 18 mcg 12/06/19 08:00 12/12/19 07:45 Spiriva INHALATION 1 puff DAILY.RESPIRATORY RICK Administration Trazodone HCl 50 mg 12/09/19 11:26 Desyrel PO BEDTIME PRN INSOMNIA Zinc Gluconate 50 mg 12/05/19 12:00 12/12/19 09:15 Zinc Gluconate PO 50 mg DAILY RICK Administration No Known Allergies Allergy (Verified 11/29/19 09:06) Vitals/I&O/Wt Last Vital Signs Temp 98.4 F 12/12/19 11:20 Pulse 62 12/12/19 11:21 Resp 20 H 12/12/19 11:21 BP 140/69 12/12/19 11:21 Pulse Ox 94 12/12/19 11:21 12/11/19 12/12/19 12/12/19 22:59 06:59 14:59 Intake Total 285 / 805 287 / 1092 550 / 550 Output Total 1050 / 1350 200 / 1550 400 / 400 Balance -765 / -545 87 / -458 150 / 150 Weight last 48 hrs Weight 80.331 kg Weight 80.24 kg Physical Exam Const: COMMON NORMALS: no acute distress and alert GENERAL APPEARANCE: cooperative and comfortable NUTRITIONAL APPEARANCE: overweight ORIENTATION/CONSCIOUSNESS: Yes awake OTHER: -Very pleasant, looks appropriate for age HENMT: COMMON NORMALS: normocephalic, atraumatic and moist oral mucous membranes HEAD & SCALP: normocephalic and atraumatic GENERAL EAR: hearing grossly impaired Eye: COMMON NORMALS: Equal, round and reactive pupils present, EOMs intact bilaterally and conjunctivae normal CONJUNCTIVA: Yes conjunctivae normal PUPIL: Yes Equal, round and reactive pupils present Neck/C-Spine: COMMON NORMALS: full ROM GENERAL: Yes normal visual inspection and Yes trachea midline Resp: COMMON NORMALS: No retractions and No use of accessory muscles EFFORT & INSPECTION: Yes symmetric chest movement and No tachypneic AUSCULTATION: diminished lung sounds OTHER: -conversational dyspnea, on 10 L high flow NC, intermittently desaturates particularly with exertion Cardio: COMMON NORMALS: regular rate, regular rhythm, S1 normal heart sound present, S2 normal heart sound present and No murmurs present (Cardio) RATE: regular rate RHYTHM: regular rhythm HEART SOUNDS: S1 normal heart sound present and S2 normal heart sound present GI: COMMON NORMALS: Normal to inspection, nondistended, normoactive bowel sounds present, Soft to palpation and non-tender INSPECTION: Yes central obesity PALPATION: Yes Soft to palpation Extremity: COMMON NORMALS: normal to inspection, full ROM and no clubbing, cyanosis or edema; negative for no pedal edema Neuro: COMMON NORMALS: moves all extremities, no focal motor deficits, no sensory deficits noted and gait normal SENSORIUM/ORIENTATION: Yes alert Psych: COMMON NORMALS: mental status grossly normal, Normal thought process present, cooperative, normal affect and speech normal SPEECH: Yes normal speech THOUGHT PROCESS: Normal thought process present Skin: COMMON NORMALS: no rashes or lesions noted, no jaundice, no petechiae and no mottling GENERAL SKIN EXAM: no rashes or lesions noted Data : 12/12/19 04:30 12/12/19 04:30 Micro: Microbiology 12/10/19 12:56 Gram Stain - Final Sputum - Expectorated Sputum Sputum Culture - Final 12/09/19 08:50 Gram Stain - Final Sputum - Expectorated Sputum Sputum Culture - Final A&P Assessment and plan (1) ARDS (adult respiratory distress syndrome): -Likely secondary to COVID-19 infection -MRSA, Legionella, bacterial antigens negative -Completed 5-day course of Remdesevir -Remains on steroid treatment, inhaler treatments as needed; supportive care -Oxygen requirement increasing, currently on 10 L high flow; PE negative on CTA -Appreciate pulmonology input -Close monitoring of respiratory status -With prolonged hospitalization and continued increase in oxygen requirement anticipate will need intensive pulmonary rehab -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 Repeat testing negative, AFB cultures pending -f/u Aspergillosis testing -on Lasix to maintain negative fluid balance, strict Is & Os, daily weights, fluid restriction Status: Acute (2) Pneumonia due to COVID-19 virus: -On empiric Zosyn -Treatment as noted above Status: Acute (3) Hyponatremia: -on oral supplementation Status: Acute (4) Diabetes: -Accuchecks, ISS, hypoglycemia precautions -continue scheduled insulin -consistent carb diet as tolerated Status: Chronic Qualifiers: Diabetes mellitus complication detail: with polyneuropathy Diabetes mellitus complication status: with neurologic complications Diabetes mellitus roasterman insulin use: with roasterman use Diabetes mellitus type: type 2 Qualified Code(s): E11.42 - Type 2 diabetes mellitus with diabetic polyneuropathy; Z79.4 - intermediate card tender (current) use of insulin (5) Hypertension: -continue to monitor vital signs -continue oral antihypertensives Status: Chronic Qualifiers: Hypertension type: essential hypertension Qualified Code(s): I10 - Essential (primary) hypertension (6) Lumbar spinal stenosis: -pain control as needed -fall precautions Status: Chronic Qualifiers: Neurogenic claudication status: without neurogenic claudication Qualified Code(s): M48.061 - Spinal stenosis, lumbar region without neurogenic claudication Additional A&P Information -MARGARITO: resolved, continue to monitor renal function, avoid nephrotoxins, renally dose meds -hx of CAD s/p CABG x 4, on ASA, statin, ranexa, imdur -quite hard of hearing at baseline -GI ppx with PPI -DVT ppx with Eliquis -Dispo: may require LTAC placement due to need for intensive pulmonary rehab -Code status: FULL code -called Kyleigh Louise ([phone]) and updated her on patient's clinical status. Discussed oxygenation, as well as disposition, specifically LTAC. She would like some time to discuss this further with her before making a final decision. Will follow-up on this tomorrow. Attestations Medical Necessity Statement*: Patient requires hospitalization for continued management of COVID-19 infection, associated pneumonia and ARDS, with increasing oxygen requirement. Time Spent in Patient Care: Greater than 35 minutes (>than 50% of time spent in counselling and/or direct pt care on unit). Coding Level of Care Code Acute Fitness And Wellness Manager for [facility] Fwd Exam Comprehensive Diagnoses ARDS (adult respiratory distress syndrome) J80 Pneumonia due to COVID-19 virus U07.1; J12.89 Hyponatremia E87.1 Diabetes E11.42; Z79.4 Diabetes mellitus complication detail: with polyneuropathy Diabetes mellitus complication status: with neurologic complications Diabetes mellitus alf insulin use: with alf use Diabetes mellitus type: type 2 Hypertension I10 Hypertension type: essential hypertension Lumbar spinal stenosis M48.061 Neurogenic claudication status: without neurogenic claudication
[2019-12-12 16:54] LABS: Glucose Point of Care 361 mg/dL (70-110)
[2019-12-12] MEDS: terazosin 5 mg Capsule PO (21:12)
[2019-12-12 21:32] LABS: Glucose Point of Care 287 mg/dL (70-110)
[2019-12-13 02:30] VITALS: BP 135/63; PULSE 68; RESP 8; O2SAT 95
[2019-12-13] MEDS: piperacillin-tazobactam 3.375 GM in sodium chloride 0.9% (plus) 50 ML IV ×2 (03:47→11:32)
[2019-12-13 06:04] LABS: Basophils % 0.2 %; Eosinophils # 0.1 10^3/uL (0.0-0.8); Eosinophils % 0.6 %; Hematocrit 32.7 % (42.0-52.0); Hemoglobin 10.8 g/dL (11.7-16.6); Lymphocytes # 1.1 10^3/uL (0.8-4.8); Lymphocytes % 9.3 %; Mean Corpuscular Hemoglobin 30.1 pg (28.0-34.0); Mean Corpuscular Volume 91.1 fL (80-94); Mean Platelet Volume 8.7 fL (7.4-10.4); Monocytes # 0.7 10^3/uL (0.2-0.9); Monocytes % 5.4 %; Neutrophils # 10.05 10^3/uL (1.8-7.7); Neutrophils % 83.2 %; Nucleated Red Blood Cells % 0 %; Platelet Count 300 10^3/cmm (130-400); Red Blood Count 3.59 10^6/uL (4.1-5.3); Red Cell Distribution Width 12.1 % (12.1-15.1); White Blood Count 12.1 10^3/uL (4.0-10.0)
[2019-12-13 06:30] LABS: Alanine Aminotransferase 14 U/L (0-41); Albumin Level 2.8 g/dL (3.5-5.2); Alkaline Phosphatase 73 IU/L (40-130); Anion Gap 13.2 (5-19); Aspartate Amino Transferase 19 U/L (0-40); Blood Urea Nitrogen 35 mg/dL (8-23); C Reactive Protein 20.5 mg/L (0.0-4.9); Calcium 7.9 mg/dL (8.5-10.5); Carbon Dioxide 27 mmol/L (22-29); Chloride 96 mmol/L (98-107); Globulin 2.2 g/dL (1.3-4.6); Glucose 111 mg/dL (65-115); Osmolality Calculated 283 mOsm/kg (285-295); Potassium 4.2 mmol/L (3.5-5.1); Sodium 132 mmol/L (136-145); Total Bilirubin 0.4 mg/dL (0.15-1.2)
[2019-12-13 06:31] LABS: Ferritin 445 ng/mL (30-400); Lactate Dehydrogenase 402 U/L (135-225)
[2019-12-13 06:32] VITALS: BP 143/88; PULSE 58; RESP 9; TEMP 36.6; O2SAT 93
[2019-12-13 07:54] LABS: Glucose Point of Care 150 mg/dL (70-110)
[2019-12-13 08:03] LABS: Fibrinogen 557 mg/dL (174-498)
[2019-12-13] MEDS: polyethylene glycol 3350 Pkt 17 gm PO (08:15)
[2019-12-13] MEDS: atorvastatin 40 mg Tablet PO (08:16)
[2019-12-13] MEDS: sennosides-docusate Tablet 1 TAB PO (08:16)
[2019-12-13] MEDS: isosorbide mononitrate ER 30 mg Tablet PO (08:16)
[2019-12-13] MEDS: sodium chloride 1 gm Tablet PO (08:16)
[2019-12-13] MEDS: apixaban 5 mg Tablet PO (08:16)
[2019-12-13] MEDS: ascorbic acid 500 mg Tablet PO (08:16)
[2019-12-13] MEDS: zinc gluconate 50 mg Tablet PO (08:16)
[2019-12-13] MEDS: aspirin 81 mg EC Tablet PO (08:16)
[2019-12-13] MEDS: insulin glargine 100 units/1 mL 10 UNIT SUBCUT (08:16)
[2019-12-13] MEDS: ranolazine (12HR) 500 mg Tablet 1000 MG PO (08:17)
[2019-12-13] MEDS: benzonatate 100 mg Capsule PO (08:51)
--- NOTE | 2019-12-13 09:10 | DCPLANNER ---
Page 2 of IM updated with pt's Spouse; Kyleigh via the phone - no questions.
[2019-12-13 10:00] VITALS: BP 109/59; PULSE 90; RESP 21; TEMP 36.4; O2SAT 85
--- NOTE | 2019-12-13 10:05 | P.DS_ITS ---
Discharge Providers Date of Admission: 11/30/19 16:32 Date of Discharge: December 13, 2019 Attending Provider at Admission: Crow Altman MD Attending Provider at Discharge: India Spain MD Consults: Pulmonology, . Datar Primary Care Provider: Latoya Thao MD Diagnoses at Discharge Discharge Diagnosis (1) ARDS (adult respiratory distress syndrome): Status: Acute (2) Pneumonia due to COVID-19 virus: Status: Acute (3) Hyponatremia: Status: Acute (4) Diabetes: Status: Chronic Qualifiers: Diabetes mellitus type: type 2 Diabetes mellitus residential insulin use: with residential use Diabetes mellitus complication status: with neurologic complications Diabetes mellitus complication detail: with polyneuropathy Qualified Code(s): E11.42 - Type 2 diabetes mellitus with diabetic polyneuropathy; Z79.4 - termite inspector (current) use of insulin (5) Hypertension: Status: Chronic Qualifiers: Hypertension type: essential hypertension Qualified Code(s): I10 - Essential (primary) hypertension (6) Lumbar spinal stenosis: Status: Chronic Qualifiers: Neurogenic claudication status: without neurogenic claudication Qualified Code(s): M48.061 - Spinal stenosis, lumbar region without neurogenic claudication Reason for Visit Reason for Visit: WEAKNESS/FALL Physical Exam Const: COMMON NORMALS: no acute distress and alert GENERAL APPEARANCE: cooperative and comfortable NUTRITIONAL APPEARANCE: overweight ORIENTATION/CONSCIOUSNESS: Yes awake OTHER: -Very pleasant, looks appropriate for age HENMT: COMMON NORMALS: normocephalic, atraumatic and moist oral mucous membranes HEAD & SCALP: normocephalic and atraumatic GENERAL EAR: hearing grossly impaired Eye: COMMON NORMALS: Equal, round and reactive pupils present, EOMs intact bilaterally and conjunctivae normal CONJUNCTIVA: Yes conjunctivae normal PUPIL: Yes Equal, round and reactive pupils present Neck/C-Spine: COMMON NORMALS: full ROM GENERAL: Yes normal visual inspection and Yes trachea midline Resp: COMMON NORMALS: No retractions and No use of accessory muscles EFFORT & INSPECTION: Yes symmetric chest movement and No tachypneic AUSCULTATION: diminished lung sounds OTHER: -conversational dyspnea, on 10 L high flow NC, intermittently desaturates particularly with exertion Cardio: COMMON NORMALS: regular rate, regular rhythm, S1 normal heart sound present, S2 normal heart sound present and No murmurs present (Cardio) RATE: regular rate RHYTHM: regular rhythm HEART SOUNDS: S1 normal heart sound present and S2 normal heart sound present GI: COMMON NORMALS: Normal to inspection, nondistended, normoactive bowel sounds present, Soft to palpation and non-tender INSPECTION: Yes central obesity PALPATION: Yes Soft to palpation Extremity: COMMON NORMALS: normal to inspection, full ROM and no clubbing, cyanosis or edema; negative for no pedal edema Neuro: COMMON NORMALS: moves all extremities, no focal motor deficits, no sensory deficits noted and gait normal SENSORIUM/ORIENTATION: Yes alert Psych: COMMON NORMALS: mental status grossly normal, Normal thought process present, cooperative, normal affect and speech normal SPEECH: Yes normal speech THOUGHT PROCESS: Normal thought process present Skin: COMMON NORMALS: no rashes or lesions noted, no jaundice, no petechiae and no mottling GENERAL SKIN EXAM: no rashes or lesions noted Discharge Data Data Completed and Pending: Completed Studies During Hospitalization Category Date Time Status CT angio chest PE protcl 25763 Rout ine Cat Scan 12/06/19 15:[address] head wo con* 7 0450 Urgent Cat Scan 11/28/19 21:12 Completed XR chest 1V home ble [id number] Q48H Exams 12/08/19 06:00 Completed XR chest 1V home ble 17945 Q48H Exams 12/10/19 06:00 Completed XR chest 1V home ble 30064 Q48H Exams 12/12/19 06:00 Completed XR chest 1V home ble 62561 Routine Exams 12/05/19 08:00 Completed XR chest 1V home ble 24306 Stat Exams 11/29/19 22:11 Completed XR chest 1V home ble 02128 Urgent Exams 11/28/19 21:12 Completed CV echo complete* [id number] Stat Ultrasound 11/29/19 12:20 [place] [id number] Routin e Ultrasound 11/30/19 07:00 Completed Pending at discharge Category Date Time Status Arterial Blood Ga s Full Stat Lab 12/07/19 13:40 Results Aspergillus AG,EI A,Serum Routine Lab 12/09/19 05:30 Received Coronavirus Lab T est PTC Routine Lab 12/12/19 15:15 Received Mycobacteria, Cul ture w/Fluor Lab 12/09/19 08:50 Received Mycobacteria, Cul ture w/Fluor Lab 12/09/19 09:45 Received Mycobacteria, Cul ture w/Fluor Lab 12/10/19 12:56 Received Labs from last 24 hours 12/13/19 12/13/19 12/13/19 07:47 06:30 04:00 WBC RBC Hgb Hct MCV MCH MCHC RDW Plt Count MPV Neut % (Auto) Lymph % (Auto) [place] % (Auto) Eos % (Auto) Baso % (Auto) Neut # (Auto) Lymph # (Auto) [place] # (Auto) Eos # (Auto) Baso # (Auto) Nucleated RBC % (a uto) Nucleated RBCs # Fibrinogen 557 H Sodium Potassium Chloride Carbon Dioxide Anion Gap BUN Creatinine GFR Calculation Glucose POC Glucose 150 Calculated Osmolal ity Calcium Ferritin 445 H Total Bilirubin AST ALT Alkaline Phosphata se Lactate Dehydrogen ase 402 H C-Reactive Protein Total Protein Albumin Globulin Nasal/Oral COVID-1 9 PCR 12/13/19 12/13/19 12/13/19 04:00 04:00 04:00 WBC 12.1 H RBC 3.59 L Hgb 10.8 L Hct 32.7 L MCV 91.1 MCH 30.1 MCHC 33.0 RDW 12.1 Plt Count 300 MPV 8.7 Neut % (Auto) 83.2 Lymph % (Auto) 9.3 [place] % (Auto) 5.4 Eos % (Auto) 0.6 Baso % (Auto) 0.2 Neut # (Auto) 10.05 H Lymph # (Auto) 1.1 [place] # (Auto) 0.7 Eos # (Auto) 0.1 Baso # (Auto) 0.0 Nucleated RBC % (a uto) 0 Nucleated RBCs # 0.0 Fibrinogen Cancelled Sodium 132 L Potassium 4.2 Chloride 96 L Carbon Dioxide 27 Anion Gap 13.2 BUN 35 H Creatinine 0.9 GFR Calculation Not Reportable Glucose 111 POC Glucose Calculated Osmolal ity 283 L Calcium 7.9 L Ferritin Total Bilirubin 0.4 AST 19 ALT 14 Alkaline Phosphata se 73 Lactate Dehydrogen ase C-Reactive Protein 20.5 H Total Protein 5.0 L Albumin 2.8 L Globulin 2.2 Nasal/Oral COVID-1 9 PCR 12/12/19 12/12/19 12/12/19 21:24 16:48 15:15 WBC RBC Hgb Hct MCV MCH MCHC RDW Plt Count MPV Neut % (Auto) Lymph % (Auto) [place] % (Auto) Eos % (Auto) Baso % (Auto) Neut # (Auto) Lymph # (Auto) [place] # (Auto) Eos # (Auto) Baso # (Auto) Nucleated RBC % (a uto) Nucleated RBCs # Fibrinogen Sodium Potassium Chloride Carbon Dioxide Anion Gap BUN Creatinine GFR Calculation Glucose POC Glucose 287 361 Calculated Osmolal ity Calcium Ferritin Total Bilirubin AST ALT Alkaline Phosphata se Lactate Dehydrogen ase C-Reactive Protein Total Protein Albumin Globulin Nasal/Oral COVID-1 9 PCR Pending 12/12/19 11:47 WBC RBC Hgb Hct MCV MCH MCHC RDW Plt Count MPV Neut % (Auto) Lymph % (Auto) [place] % (Auto) Eos % (Auto) Baso % (Auto) Neut # (Auto) Lymph # (Auto) [place] # (Auto) Eos # (Auto) Baso # (Auto) Nucleated RBC % (a uto) Nucleated RBCs # Fibrinogen Sodium Potassium Chloride Carbon Dioxide Anion Gap BUN Creatinine GFR Calculation Glucose POC Glucose 331 Calculated Osmolal ity Calcium Ferritin Total Bilirubin AST ALT Alkaline Phosphata se Lactate Dehydrogen ase C-Reactive Protein Total Protein Albumin Globulin Nasal/Oral COVID-1 9 PCR Vitals: Last Vital Signs Temp 97.6 F 12/13/19 10:00 Pulse 90 12/13/19 10:00 Resp 21 H 12/13/19 10:00 BP 109/59 12/13/19 10:00 Pulse Ox 85 L 12/13/19 10:00 Discharge Plan Discharge Patient Disposition: Xfer Intermediate Care Fac Condition: Stable Prescriptions: No Action nitroglycerin [Nitrostat] 0.4 mg tablet, sublingual 0.4 mg SUBLINGUAL Q5M PRN (Reason: Chest Pain) RF: 0 isosorbide mononitrate 30 mg tablet extended release 24 hr 60 mg PO BID RF: 0 furosemide [Lasix] 40 mg tablet 40 mg PO DAILY RF: 0 atorvastatin 40 mg tablet 40 mg PO DAILY RF: 0 spironolactone 25 mg tablet 25 mg PO DAILY RF: 0 clopidogrel 75 mg tablet 75 mg PO DAILY RF: 0 terazosin 5 mg capsule 5 mg PO BEDTIME RF: 0 aspirin [Adult Aspirin Regimen] 81 mg tablet,delayed release (DR/EC) 81 mg PO DAILY RF: 0 losartan 25 mg tablet 25 mg PO DAILY RF: 0 Colace 100 mg PO BID RF: 0 Levemir FlexTouch U-100 Insuln 100 unit/mL (3 mL) Insulin Pen 25 unit SUBCUT BID RF: 0 ranolazine 1,000 mg tablet extended release 12 hr 1,000 mg PO BID RF: 0 Referrals: Latoya Thao MD [Primary Care Provider] - Coding Level of Care Code Acute Glass Rolling Machine Operator for [facility] Fwd Diagnoses ARDS (adult respiratory distress syndrome) J80 Pneumonia due to COVID-19 virus U07.1; J12.89 Hyponatremia E87.1 Diabetes E11.42; Z79.4 Diabetes mellitus type: type 2 Diabetes mellitus keno terminal operator insulin use: with keno terminal operator use Diabetes mellitus complication status: with neurologic complications Diabetes mellitus complication detail: with polyneuropathy Hypertension I10 Hypertension type: essential hypertension Lumbar spinal stenosis M48.061 Neurogenic claudication status: without neurogenic claudication
[2019-12-13 10:06] VITALS: PULSE 73; RESP 16; O2SAT 91
--- NOTE | 2019-12-13 10:08 | P.TS_ITS ---
Transfer Summary Providers Date of Admission: 11/30/19 16:32 Date of Discharge: 12/13/19 Attending Provider at Admission: Crow Altman MD Attending Provider at Transfer: India Spain MD Consults: Pulmonology Primary Care Provider: Latoya Thao MD Anticipated Date of Transfer: Anticipated date of transfer: 12/13/19 Receiving Facility & Provider: Receiving Provider: [Dr. Olson] Receiving facility: [[facility] in [place], [place]] Diagnoses at Discharge Discharge Diagnosis (1) ARDS (adult respiratory distress syndrome): Status: Acute Problem details: -Likely secondary to COVID-19 infection -MRSA, Legionella, bacterial antigens negative -Completed 5-day course of Remdesevir -Remains on steroid treatment, inhaler treatments as needed; supportive care -Oxygen requirement increasing, currently on 10 L high flow; PE negative on CTA -Appreciate pulmonology input -Close monitoring of respiratory status -With prolonged hospitalization and continued increase in oxygen requirement anticipate will need intensive pulmonary rehab -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 Repeat testing negative, AFB ordered but samples not sent -f/u Aspergillosis testing -on Lasix to maintain negative fluid balance, strict Is & Os, daily weights, fluid restriction -repeat COVID-19 testing pending (2) Pneumonia due to COVID-19 virus: Status: Acute Problem details: -On empiric Zosyn -Treatment as noted above (3) Hyponatremia: Status: Acute Problem details: -on oral supplementation (4) Diabetes: Status: Chronic Problem details: -Accuchecks, ISS, hypoglycemia precautions -continue scheduled insulin -consistent carb diet as tolerated Qualifiers: Diabetes mellitus complication detail: with polyneuropathy Diabetes mellitus complication status: with neurologic complications Diabetes mellitus senior living insulin use: with emt intermediate use Diabetes mellitus type: type 2 Qualified Code(s): E11.42 - Type 2 diabetes mellitus with diabetic polyneuropathy; Z79.4 - meterman (current) use of insulin (5) Hypertension: Status: Chronic Problem details: -continue to monitor vital signs -continue oral antihypertensives Qualifiers: Hypertension type: essential hypertension Qualified Code(s): I10 - Essential (primary) hypertension (6) Lumbar spinal stenosis: Status: Chronic Problem details: -pain control as needed -fall precautions Qualifiers: Neurogenic claudication status: without neurogenic claudication Qualified Code(s): M48.061 - Spinal stenosis, lumbar region without neurogenic claudication Other Information Additional DC diagnoses/information: -MARGARITO: resolved, continue to monitor renal function, avoid nephrotoxins, renally dose meds -hx of CAD s/p CABG x 4, on ASA, statin, ranexa, imdur -quite hard of hearing at baseline Reason for Visit Reason for Visit: WEAKNESS/FALL Hospital Course Hospital Course: Patient has had quite a prolonged hospital course, initially presenting due to concern for possible TB infection and due to clinical decompensation been tested for COVID-19 and found to be positive after which he was transferred to the viral ICU. He was found to have severe pneumonia secondary to COVID-19 infection with requirement for oxygen support and initiation of IV steroids and Remdesevir. Due to inability to rule out bacterial superinfection he was also covered with empiric antibiotic therapy. He has consistently been hyponatremic and being on oral salt tablets. Oxygen requirement continue to gradually increase throughout his hospital stay, peaking at around 10 to 12 L high flow nasal cannula. Pulmonology was consulted due to concern for pneumonia as previously mentioned as well as possible TB infection. Blood cultures have consistently been negative, sputum cultures have grown mixed respiratory rachel, QuantiFERON test was negative and unfortunately AFB testing was not done. Repeat COVID testing has been ordered and results are currently pending. Despite appropriate therapy and supportive care including pulmonary toilet, patient's oxygen requirement has been high and he will need more intensive pulmonary rehab as part of his recovery process. Discussed this extensively with his per his preference and offered LTAC as appropriate disposition option which both patient and are agreeable to. Goal is for patient to receive appropriate pulmonary rehab with subspecialty support available if needed. He has been accepted for transfer to [facility] in [place], [place] under the care of Dr. Olson. Physical Exam Const: COMMON NORMALS: no acute distress, patient oriented x3, healthy appearing and alert GENERAL APPEARANCE: cooperative and comfortable NUTRITIONAL APPEARANCE: overweight ORIENTATION/CONSCIOUSNESS: Yes awake HENMT: COMMON NORMALS: normocephalic, atraumatic, moist oral mucous membranes and oropharynx normal HEAD & SCALP: normocephalic and atraumatic GENERAL EAR: hearing grossly impaired Eye: COMMON NORMALS: Equal, round and reactive pupils present, EOMs intact bilaterally and conjunctivae normal CONJUNCTIVA: Yes conjunctivae normal PUPIL: Yes Equal, round and reactive pupils present Neck/C-Spine: COMMON NORMALS: full ROM, supple and no JVD GENERAL: Yes normal visual inspection and Yes trachea midline Chest: COMMONS NORMALS: normal inspection of the chest and normal palpation of entire chest wall Resp: COMMON NORMALS: normal respiratory effort, No retractions, No use of accessory muscles and clear to auscultation bilaterally EFFORT & INSPECTION: Yes symmetric chest movement and No tachypneic AUSCULTATION: clear to auscultation bilaterally and diminished lung sounds Cardio: COMMON NORMALS: no JVD, regular rate, regular rhythm, S1 normal heart sound present, S2 normal heart sound present and No murmurs present (Cardio) RATE: regular rate RHYTHM: regular rhythm HEART SOUNDS: S1 normal heart sound present and S2 normal heart sound present GI: COMMON NORMALS: Normal to inspection, nondistended, normoactive bowel sounds present, Soft to palpation, non-tender and no masses INSPECTION: Yes central obesity PALPATION: Yes Soft to palpation Extremity: COMMON NORMALS: normal to inspection, full ROM, no joint enlargement and no clubbing, cyanosis or edema; negative for no pedal edema GENERAL: Yes edema (1+) Neuro: COMMON NORMALS: patient oriented x3, moves all extremities, no focal motor deficits, no sensory deficits noted and gait normal SENSORIUM/ORIENTATION: Yes alert Psych: COMMON NORMALS: mental status grossly normal, Normal thought process present, cooperative, normal affect and speech normal SPEECH: Yes normal speech THOUGHT PROCESS: Normal thought process present Skin: COMMON NORMALS: no rashes or lesions noted, no wounds, no jaundice, no petechiae and no mottling GENERAL SKIN EXAM: no rashes or lesions noted TS Data Data Completed and Pending: Completed Studies During Hospitalization Category Date Time Status CT angio chest PE protcl 62623 Rout ine Cat Scan 12/06/19 15:[address] head wo con* 7 0450 Urgent Cat Scan 11/28/19 21:12 Completed XR chest 1V home ble [id number] Q48H Exams 12/08/19 06:00 Completed XR chest 1V home ble [id number] Q48H Exams 12/10/19 06:00 Completed XR chest 1V home ble 99308 Q48H Exams 12/12/19 06:00 Completed XR chest 1V home ble [id number] Routine Exams 12/05/19 08:00 Completed XR chest 1V home ble [id number] Stat Exams 11/29/19 22:11 Completed XR chest 1V home ble [id number] Urgent Exams 11/28/19 21:12 Completed CV echo complete* [id number] Stat Ultrasound 11/29/19 12:20 [place] [address] Routin e Ultrasound 11/30/19 07:00 Completed Pending at discharge Category Date Time Status Arterial Blood Ga s Full Stat Lab 12/07/19 13:40 Results Aspergillus AG,EI A,Serum Routine Lab 12/09/19 05:30 Received Coronavirus Lab T est PTC Routine Lab 12/12/19 15:15 Received Mycobacteria, Cul ture w/Fluor Lab 12/09/19 08:50 Received Mycobacteria, Cul ture w/Fluor Lab 12/09/19 09:45 Received Mycobacteria, Cul ture w/Fluor Lab 12/10/19 12:56 Received Labs from last 24 hours 12/13/19 12/13/19 12/13/19 07:47 06:30 04:00 WBC RBC Hgb Hct MCV MCH MCHC RDW Plt Count MPV Neut % (Auto) Lymph % (Auto) Dare % (Auto) Eos % (Auto) Baso % (Auto) Neut # (Auto) Lymph # (Auto) Dare # (Auto) Eos # (Auto) Baso # (Auto) Nucleated RBC % (a uto) Nucleated RBCs # Fibrinogen 557 H Sodium Potassium Chloride Carbon Dioxide Anion Gap BUN Creatinine GFR Calculation Glucose POC Glucose 150 Calculated Osmolal ity Calcium Ferritin 445 H Total Bilirubin AST ALT Alkaline Phosphata se Lactate Dehydrogen ase 402 H C-Reactive Protein Total Protein Albumin Globulin Nasal/Oral COVID-1 9 PCR 12/13/19 12/13/19 12/13/19 04:00 04:00 04:00 WBC 12.1 H RBC 3.59 L Hgb 10.8 L Hct 32.7 L MCV 91.1 MCH 30.1 MCHC 33.0 RDW 12.1 Plt Count 300 MPV 8.7 Neut % (Auto) 83.2 Lymph % (Auto) 9.3 Dare % (Auto) 5.4 Eos % (Auto) 0.6 Baso % (Auto) 0.2 Neut # (Auto) 10.05 H Lymph # (Auto) 1.1 Dare # (Auto) 0.7 Eos # (Auto) 0.1 Baso # (Auto) 0.0 Nucleated RBC % (a uto) 0 Nucleated RBCs # 0.0 Fibrinogen Cancelled Sodium 132 L Potassium 4.2 Chloride 96 L Carbon Dioxide 27 Anion Gap 13.2 BUN 35 H Creatinine 0.9 GFR Calculation Not Reportable Glucose 111 POC Glucose Calculated Osmolal ity 283 L Calcium 7.9 L Ferritin Total Bilirubin 0.4 AST 19 ALT 14 Alkaline Phosphata se 73 Lactate Dehydrogen ase C-Reactive Protein 20.5 H Total Protein 5.0 L Albumin 2.8 L Globulin 2.2 Nasal/Oral COVID-1 9 PCR 12/12/19 12/12/19 12/12/19 21:24 16:48 15:15 WBC RBC Hgb Hct MCV MCH MCHC RDW Plt Count MPV Neut % (Auto) Lymph % (Auto) Dare % (Auto) Eos % (Auto) Baso % (Auto) Neut # (Auto) Lymph # (Auto) Dare # (Auto) Eos # (Auto) Baso # (Auto) Nucleated RBC % (a uto) Nucleated RBCs # Fibrinogen Sodium Potassium Chloride Carbon Dioxide Anion Gap BUN Creatinine GFR Calculation Glucose POC Glucose 287 361 Calculated Osmolal ity Calcium Ferritin Total Bilirubin AST ALT Alkaline Phosphata se Lactate Dehydrogen ase C-Reactive Protein Total Protein Albumin Globulin Nasal/Oral COVID-1 9 PCR Pending 12/12/19 11:47 WBC RBC Hgb Hct MCV MCH MCHC RDW Plt Count MPV Neut % (Auto) Lymph % (Auto) Dare % (Auto) Eos % (Auto) Baso % (Auto) Neut # (Auto) Lymph # (Auto) Dare # (Auto) Eos # (Auto) Baso # (Auto) Nucleated RBC % (a uto) Nucleated RBCs # Fibrinogen Sodium Potassium Chloride Carbon Dioxide Anion Gap BUN Creatinine GFR Calculation Glucose POC Glucose 331 Calculated Osmolal ity Calcium Ferritin Total Bilirubin AST ALT Alkaline Phosphata se Lactate Dehydrogen ase C-Reactive Protein Total Protein Albumin Globulin Nasal/Oral COVID-1 9 PCR Vitals: Last Vital Signs Temp 97.6 F 12/13/19 10:00 Pulse 90 12/13/19 10:00 Resp 21 H 12/13/19 10:00 BP 109/59 12/13/19 10:00 Pulse Ox 85 L 12/13/19 10:00 TS Medications Medications Home Medications aspirin 81 mg tablet,delayed release 81 mg PO DAILY 08/11/19 [History Confirmed 11/29/19] atorvastatin 40 mg tablet 40 mg PO DAILY 08/11/19 [History Confirmed 11/29/19] clopidogrel 75 mg tablet 75 mg PO DAILY 08/11/19 [History Confirmed 11/29/19] furosemide 40 mg tablet 40 mg PO DAILY 08/11/19 [History Confirmed 11/29/19] isosorbide mononitrate 30 mg tablet,extended release 24 hr 60 mg PO BID tab 08/11/19 [History Confirmed 11/29/19] nitroglycerin 0.4 mg sublingual tablet 0.4 mg SUBLINGUAL Q5M PRN 08/11/19 [History Confirmed 11/29/19] spironolactone 25 mg tablet 25 mg PO DAILY 08/11/19 [History Confirmed 11/29/19] terazosin 5 mg capsule 5 mg PO BEDTIME 08/11/19 [History Confirmed 11/29/19] Colace 100 mg PO BID 11/28/19 [History Confirmed 11/29/19] losartan 25 mg PO DAILY 11/28/19 [History Confirmed 11/29/19] insulin detemir U-100 [Levemir FlexTouch U-100 Insuln] 25 unit SUBCUT BID 11/29/19 [History Confirmed 11/29/19] ranolazine 1,000 mg PO BID 11/29/19 [History Confirmed 11/29/19] Active Medications Acetaminophen (Tylenol) 650 mg PO Q4H PRN PRN Reason: MILD PAIN OR INCREASE TEMP Last Admin: 12/01/19 20:10 Dose: 650 mg Documented by: Apixaban (Eliquis) 5 mg PO BID [facility] Last Admin: 12/13/19 08:16 Dose: 5 mg Documented by: Ascorbic Acid (Vitamin C) 500 mg PO DAILY [facility] Last Admin: 12/13/19 08:16 Dose: 500 mg Documented by: Aspirin (Aspirin Ec) 81 mg PO DAILY [facility] Last Admin: 12/13/19 08:16 Dose: 81 mg Documented by: Atorvastatin Calcium (Lipitor) 40 mg PO DAILY [facility] Last Admin: 12/13/19 08:16 Dose: 40 mg Documented by: Benzonatate (Tessalon Pearls) 100 mg PO TID [facility] Last Admin: 12/13/19 08:51 Dose: 100 mg Documented by: Denture Adhesive (Fixodent) 1 applic DENTAL PRN PRN PRN Reason: denture adhesive Dexamethasone (Decadron) 6 mg IVP Q24H RICK Last Admin: 12/12/19 09:39 Dose: 6 mg Documented by: Dextrose (D50w) 25 ml IVP ONCE PRN; Protocol PRN Reason: hypoglycemia protocol Dextrose (D50w) 50 ml IVP PRN PRN; Protocol PRN Reason: hypoglycemia protocol Furosemide (Lasix) 40 mg IVP Q24H RICK Last Admin: 12/12/19 11:33 Dose: 40 mg Documented by: Glucagon (Glucagen) 1 mg IM ONCE PRN; Protocol PRN Reason: Adult Acute Hypoglycemia Prot. Guaifenesin/Dextromethorphan (Robitussin Dm Oral Liq) 5 ml PO Q4H PRN PRN Reason: COUGH Last Admin: 12/12/19 11:28 Dose: 5 ml Documented by: Dextrose (D5w) 500 mls @ 100 mls/hr IV ONCE PRN; Protocol PRN Reason: Adult Acute Hypoglycemia Prot Piperacillin Sod/Tazobactam (Sod 3.375 gm/ Sodium Chloride) 50 mls @ 12.5 mls/hr IV Q8H RICK; Protocol Last Admin: 12/13/19 03:47 Dose: 12.5 mls/hr Documented by: Insulin Aspart (Novolog) 0 unit SUBCUT WM&BEDTIME [facility]; Protocol Last Admin: 12/13/19 08:17 Dose: 6 unit Documented by: Insulin Glargine (Lantus) 10 unit SUBCUT 0800,2200 RICK Last Admin: 12/13/19 08:16 Dose: 10 unit Documented by: Isosorbide Mononitrate (Imdur) 30 mg PO BID [facility]ICK Last Admin: 12/13/19 08:16 Dose: 30 mg Documented by: Polyethylene Glycol (Miralax) 17 gm PO DAILY RICK Last Admin: 12/13/19 08:15 Dose: 17 gm Documented by: Ranolazine (Ranexa) 1,000 mg PO BID [facility] Last Admin: 12/13/19 08:17 Dose: 1,000 mg Documented by: Fluticasone/Salmeterol (Advair Diskus 250-50) 1 puff INHALATION BID.RESPIRATORY RICK Last Admin: 12/12/19 20:30 Dose: 1 puff Documented by: Senna/Docusate Sodium (Senna-S) 1 tab PO DAILY [facility] Last Admin: 12/13/19 08:16 Dose: 1 tab Documented by: Sodium Chloride (Salt Tab) 1 gm PO QID [facility] Last Admin: 12/13/19 08:16 Dose: 1 gm Documented by: Terazosin HCl (Hytrin) 5 mg PO BEDTIME [facility] Last Admin: 12/12/19 21:12 Dose: 5 mg Documented by: Tiotropium Media (Spiriva) 18 mcg INHALATION DAILY.RESPIRATORY [facility] Last Admin: 12/12/19 07:45 Dose: 1 puff Documented by: Trazodone HCl (Desyrel) 50 mg PO BEDTIME PRN PRN Reason: INSOMNIA Zinc Gluconate (Zinc Gluconate) 50 mg PO DAILY [facility] Last Admin: 12/13/19 08:16 Dose: 50 mg Documented by: Discharge Plan Discharge Patient Disposition: Xfer [facility] Condition: Stable Prescriptions: Continued nitroglycerin [Nitrostat] 0.4 mg tablet, sublingual 0.4 mg SUBLINGUAL Q5M PRN (Reason: Chest Pain) RF: 0 furosemide [Lasix] 40 mg tablet 40 mg PO DAILY RF: 0 atorvastatin 40 mg tablet 40 mg PO DAILY RF: 0 terazosin 5 mg capsule 5 mg PO BEDTIME RF: 0 aspirin [Adult Aspirin Regimen] 81 mg tablet,delayed release (DR/EC) 81 mg PO DAILY RF: 0 losartan 25 mg tablet 25 mg PO DAILY RF: 0 Colace 100 mg PO BID RF: 0 Levemir FlexTouch U-100 Insuln 100 unit/mL (3 mL) Insulin Pen 25 unit SUBCUT BID RF: 0 ranolazine 1,000 mg tablet extended release 12 hr 1,000 mg PO BID RF: 0 Changed isosorbide mononitrate 30 mg tablet extended release 24 hr 30 mg PO BID Qty: 0 RF: 0 Held clopidogrel 75 mg tablet 75 mg PO DAILY RF: 0 Hold Instructions: Until completion of Eliquis to minimize bleeding risk Discontinued spironolactone 25 mg tablet 25 mg PO DAILY RF: 0 Discharge Orders: Discharge Order (Routine); Ordered 12/13/19 Ordered By: India Spain Referrals: Latoya Thao MD [Primary Care Provider] - Discharge Diet: Cardiac and Diabetic Discharge Activity: Increase activity as tolerated and As per PT/OT instructions Transfer Attestations Time Spent in Transfer Care*: greater than 30 min Specific Discharge Activities: Specific discharge activities: educating patient, educating and/or supporting family/caregiver ( Kyleigh Louise), discussing with transplant case manager/social workers/dc planners, documenting/other paperwork and evaluating patient/reviewing data Status at Transfer: Cognitive status at transfer: cognitively intact , Behavioral status at transfer: cooperative , Functional status at transfer: other assisted ambulation Quality Metrics Clinical Quality Measures: During this hospital stay, did patient experience: None Coding Level of Care Code Acute Chief Writer for g Fwd Exam Comprehensive Diagnoses ARDS (adult respiratory distress syndrome) J80 Pneumonia due to COVID-19 virus U07.1; J12.89 Hyponatremia E87.1 Diabetes E11.42; Z79.4 Diabetes mellitus complication detail: with polyneuropathy Diabetes mellitus complication status: with neurologic complications Diabetes mellitus senior living insulin use: with emt intermediate use Diabetes mellitus type: type 2 Hypertension I10 Hypertension type: essential hypertension Lumbar spinal stenosis M48.061 Neurogenic claudication status: without neurogenic claudication
[2019-12-13 11:28] LABS: Glucose Point of Care 242 mg/dL (70-110)
[2019-12-13] MEDS: dexamethasone 4 mg/mL INJ 6 MG IVP (11:31)
[2019-12-13 13:19] VITALS: BP 140/65; PULSE 61; RESP 18; TEMP 36.6; O2SAT 93
--- NOTE | 2019-12-13 13:49 | PC.NURSE ---
called report to [facility] and spoke with MARIN Morataya. Notified patient's of transport and that she can come and get patient's clothing per patient's request.
--- NOTE | 2019-12-13 13:53 | PC.NURSE ---
called 911 to set up transport.
--- NOTE | 2019-12-13 14:45 | PC.NURSE ---
patient picked up by transport to be taken to [facility] by [facility]. Notified [facility] that patient is on the way.
[2019-12-13 14:47] VITALS: BP 140/65; PULSE 61; RESP 18; TEMP 36.6; O2SAT 93
[2019-12-14 20:55] LABS: Coronavirus Lab Test PTC Positive
[2019-12-15 17:22] LABS: Aspergillus AG,EIA,Serum NOT DETECTED; Aspergillus Galactomannan Inde <0.50
--- NOTE | 2019-12-20 14:38 | PC.SOCIAL ---
Called [facility] in [place], patient was still at their facility up till yesterday, he transferred out to [facility] ICU in [place].
== END 2019-12-13 14:48 | DRG 177 ==
LOC: ER 23:33 → MEDSURG 23:48 → ICU 11-30 18:49
PROVIDERS: Emergency Medicine; Internal Medicine; Internal Medicine Pulmonary Disease; Student in an Organized Health Care Education/Training Program; Admitting Provider Internal Medicine; Emergency Provider Family Medicine; Family Provider Family Medicine; PCP Family Medicine; Visit Provider Family Medicine
DX: U07.1 COVID-19 (principal); J12.89 Other viral pneumonia; J80 Acute respiratory distress syndrome; E87.1 Hypo-osmolality and hyponatremia; N17.9 Acute kidney failure, unspecified; E86.0 Dehydration; Z95.1 Presence of aortocoronary bypass graft; E11.65 Type 2 diabetes mellitus with hyperglycemia; E11.42 Type 2 diabetes mellitus with diabetic polyneuropathy; I10 Essential (primary) hypertension; M48.061 Spinal stenosis, lumbar region without neurogenic claudication; Z22.7 Latent tuberculosis; Z79.82 Long term (current) use of aspirin; Z79.4 Long term (current) use of insulin
CPT/HCPCS: 12345; 36415; 36416; 36600; 70450; 71045; 71275; 80048; 80051; 80053; 80202; 81001; 81003; 82550; 82728; 82810; 82962; 83520; 83605; 83615; 83735; 83880; 83930; 83935; 83986; 84145; 84295; 84300; 84443; 84550; 85025; 85378; 85384; 85651; 86140; 86403; 86480; 87015; 87040; 87070; 87086; 87116; 87205; 87206; 87305; 87426; 87449; 87635; 87641; 87801; 87804; 93005; 93306; 93970; 94640; 94660; 96372; 96375; 97110; 97116; 97161; 99283; G0378; J1100; J1644; J1815 ×2; J1940; J1956; J2543; J3370; J7030; J7050; J7512; Q9967